=== PATIENT | female | born 1975 | race Caucasian/White ===

== ENCOUNTER 2017-07-24 17:57 | Inpatient (IN) | payer MEDICAID ==
[2017-07-24] VITALS (11 sets, daily range): BP systolic 122–284; BP diastolic 71–170; PULSE 67–74; RESP 16–27; TEMP 97.2; O2SAT 80–100
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
[2017-07-24] MEDS ORDERED: SUCCINYLCHOLINE CHLORIDE 200 MG/10 ML VIAL IV PUSH ONE (18:15)
[2017-07-24] MEDS ORDERED: ETOMIDATE 20 MG/10 ML VIAL IVP ONE (18:15)
[2017-07-24] MEDS ORDERED: SODIUM CHLORIDE 0.9% FLUSH 10 ML FLUSH IVF PRN ×2 (18:15)
[2017-07-24] MEDS ORDERED: PROPOFOL 200 MG/20 ML AMP IV ONE (18:15)
[2017-07-24 18:23] LABS: BASOPHIL # 0.1 TH/MM3 (0-0.2); BASOPHIL % 0.7 % (0.0-2.0); EOSINOPHIL # 0.8 TH/MM3 (0-0.4); EOSINOPHIL % 6.1 % (0.0-4.0); LYMPH % 24.6 % (9.0-44.0); LYMPHOCYTE # 3.2 TH/MM3 (1.0-4.8); MEAN CELL VOLUME 93.9 FL (80.0-100.0); MEAN CORPUSCULAR HEMOGLOBIN 32.8 PG (27.0-34.0); MEAN PLATELET VOLUME 8.6 FL (7.0-11.0); MONO % 6.9 % (0.0-8.0); MONOCYTE # 0.9 TH/MM3 (0-0.9); NEUT % 61.7 % (16.0-70.0); PLATELET COUNT 340 TH/MM3 (150-450); RED BLOOD COUNT 4.57 MIL/MM3 (4.00-5.30); RED CELL DISTRIBUTION WIDTH 12.6 % (11.6-17.2); WHITE BLOOD COUNT 12.9 TH/MM3 (4.0-11.0)
--- NOTE | 2017-07-24 18:23 | RADRPT ---
EXAM DATE/TIME: 07/24/2017 18:11 [place] COMPARISON: No previous studies available for comparison. INDICATIONS : Patient unresponsive; seizure en route. RADIATION DOSE: 33.29 CTDIvol (mGy) MEDICAL HISTORY : Non-responsive. SURGICAL HISTORY : Non-responsive. ENCOUNTER: Initial ACUITY: 1 day PAIN SCALE: Non-responsive LOCATION: cranial TECHNIQUE: Multiple contiguous axial images were obtained of the head. Using automated exposure control and adj ustment of the mA and/or kV according to patient size, radiation dose was kept as low as reasonably a chievable to obtain optimal diagnostic quality images. DICOM format image data is available electro nically for review and comparison. FINDINGS: The examination is abnormal demonstrating a large parenchymal uniformly hyperdense hemorrhage with ep icenter in the left mid convexity frontoparietal region measuring 5.2 x 4.8 cm. The hematoma does ex tend inferiorly into the central thalamus with the thalamic portion measuring 2.2 x 1.9 cm; there is also extension of the thalamic hemorrhage into the left mesencephalon.. There is extension of blood into the lateral 3rd and 4th ventricles. There is significant midline shift towards the right measur ing 1.3 cm. There is effacement of the supracerebellar cistern contains being some transtentorial he rniation. The calvarium is intact. CONCLUSION: Greater than 5 cm parenchymal hemorrhage involving the left parietal lobe, left thalamus, and left me sencephalon with no rupture into the ventricles, greater than 1.3 cm midline shift towards the right, and transtentorial herniation. Dejuan Rodriguez MD on July 24, 2017 at 18:16 Board Certified Radiologist. This report was verified electronically.
[2017-07-24] MEDS ORDERED: MANNITOL INJ 0 ML ONE (18:29)
[2017-07-24] MEDS ORDERED: MANNITOL 12.5 GM/50 ML VIAL IV ONE ×2 (18:30→19:15)
[2017-07-24] MEDS: PROPOFOL 1000 MG/100 ML INJ 100 ML IV PRN (18:30)
[2017-07-24] MEDS ORDERED: niCARdipine INJ 25 MG in SODIUM CHLOR 0.9% 250 ML INJ 240 ML IV PRN ×2 (18:30→19:00)
[2017-07-24] MEDS ORDERED: THROMBIN (TOPICAL) 5,000 UNIT VIAL ONE (18:35)
[2017-07-24] MEDS: GENTAMICIN SULFATE 80 MG/2 ML VIAL ONE ×2 (18:35→19:42)
[2017-07-24] MEDS ORDERED: GELFOAM SIZE 100 ONE (18:35)
[2017-07-24 18:36] LABS: PROTHROMBIN TIME - PATIENT 10.1 SEC (9.8-11.6)
[2017-07-24 18:46] LABS: ALBUMIN 4.2 GM/DL (3.4-5.0); ALKALINE PHOSPHATASE 93 U/L (45-117); ALT (GPT) 22 U/L (10-53); AST (GOT) 41 U/L (15-37); BICARBONATE 22.4 MEQ/L (21.0-32.0); BLOOD UREA NITROGEN 19 MG/DL (7-18); CALCIUM 8.1 MG/DL (8.5-10.1); CHLORIDE 104 MEQ/L (98-107); CREATININE 0.81 MG/DL (0.50-1.00); GLOMERULAR FILTRATION RATE 79 ML/MIN (>89); GLUCOSE,RANDOM 184 MG/DL (74-106); SODIUM (NA) 138 MEQ/L (136-145); TOTAL BILIRUBIN ADULT 0.5 MG/DL (0.2-1.0); TOTAL PROTEIN 7.6 GM/DL (6.4-8.2); TROPONIN I LESS THAN 0.02 NG/ML (0.02-0.05)
[2017-07-24] MEDS ORDERED: LIDOCAINE 1%/EPINEPHrine 1:100,000 SOLN 20 ML VIAL ONE (18:48)
[2017-07-24] MEDS ORDERED: CHLORHEXIDINE GLUCONATE 2 % 1 PACK (2 CLOTHS) TOP PRN ×2 (19:00→21:30)
[2017-07-24] MEDS ORDERED: NITROPRUSSIDE INJ 50 MG in DEXTROSE 5% IN WATER INJ 248 ML IV PRN ×2 (19:00)
[2017-07-24] MEDS ORDERED: fentaNYL DRIP 250 ML IV PRN (19:00)
[2017-07-24] MEDS ORDERED: MISCELLANEOUS NURSING INFORMATION XX SCH ×2 (19:00→20:15)
[2017-07-24] MEDS ORDERED: ceFAZolin 2 GM PREMIX 0 ML ONE (19:14)
[2017-07-24] MEDS ORDERED: VANCOMYCIN HCL 1000 MG VIAL ONE (19:28)
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
--- NOTE | 2017-07-24 19:52 | MB ---
cc: DIMA JAMES M.D. DATE OF CONSULTATION: 07/24/2017. REASON FOR CONSULTATION: Left basal ganglia / thalamic hemorrhage. HISTORY OF PRESENT ILLNESS: 41-year-old female who was found unresponsive with vomit and agonal respirations. EMS was summoned and brought the patient to the [facility] Emergency Room. EMS was unable to intubate her and she was intubated on arrival to the emergency room. [place] coma Score was 3 at the scene and after intubation resuscitation improved to 4 with dilated pupils, left larger than right. 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 That is when he called the EMS. She does have a history of hypertension but has not been taking any medications and does not check her blood pressure regularly. CT scan of the head obtained reveals a large left basal ganglia hemorrhage that extends into the thalamus as well as the lateral ventricle with about a centimeter [id number] midline shift. The hematoma measures about 5.8 cm in dimension. Her initial blood pressure was 270/136 and she has been placed on a Cardene drip along with Diprivan and has received mannitol also. PAST MEDICAL HISTORY: 1. Hypertension. 2. History of stroke ten years ago. MEDICATIONS: None. ALLERGIES: NO KNOWN DRUG ALLERGIES. SOCIAL HISTORY: She is . 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 She does not smoke. Drinks usually about six beers a day. denies any illicit drug use. REVIEW OF SYSTEMS: Unobtainable. The patient is comatose. FAMILY HISTORY: Positive for cerebral hemorrhages /strokes in the family but no cancer or coronary artery disease. LABORATORY FINDINGS: White blood cell count 12.9, hemoglobin 15, platelet count 340,000. PT 10.1, INR 1.0, PTT 21.9. Sodium 138, potassium 2.6, BUN 19, creatinine 0.81, glucose 184. PHYSICAL EXAMINATION: GENERAL: The patient is lying on a stretcher in the emergency room intubated and sedated with disheveled appearance. VITAL SIGNS: The initial blood pressure 270/136, currently it is 149/74, pulse is 74, respiratory rate 24 on the ventilator. Her percent FIO2 100% oxygen. HEAD: No Fields's or raccoon sign. NECK: Neck is supple with no guarding or rigidity. Midline trachea. CHEST: Clear bilaterally. HEART: Regular rate rhythm, S1-S2. ABDOMEN: Abdomen soft and nontender. No hepatosplenomegaly. 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 No deformities. No edema. SKIN: She has the abrasions in the upper and lower extremities along with ecchymosis. No rash. NEUROLOGICAL EXAMINATION: She does not open her eyes. Pupils - the left pupil is 6 mm and nonreactive, right is 5- and nonreactive. No corneal. She has a cough reflex. She has decerebrate posturing to stimulation bilaterally. [place] coma score is a 4. IMPRESSION: 1. Large left basal ganglia / thalamic hemorrhage with extension into the ventricle and associated mass effect and midline shift with very poor neurologic examination and consistent with a transtentorial herniation. 2. Unregulated hypertension, which is likely the source of the current bleed. 3. Alcohol abuse. PLAN: I had a discussion with the patient's and as a heroic measure, recommended an emergent left craniotomy for cerebral hemorrhage evacuation and ventriculostomy placement. She has received mannitol and is currently also receiving Diprivan and Fentanyl. The risks and benefits were discussed along the possibility that despite surgical intervention that she may progress to brain . In the low likelihood that she survives this hemorrhage, she will likely also have significant long-term neurologic deficits. He understands and they requested that we proceed and informed consent was obtained. She will subsequently be admitted to the intensive care unit for critical care management. Also discussed with the ER physician, Dr. Rangel and the golf tournament consultant, Dr. Madrigal. MD JUSTIN Avalos/SAWYER /7:01 PM /7:20 PM
[2017-07-24] MEDS ORDERED: CHLORHEXIDINE 0.12% (ORAL KIT) 15 ML CUP MT SCH (20:00)
[2017-07-24] MEDS ORDERED: MANNITOL 12.5 GM/50 ML VIAL IV SCH ×2 (20:00→22:00)
[2017-07-24 20:02] LABS: BILIRUBIN, URINE NEG (NEG); BLOOD, URINE LARGE (NEG); GLUCOSE,URINE 150 mg/dL (NEG); KETONE, URINE 10 mg/dL (NEG); NITRITE,URINE NEG (NEG); PH, URINE 7.5 (5.0-8.5); URINE COLOR YELLOW (YELLW/STRAW); URINE LEUKOCYTE ESTERASE NEG (NEG)
[2017-07-24] MEDS ORDERED: ACETAMINOPHEN 325 MG TAB PO PRN (20:15)
[2017-07-24] MEDS: CHLORHEXIDINE 0.12% (ORAL KIT) 15 ML CUP MT SCH (20:15)
[2017-07-24] MEDS ORDERED: RESP: ALBUTEROL 2.5 MG/3 ML NEB (PRN) INH (20:30)
--- NOTE | 2017-07-24 20:35 | PD.OP ---
Operative Report Date of Surgery: Jul 24, 2017 Preoperative Diagnosis: Large left cerebral/basal ganglia/thalamic hemorrhage with intraventricular extension Postoperative Diagnosis: Same Procedure: Left frontotemporal craniotomy with cerebral hematoma evacuation; ventriculostomy placement; microsurgical technique Anesthesia: Gen. endotracheal by Marcial Vale Surgeon: Austin Hill M.D. [facility] Supervisor(s): Betty Rascon Operation and Findings: Following initiation of a general endotracheal anesthesia the patient had invasive lines and Foster catheter in place along with the sequential compression device. A gram of vancomycin was administered intravenously and she was positioned with the left side up on a shoulder roll and head secured to a horseshoe headrest. The left side of the head shaved and prepped with ChloraPrep and sterilely draped in the usual sterile fashion. A reverse question lori incision site overlying the frontotemporal area was then made after infiltrating the scalp was 0.5% Marcaine with epinephrine solution a skin incision made extending onto the galea at the previous incision site. Jamila clips were used at the scalp edges for hemostasis and the flap retracted inferiorly with hooks. The scalp was retracted back with the fishhooks and with an automated tooling mechanic temporal wesley hole made and with the craniotome upon Elevating exposing the frontotemporal areas. The dura was opened in a cruciate format and significant brain swelling was noted along with the hemorrhage is approaching the cortical surface. A corticectomy was made in the frontal lobe and the middle frontal gyrus and about 3 cm from the cortical surface I encountered his hemorrhage in the subcortical basal ganglia area which was larger than the CT scan imaging study suggested extended to the basal ganglia as well as the lateral ventricle and this was evacuated. I did not identify any obvious underlying vascular malformation or neoplasm. After the hematoma evacuation the brain was more relaxed and pulsatile. Bipolar cautery was used for hemostasis at the hematoma evacuation bed using microtechnique with the microscope magnification. Gelfoam with thrombin also used for hemostasis. A Bactiseal ventriculostomy catheter was passed into the lateral ventricle and the tunnel on the scalp and secured the exit site with the 3-0 nylon tie. The dura was approximated using 4 Nurolon interrupted sutures along with compressed Gelfoam. The bone flap was then approximated using Kelvin mini plates. The area was then copiously irrigated. The temporalis fascia was approximated and using 2-0 Vicryl sutures and the galea reapproximated using 2- 0 Vicryl procedures and final scalp closure was with tim. A sterile pressure dressing was then applied .There were no intraoperative complications and all sponge and needle count was correct at the end of the procedure. Estimated blood loss about 150 cc. She was taken to the intensive care unit after completion of the surgical procedure. Austin Hill MD Jul 24, 2017 20:35
[2017-07-24 21:00] LABS: PHOSPHORUS 2.2 MG/DL (2.5-4.9)
[2017-07-24] MEDS ORDERED: SODIUM PHOSPHATE INJ 30 MMOL in SODIUM CHLOR 0.9% 250 ML INJ 240 ML IV PRN (21:00)
[2017-07-24] MEDS ORDERED: FAMOTIDINE 20 MG/2 ML VIAL IV PUSH PRN (21:00)
[2017-07-24] MEDS ORDERED: POTASSIUM PHOSPHATE INJ 30 MMOL in SODIUM CHLOR 0.9% 250 ML INJ 250 ML IV PRN (21:00)
[2017-07-24] MEDS ORDERED: MAGNESIUM OXIDE 400 MG TAB PO PRN (21:00)
[2017-07-24] MEDS ORDERED: levETIRAcetam INJ 500 MG in SODIUM CHLORIDE 0.9% INJ 100 ML IV SCH (21:00)
[2017-07-24] MEDS ORDERED: POTASSIUM CHLORIDE 25 MEQ EFFERVESCENT TAB PO PRN (21:00)
[2017-07-24] MEDS ORDERED: POTASSIUM CHLORIDE 25 MEQ EFFERVESCENT TAB PO ONE (21:00)
[2017-07-24] MEDS ORDERED: POTASSIUM PHOSPHATE MONOBASIC 500 MG TAB PO/TUBE PRN (21:00)
[2017-07-24] MEDS ORDERED: POTASSIUM CHLOR 20 MEQ PREMIX 100 ML IV PRN (21:00)
[2017-07-24] MEDS ORDERED: SODIUM CHLORIDE 0.9% FLUSH 10 ML FLUSH IV FLUSH PRN (21:00)
[2017-07-24] MEDS ORDERED: FAMOTIDINE 20 MG/2 ML VIAL IV PUSH SCH (21:00)
[2017-07-24] MEDS: SODIUM CHLORIDE 0.9% FLUSH 10 ML FLUSH IV FLUSH SCH (21:00)
[2017-07-24] MEDS ORDERED: FAMOTIDINE 20 MG TAB TUBE SCH (21:00)
[2017-07-24] MEDS ORDERED: FAMOTIDINE 20 MG TAB PO SCH (21:00)
[2017-07-24] MEDS ORDERED: hydrALAZINE HCL 20 MG/ML VIAL IV PUSH PRN (21:00)
[2017-07-24] MEDS ORDERED: MAGNESIUM SULFATE INJ 4 GM in SODIUM CHLORIDE 0.9% INJ 92 ML IV PRN (21:00)
[2017-07-24] MEDS: SODIUM CHLOR 0.9% 1000 ML INJ 1,000 ML IV SCH (21:00)
[2017-07-24] MEDS ORDERED: levETIRAcetam INJ 100 ML IV SCH (21:00)
[2017-07-24] MEDS: POTASSIUM CHLOR 20 MEQ PREMIX 100 ML IV SCH ×2 (21:00→23:00)
[2017-07-24] MEDS ORDERED: POTASSIUM CHLOR 40 MEQ PREMIX 100 ML IV PRN (21:00)
[2017-07-24] MEDS ORDERED: POTASSIUM PHOSPHATE MONOBASIC 500 MG TAB PO PRN (21:00)
[2017-07-24 21:02] LABS: MAGNESIUM 1.7 MG/DL (1.5-2.5)
[2017-07-24] MEDS ORDERED: SODIUM CHLORIDE 23.4% INJ 188 MEQ in SODIUM CHLOR 0.9% 1000 ML INJ 1,000 ML IV SCH (21:30)
[2017-07-24] MEDS: RESP: ALBUTEROL 2.5 MG/IPRATROPIUM 0.5 MG NEB (SCH) NEB (21:33)
[2017-07-24] MEDS: fentaNYL 2,500 MCG/NS 250 ML IV PRN (21:56)
[2017-07-24] MEDS ORDERED: SODIUM CHLORIDE 23.4% INJ 240 MEQ in SYRINGE/BAG 1 EA IV PRN (22:00)
[2017-07-24] MEDS ORDERED: MULTIVITAMIN INJ 10 ML, THIAMINE INJ 100 MG, FOLIC ACID INJ 1 MG in SODIUM CHLORID 0.9%... IV SCH (22:00)
[2017-07-24] MEDS ORDERED: MAGNESIUM SULFATE INJ 2 GM in SODIUM CHLORIDE 0.9% INJ 96 ML IV PRN (22:00)
[2017-07-24] MEDS: PANTOPRAZOLE SODIUM 40 MG VIAL IV PUSH SCH (22:00)
[2017-07-24 22:16] LABS: AUTOMATED NEUTROPHIL # 11.4 TH/MM3 (1.8-7.7); BASOPHIL % 0.2 % (0.0-2.0); EOSINOPHIL # 0.1 TH/MM3 (0-0.4); HEMATOCRIT 36.8 % (35.0-46.0); LYMPH % 6.7 % (9.0-44.0); LYMPHOCYTE # 0.9 TH/MM3 (1.0-4.8); MEAN CORPUSCULAR HEMOGLOBIN 32.5 PG (27.0-34.0); MEAN CORPUSCULAR HGB CONC 35.4 % (32.0-36.0); MEAN PLATELET VOLUME 8.4 FL (7.0-11.0); MONO % 8.4 % (0.0-8.0); MONOCYTE # 1.1 TH/MM3 (0-0.9); NEUT % 83.7 % (16.0-70.0); PLATELET COUNT 269 TH/MM3 (150-450); RED CELL DISTRIBUTION WIDTH 12.7 % (11.6-17.2); WHITE BLOOD COUNT 13.6 TH/MM3 (4.0-11.0)
--- NOTE | 2017-07-24 22:17 | PD.PROCEDR ---
Central Line Procedure REASON FOR PROCEDURE Central venous access PROCEDURE PERFORMED Central line placement: RIJ central line CONSENT Informed consent for procedure was obtained and time out performed. The risks and benefits of the procedure were discussed to include but limited to bleeding , clot formation, infection, and even . ANESTHESIA Local injection of 1% Lidocaine DESCRIPTION OF THE PROCEDURE The patient was placed in supine, mild Trendelenburg position. The area was exposed and cleansed with ChloraPrep, times two. Large sterile drape was used to cover the patient, with the site exposed, under sterile conditions including cap, face mask, sterile gown, and sterile gloves. On single attempt, the introducer needle was inserted with negative pressure in syringe and venous flash was obtained. The guide wire was then advanced without any restriction and the needle was removed. The dilator was used without any complications. Using Seldinger technique the 20 cm catheter was advanced over the guide wire to a depth of 16 centimeters. The guide wire was removed. All ports were aspirated with dark venous blood return and flushed easily with sterile saline. All ports were capped. Antibiotic disc was placed around central line at puncture site. The central line was secured to the skin with two interrupted 2.0 silk sutures. The area was bandaged with sterile see-through central line bandage. RADIOLOGICAL DATA Ultrasound guidance was used to locate RIJ. Doppler/color flow was used to confirm venous flow. COMPLICATIONS: No apparent complications ESTIMATED BLOOD LOSS: Less than 1 cc. Jolene Madrigal MD Jul 24, 2017 22:17
[2017-07-24 22:31] LABS: ALBUMIN 3.5 GM/DL (3.4-5.0); BICARBONATE 23.1 MEQ/L (21.0-32.0); CALCIUM 7.4 MG/DL (8.5-10.1); CALCIUM-PROTEIN CORRECTED 7.8 MG/DL (8.5-10.1); CREATININE 0.65 MG/DL (0.50-1.00); MAGNESIUM 1.4 MG/DL (1.5-2.5); PHOSPHORUS 2.2 MG/DL (2.5-4.9); TOTAL BILIRUBIN ADULT 0.5 MG/DL (0.2-1.0); TOTAL PROTEIN 6.3 GM/DL (6.4-8.2)
--- NOTE | 2017-07-24 22:33 | RADRPT ---
EXAM DATE/TIME: 07/24/2017 22:15 [facility] COMPARISON: No previous studies available for comparison. INDICATIONS : Central line placement. MEDICAL HISTORY : Non-responsive. SURGICAL HISTORY : Non-responsive. ENCOUNTER: Initial ACUITY: 1 day PAIN SCORE: Non-responsive. LOCATION: Bilateral chest FINDINGS: Endotracheal tube tip well above the vimal. Gastric tube traverses the [id number]. Right internal combustion engine assembler al jugular catheter tip projects over the distal superior vena cava. No evidence of pneumothorax. P atchy partially consolidated infiltrate of left lower lung with preservation of left diaphragm. The right lung is clear. CONCLUSION: Right IJ catheter in distal superior vena cava. No evidence of pneumothorax. Dejuan Rodriguez MD on July 24, 2017 at 22:30 Board Certified Radiologist. This report was verified electronically.
[2017-07-24] MEDS: levETIRAcetam INJ 500 MG in SODIUM CHLORIDE 0.9% INJ 100 ML IV SCH (22:45)
[2017-07-24] MEDS ORDERED: POTASSIUM CHLOR 40 MEQ PREMIX 100 ML IV ONE (22:45)
[2017-07-24] MEDS: MANNITOL 12.5 GM/50 ML VIAL IV SCH (22:45)
[2017-07-24 23:11] LABS: INTERNATIONAL NORMALIZED RATIO 1.1 RATIO; PROTHROMBIN TIME - PATIENT 10.7 SEC (9.8-11.6)
[2017-07-25] VITALS (21 sets, daily range): BP systolic 98–161; BP diastolic 59–80; PULSE 62–90; RESP 14–20; TEMP 97.5–99; O2SAT 99–100
[2017-07-25] MEDS: PROPOFOL 1000 MG/100 ML INJ 100 ML IV PRN ×5 (01:25→19:41)
[2017-07-25] MEDS ORDERED: ROCURONIUM INJ 50 MG/5 ML VIAL IV SCH (01:45)
[2017-07-25] MEDS: MIDAZOLAM 100 MG/NS 100 ML DRIP Premix IV PRN ×2 (01:56→19:50)
[2017-07-25] MEDS: 3% SALINE INJ 500 ML IV SCH ×3 (02:30→22:30)
[2017-07-25] MEDS: RESP: ALBUTEROL 2.5 MG/IPRATROPIUM 0.5 MG NEB (SCH) NEB ×4 (02:41→20:07)
[2017-07-25] MEDS: CHLORHEXIDINE GLUCONATE 2 % 1 PACK (2 CLOTHS) TOP SCH (04:00)
[2017-07-25] MEDS ORDERED: CHLORHEXIDINE GLUCONATE 2 % 1 PACK (2 CLOTHS) TOP SCH (04:00)
[2017-07-25 04:48] LABS: AUTOMATED NEUTROPHIL # 6.2 TH/MM3 (1.8-7.7); BASOPHIL % 0.2 % (0.0-2.0); EOSINOPHIL % 0.6 % (0.0-4.0); HEMATOCRIT 30.9 % (35.0-46.0); LYMPH % 5.7 % (9.0-44.0); LYMPHOCYTE # 0.4 TH/MM3 (1.0-4.8); MEAN CELL VOLUME 92.8 FL (80.0-100.0); MEAN CORPUSCULAR HEMOGLOBIN 33.1 PG (27.0-34.0); MEAN CORPUSCULAR HGB CONC 35.7 % (32.0-36.0); MEAN PLATELET VOLUME 8.5 FL (7.0-11.0); MONO % 8.6 % (0.0-8.0); MONOCYTE # 0.6 TH/MM3 (0-0.9); NEUT % 84.9 % (16.0-70.0); PLATELET COUNT 203 TH/MM3 (150-450); RED BLOOD COUNT 3.33 MIL/MM3 (4.00-5.30); RED CELL DISTRIBUTION WIDTH 12.7 % (11.6-17.2); WHITE BLOOD COUNT 7.3 TH/MM3 (4.0-11.0)
[2017-07-25 05:12] LABS: BICARBONATE 20.6 MEQ/L (21.0-32.0); CALCIUM 6.9 MG/DL (8.5-10.1); CALCIUM-PROTEIN CORRECTED 7.8 MG/DL (8.5-10.1); CREATININE 0.56 MG/DL (0.50-1.00); TOTAL BILIRUBIN ADULT 0.4 MG/DL (0.2-1.0); TOTAL PROTEIN 5.4 GM/DL (6.4-8.2)
[2017-07-25] MEDS: MANNITOL 12.5 GM/50 ML VIAL IV SCH ×3 (05:24→21:33)
[2017-07-25] MEDS ORDERED: GLUCAGON 1 MG/ML VIAL OTHER PRN (06:30)
--- NOTE | 2017-07-25 06:30 | HHI.CCPN ---
Subjective Remarks/Hospital Course Patient is a 41-year-old female, with possible history of hypertension , alcohol abuse who was brought to the [place] emergency department as a stroke alert. Apparently EMS was called after patient was found severely altered by with weakness on the right side. Initial blood pressure was 250s over 150. Patient started to seize and 2 mg Ativan given. Attempted intubation failed due to clenched jaw intubation. EMS gave lidocaine preparation for intubation. GCS 3 at scene and in ED. 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 Her initial BP in ED was 284/170. Patient was intubated by Dr. Rangel and was placed on propofol infusion, Cardene was initiated for blood pressure control. A stat CT of the head showed more than 5 cm intraparenchymal hemorrhage overlying left parietal left thalamus and left mesencephalon, with 1.3 cm left- to-right midline shift. Her intracranial hemorrhage most likely secondary to hypertensive emergency and not trauma or assualt related I evaluated the patient immediately in the emergency department. On my exam patient is comatose on the vent as received propofol boluses and currently is on nicardipine 5 mg per hour for blood pressure control. Right pupil is 5 mm left is 6 both and nonreactive . Patient shows extensive posturing to painful stimuli. Patient has received 25 g of mannitol, additional 12.5 mg ordered by neurosurgeon. Current SBP 270, I instructed the RN immediately give 50 mg propofol bolus, 100 g fentanyl bolus, and increase nicardipine infusion to 20 mg per hour. I also ordered as needed hydralazine and also sodium nitroprusside infusion in case we cannot control her blood pressure adequately. Dr. Hill arrived at the ED and the case was extensively discussed with him. The patient has suffered a devastating intracranial hemorrhage with poor chance of survival, however due to relatively young age Dr. Hill has offered significant for evacuation of the bleed. Prognosis remained poor even with surgery Subjective 07/25: Ventriculostomy clotted off overnight. Will be replaced as AM. Currently on midazolam, propofol and fentanyl drips for sedation. Last ICP was 7-11 per RN. Initiate tube feeding and bowel regimen today. Objective Vital Signs Date Time Temp Pulse Resp B/P (MAP) Pulse Ox O2 Delivery O2 Flow Rate FiO2 07/25/17 04:00 66 07/25/17 04:00 97.5 20 125/73 (90) 100 07/25/17 02:41 50 07/24/17 19:10 Ventilator 07/24/17 18:22 15.00 Result Diagram: 07/25/17 0420 07/25/17 0420 Imaging Last Impressions Head CT 07/24/17 1803 Signed Impressions: Service Date/Time: Monday, July 24, 2017 18:11 - CONCLUSION: Greater than 5 cm parenchymal hemorrhage involving the left parietal lobe, left thalamus, and left mesencephalon with no rupture into the ventricles, greater than 1.3 cm midline shift towards the right, and transtentorial herniation. Dejuan Rodriguez MD Chest X-Ray 07/24/17 0000 Signed Impressions: Service Date/Time: Monday, July 24, 2017 22:15 - CONCLUSION: Right IJ catheter in distal superior vena cava. No evidence of pneumothorax. Dejuan Rodriguez MD Objective Remarks GENERAL: 41-year-old female unresponsive on the vent orotracheally intubated SKIN: Warm and dry. Old appearing bruises on trunk and extremities including the left face HEAD: Status post left temporoparietal craniotomy with ventriculostomy placed Ecchymosis left side of face. EYES: Right pupil 4 mm left is 2 mm nonreactive ENT: Orotracheally intubated, NECK: Trachea midline. No JVD. right IJ is clean dry and intact CARDIOVASCULAR: Bradycardic, RR. S1, S2. No S4.. Systolic murmur grade 2 LSB. RESPIRATORY: Clear to auscultation bilaterally. No wheezing rales or rhonchi. Symmetrical excursion. GASTROINTESTINAL: Abdomen soft, non-tender, nondistended. Hypoactive bowel sounds are appreciated MUSCULOSKELETAL: Old appearing bruises on anterior shins NEUROLOGICAL: GCS 3. Positive corneal reflex. Positive gag. Upward toes. Does not withdraw to pain. Urinary Catheter: Yes Assessment to: Continue Foster insert reason: Prolonged Immobilization Vascular Central Line Catheter: Yes Assessment to: Continue Date of Insertion: Jul 24, 2017 Line: Central Venous Catheter Side: Right Location: Internal, Jugular A/P Assessment and Plan NEURO/PSYCH: Severe left basal ganglia and thalamic hemorrhage with intraventricular extension 1.3 cm [id number] midline shift Severe acute encephalopathy Alcohol abuse THC -Postop day #1 left frontal temporal craniotomy with ventriculostomy replacement with evacuation of hematoma Dr. Hill - Received 37.5 g of mannitol stat, continue 25 g IV every 8. Hold if serum osm greater than 310 - Keep Na above 145 with 3% saline currently at 20 cc an hour -Levetiracetam 500 mg IV twice a day 7 days for seizure prophylaxis -Currently on propofol at 50 mcg/kg per minute, fentanyl drip at 250 grams an hour and midazolam @ 4 milligrams an hour for sedation/analgesia while intubated for sedation and vent synchrony - End tidal CO2 35-40 - Ventriculostomy -5 Cm Hg. 48 cc SS - Follow up CT head in a.m. - Supplement multivitamin thiamine and folic acid and vitamin bag daily - Further recommendation per Dr. Hill RESP: Acute respiratory failure - ACV 20/550/5/50 - vent bundle -Albuterol/ipratropium aerosols every 6 hours scheduled and when necessary albuterol aerosols every 2 hours - Recommend weaning until neuro status improved CV: Hypertensive emergency - Normal saline IV fluids 75 ml per hour, 3% saline at 20 ml per hour -Cardene infusion, hydralazine 20 mg IV every 4 hours when necessary to keep SBP less than 150 diastolic blood pressure less than 90 - Sodium nitroprusside infusion if needed - 2-D echo if patient makes meaningful recovery GI: Hypoalbuminemia Start on vital 1.5 goal 50 cc an hour Pantoprazole for GI prophylaxis Docusate sodium 100 twice a day, senna 8.6 mg twice a day for bowel regimen : - Monitor renal function closely. Foster catheter. IV hydration as above ID: - Perioperative antibiotics per Dr. Hill - Monitor for infection HEME: Normocytic anemia - Monitor CBC, CMP, coags ENDO: Sliding-scale insulin with Novulin R with Accu-Cheks every 6 hours to maintain euglycemia/moderate regimen FEN: Hypo-magnesium Hypophosphatemia Replace electrolytes as clinically indicated per ICU electrolyte protocol PROPH: - Bilateral lower extremity SCDs. Chemical DVT prophylaxis is contraindicated due to intracranial hemorrhage. IV pantoprazole Critical Care: The total critical care time was 35 minutes. Time to perform other separately billable procedures was not included in the critical care time. Roger Spain MD Jul 25, 2017 06:30
[2017-07-25] MEDS: CHLORHEXIDINE 0.12% (ORAL KIT) 15 ML CUP MT SCH ×2 (08:00→19:42)
--- NOTE | 2017-07-25 08:47 | HHI.NSPN ---
(Lawrence Borja) History Chief Complaint: ICH. (Lawrence Borja) Interval History 41-year-old female who was found unresponsive with vomit and agonal respirations. EMS was summoned and brought the patient to the [facility] Emergency Room. EMS was unable to intubate her and she was intubated on arrival to the emergency room. Verner coma Score was 3 at the scene and after intubation resuscitation improved to 4 with dilated pupils, left larger than right. 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 That is when he called the EMS. She does have a history of hypertension but has not been taking any medications and does not check her blood pressure regularly. CT scan of the head obtained reveals a large left basal ganglia hemorrhage that extends into the thalamus as well as the lateral ventricle with about a centimeter [id number] midline shift. The hematoma measures about 5.8 cm in dimension. Her initial blood pressure was 270/136 and she has been placed on a Cardene drip along with Diprivan and has received mannitol also. 07/25/17: Pt sedated on Diprivan, Fentanyl, and Versed drips. Left pupil 3mm right 2mm NR bilaterally. No response to pain in upper chest. Ventriculostomy drain in place with blood, no waveform. (Lawrence Borja) System Review Comments Not able to obtain given clinical condition. (Lawrence Borja) Exam Results Vital Signs Date Time Temp Pulse Resp B/P (MAP) Pulse Ox O2 Delivery O2 Flow Rate FiO2 07/25/17 06:00 66 07/25/17 04:00 97.5 20 125/73 (90) 100 07/25/17 02:41 50 07/24/17 19:10 Ventilator 07/24/17 18:22 15.00 Intake and Output 07/25/17 07/25/17 07/26/17 08:00 16:00 00:00 Output Total 1000 ml Balance -1000 ml (Lawrence Borja) Physical Examination General: Pt in ICU heavily sedated with Diprivan, Fentanyl, and Versed drips. Eyes: Left pupil 3mm NR right 2mm NR. Sclera anicteric. Resp: Intubated. A/C rate 20. FiO2 50%. Peep 5. Heart: NSR no murmurs Abd: Soft positive bs Skin: Head bandaged dry. SCDs in place. Muscle: Not following for muscle testing. No response to pain in upper chest. Neuro: Pt sedated on Diprivan, Fentanyl, and Versed drips. Not opening eyes. Left pupil 3mm right pupil 2mm NR bilaterally. Not following commands. No response to pain in upper chest. (Lawrence Borja) Lab, Micro, Other Results Last Impressions Head CT 07/24/17 1803 Signed Impressions: Service Date/Time: Monday, July 24, 2017 18:11 - CONCLUSION: Greater than 5 cm parenchymal hemorrhage involving the left parietal lobe, left thalamus, and left mesencephalon with no rupture into the ventricles, greater than 1.3 cm midline shift towards the right, and transtentorial herniation. Dejuan Rodriguez MD Chest X-Ray 07/24/17 0000 Signed Impressions: Service Date/Time: Monday, July 24, 2017 22:15 - CONCLUSION: Right IJ catheter in distal superior vena cava. No evidence of pneumothorax. Dejuan Rodriguez MD Laboratory Tests Test 07/24/17 18:10 07/24/17 18:20 07/24/17 19:20 07/24/17 19:42 White Blood Count 12.9 TH/MM3 Red Blood Count 4.57 MIL/MM3 Hemoglobin 15.0 GM/DL Hematocrit 43.0 % Mean Corpuscular Volume 93.9 FL Mean Corpuscular Hemoglobin 32.8 PG Mean Corpuscular Hemoglobin Concent 35.0 % Red Cell Distribution Width 12.6 % Platelet Count 340 TH/MM3 Mean Platelet Volume 8.6 FL Neutrophils (%) (Auto) 61.7 % Lymphocytes (%) (Auto) 24.6 % Monocytes (%) (Auto) 6.9 % Eosinophils (%) (Auto) 6.1 % Basophils (%) (Auto) 0.7 % Neutrophils # (Auto) 8.0 TH/MM3 Lymphocytes # (Auto) 3.2 TH/MM3 Monocytes # (Auto) 0.9 TH/MM3 Eosinophils # (Auto) 0.8 TH/MM3 Basophils # (Auto) 0.1 TH/MM3 CBC Comment DIFF FINAL Differential Comment Prothrombin Time 10.1 SEC Prothromb Time International Ratio 1.0 RATIO Activated Partial Thromboplast Time 21.9 SEC Blood Urea Nitrogen 19 MG/DL Creatinine 0.81 MG/DL Random Glucose 184 MG/DL Total Protein 7.6 GM/DL Albumin 4.2 GM/DL Calcium Level 8.1 MG/DL Alkaline Phosphatase 93 U/L Aspartate Amino Transf (AST/SGOT) 41 U/L Alanine Aminotransferase (ALT/SGPT) 22 U/L Total Bilirubin 0.5 MG/DL Sodium Level 138 MEQ/L Potassium Level 2.6 MEQ/L Chloride Level 104 MEQ/L Carbon Dioxide Level 22.4 MEQ/L Anion Gap 12 MEQ/L Estimat Glomerular Filtration Rate 79 ML/MIN Phosphorus Level 2.2 MG/DL Magnesium Level 1.7 MG/DL Total Creatine Kinase 424 U/L Creatine Kinase MB 3.1 NG/ML Creatine Kinase MB % 0.7 % Troponin I LESS THAN 0.02 NG/ML Ethyl Alcohol Level LESS THAN 3 MG/DL Blood Gas Puncture Site LT RADIAL LU Blood Gas HCO3 20 mmol/L 21 mmol/L Blood Gas Base Excess -5.1 mmol/L -3.7 mmol/L Blood Gas Oxygen Saturation 95 % 97 % Arterial Blood pH 7.35 7.33 Arterial Blood Partial Pressure CO2 36 mmHg 42 mmHg Arterial Blood Partial Pressure O2 81 mmHG 300 mmHg Arterial Blood Oxygen Content 19.9 Vol % 19.5 Vol % Arterial Blood Carboxyhemoglobin 1.6 % 1.1 % Arterial Blood Methemoglobin 0.8 % 1.3 % Blood Gas Hemoglobin 15.0 G/DL 13.8 G/DL Oxygen Delivery Device MASK VENTILATOR Blood Gas Liter Flow 15 L/M Blood Gas Inspired Oxygen 100 % 100 % Urine Color YELLOW Urine Turbidity CLEAR Urine pH 7.5 Urine Specific [place] 1.010 Urine Protein 100 mg/dL Urine Glucose (UA) 150 mg/dL Urine Ketones 10 mg/dL Urine Occult Blood LARGE Urine Nitrite NEG Urine Bilirubin NEG Urine Urobilinogen LESS THAN 2.0 MG/DL Urine Leukocyte Esterase NEG Urine RBC /hpf Urine WBC LESS THAN 1 /hpf Microscopic Urinalysis Comment CATH-CULT NOT IND Urine Opiates Screen NEG Urine Barbiturates Screen NEG Urine Amphetamines Screen NEG Urine Benzodiazepines Screen NEG Urine Cocaine Screen NEG Urine Cannabinoids Screen POS Blood Gas Patient Temperature 98.6 Blood Gas Ventilator Setting OR SETTINGS Test 07/24/17 21:40 07/24/17 21:51 07/24/17 22:12 07/25/17 04:20 White Blood Count 13.6 TH/MM3 7.3 TH/MM3 Red Blood Count 4.00 MIL/MM3 3.33 MIL/MM3 Hemoglobin 13.0 GM/DL 11.0 GM/DL Hematocrit 36.8 % 30.9 % Mean Corpuscular Volume 92.0 FL 92.8 FL Mean Corpuscular Hemoglobin 32.5 PG 33.1 PG Mean Corpuscular Hemoglobin Concent 35.4 % 35.7 % Red Cell Distribution Width 12.7 % 12.7 % Platelet Count 269 TH/MM3 203 TH/MM3 Mean Platelet Volume 8.4 FL 8.5 FL Neutrophils (%) (Auto) 83.7 % 84.9 % Lymphocytes (%) (Auto) 6.7 % 5.7 % Monocytes (%) (Auto) 8.4 % 8.6 % Eosinophils (%) (Auto) 1.0 % 0.6 % Basophils (%) (Auto) 0.2 % 0.2 % Neutrophils # (Auto) 11.4 TH/MM3 6.2 TH/MM3 Lymphocytes # (Auto) 0.9 TH/MM3 0.4 TH/MM3 Monocytes # (Auto) 1.1 TH/MM3 0.6 TH/MM3 Eosinophils # (Auto) 0.1 TH/MM3 0.0 TH/MM3 Basophils # (Auto) 0.0 TH/MM3 0.0 TH/MM3 CBC Comment DIFF FINAL DIFF FINAL Differential Comment Blood Urea Nitrogen 17 MG/DL 14 MG/DL Creatinine 0.65 MG/DL 0.56 MG/DL Random Glucose 128 MG/DL 98 MG/DL Total Protein 6.3 GM/DL 5.4 GM/DL Albumin 3.5 GM/DL 3.0 GM/DL Calcium Level 7.4 MG/DL 6.9 MG/DL Phosphorus Level 2.2 MG/DL Magnesium Level 1.4 MG/DL Alkaline Phosphatase 80 U/L 73 U/L Aspartate Amino Transf (AST/SGOT) 36 U/L 30 U/L Alanine Aminotransferase (ALT/SGPT) 18 U/L 19 U/L Total Bilirubin 0.5 MG/DL 0.4 MG/DL Sodium Level 139 MEQ/L 150 MEQ/L Potassium Level 2.8 MEQ/L 4.2 MEQ/L Chloride Level 106 MEQ/L 122 MEQ/L Carbon Dioxide Level 23.1 MEQ/L 20.6 MEQ/L Anion Gap 10 MEQ/L 7 MEQ/L Estimat Glomerular Filtration Rate 101 ML/MIN 121 ML/MIN Serum Osmolality 301 MOSM/KG 312 MOSM/KG Protein Corrected Calcium 7.8 MG/DL 7.8 MG/DL Prothrombin Time 10.7 SEC Prothromb Time International Ratio 1.1 RATIO Fibrinogen 185 mg/dL Nasal Screen MRSA (PCR) MRSA NOT DETECTED (Lawrence Borja) Medical Decision Making Impression and Plan A: 41 y/o FM with large left basal ganglia / thalamic hemorrhage with extension into the ventricle and associated mass effect and midline shift with very poor neurologic examination and consistent with a transtentorial herniation. 2. Unregulated hypertension, which is likely the source of the current bleed. 3. Alcohol abuse. PLAN: Continue with close Neuro checks. Continue with critical care. Was asked to flush ventriculostomy this morning by Dr. Hill. The Ventriculostomy drain CSF reservoir was cleaned with Betadine solution. the ventriculostomy drain was clamped to the pt and I flushed 10cc of NS into the reservoir to flush out a large amount of blood that had clogged the line. The ventric was opened to the pt with still no drainage or measurable ICP. I then flushed 4cc of NS to the pt, and post flush there was some drainage into the ventric and ICP measured two but no waveform. Drain was left open to drain to see if it starts to drain again. There was no change in pupils or neuro exam after flushing the ventric. (Lawrence Borja) Attending Statement The exam, history, and the medical decision-making described in the above note were completed with the assistance of the mid-level provider. I reviewed and agree with the findings presented. I attest that I had a [id number] encounter with the patient on the same day, and personally performed and documented my assessment and findings in the medical record. Ventriculostomy a draining after flushing blood clots good waveform and normal ICP. We will decrease the sedation as tolerated and ICP allows. Continue with supportive care. (Austin Hill MD) Lawrence Borja Jul 25, 2017 08:47 Austin Hill MD Jul 25, 2017 13:22
[2017-07-25] MEDS: SODIUM CHLORIDE 0.9% FLUSH 10 ML FLUSH IV FLUSH SCH ×2 (08:48→19:42)
[2017-07-25] MEDS: levETIRAcetam INJ 500 MG in SODIUM CHLORIDE 0.9% INJ 100 ML IV SCH ×2 (08:52→19:51)
[2017-07-25] MEDS: PANTOPRAZOLE SODIUM 40 MG VIAL IV PUSH SCH (08:52)
[2017-07-25] MEDS: DOCUSATE SODIUM 100 MG/10 ML UDC PO SCH ×2 (08:52→19:51)
[2017-07-25] MEDS: SODIUM CHLOR 0.9% 1000 ML INJ 1,000 ML IV SCH ×2 (08:52→22:57)
[2017-07-25] MEDS: SENNOSIDES SYRUP 8.8 MG/5 ML CUP NG SCH ×2 (08:52→19:42)
[2017-07-25] MEDS ORDERED: TERBUTALINE INJ 1 MG/ML AMP SQ PRN (11:15)
[2017-07-25] MEDS: NOREPINEPHRINE INJ 4 MG in SODIUM CHLOR 0.9% 250 ML INJ 250 ML IV PRN ×2 (11:54→20:41)
[2017-07-25] MEDS: INSULIN NovoLIN REGULAR SUPPLEMENTAL SCALE SQ SCH ×2 (12:00→19:05)
[2017-07-25] MEDS: ARTIFICIAL TEARS OPTH SOLN 15 ML BTL EACH EYE SCH ×3 (14:00→22:00)
[2017-07-25 14:12] LABS: SODIUM (NA) 155 MEQ/L (136-145)
--- NOTE | 2017-07-25 15:35 | RADRPT ---
EXAM DATE/TIME: 07/25/2017 15:05 [facility] COMPARISON: CT BRAIN W/O CONTRAST, July 24, 2017, 18:11. INDICATIONS : Intracerebral hemorrhage. RADIATION DOSE: 56.77 CTDIvol (mGy) MEDICAL HISTORY : Hypertension. SURGICAL HISTORY : Craniotomy. ENCOUNTER: Subsequent ACUITY: 1 day PAIN SCALE: Non-responsive LOCATION: cranial TECHNIQUE: Multiple contiguous axial images were obtained of the head. Using automated exposure control and adj ustment of the mA and/or kV according to patient size, radiation dose was kept as low as reasonably a chievable to obtain optimal diagnostic quality images. DICOM format image data is available electro nically for review and comparison. FINDINGS: Post surgical findings in the left frontal region with evidence of interval craniotomy. Surgical drai n is in place in the region of the left basal ganglia. There's been interval decrease in size of pare nchymal hemorrhage in this area now measuring 4.1 x 2.5 cm compared to 5.2 x 4.8 cm. Decrease in left -to-right midline shift, now measuring 5 mm compared to 14 mm on the prior study. Persistent extensiv e intraventricular component of hemorrhage involving the anterior and posterior horns of lateral vent ricles as well as the third ventricle and fourth ventricle. CONCLUSION: Post surgical findings the left frontal region with decrease in size of left sided parenchymal hemorr ronit. Surgical drain now in place. Intraventricular hemorrhage component again seen. Michel Phillips MD on July 25, 2017 at 15:28 Board Certified Radiologist. This report was verified electronically.
[2017-07-25] MEDS ORDERED: SODIUM CHLORIDE 23.4% INJ 240 MEQ in SYRINGE/BAG 1 EA IV ONE (16:00)
--- NOTE | 2017-07-25 16:18 | PD.OP ---
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 Plush Cutter(s): None Operation and Findings: Informed consent was obtained from the patient's . Following continuation of Diprivan, fentanyl and Versed drips with the oxygen saturation and hemodynamic monitoring in the intensive care unit, the right frontal region was shaved and the prep with chlor prep and sterilely draped. Using landmarks of 11 cm behind the nasion and 3 cm to the right of the midline, a 1 cm scalp incision was made after infiltrating with 1% lidocaine with epinephrine solution. With a handheld drill a twist drill hole was made in the underlying dura penetrated with a blunt probe. The bactiseal ventriculostomy catheter was then passed into the lateral ventricle at a depth of 7 cm with blood tinged CSF encountered with an opening pressure around 18 cm H20. After drainage of CSF the pressures were down to 8 cm H20. The distal end of the ventriculostomy was then tunneled under the scalp with a trocar and secured to the exit site with a 3-0 nylon thigh and connected to a drainage bag. Scalp incision site was approximated with 3-0 nylon interrupted stitches A sterile dressing was applied. There were no complications and blood loss was less than 5 cc. Austin Hill MD Jul 25, 2017 16:18
[2017-07-25] MEDS: fentaNYL 2,500 MCG/NS 250 ML IV PRN (19:40)
[2017-07-26] VITALS (22 sets, daily range): BP systolic 104–141; BP diastolic 57–82; PULSE 17–70; RESP 15–20; TEMP 92.8–98.8; O2SAT 100
[2017-07-26] MEDS: PROPOFOL 1000 MG/100 ML INJ 100 ML IV PRN ×5 (00:10→17:29)
[2017-07-26] MEDS ORDERED: MIDAZOLAM HCL 5 MG/5 ML VIAL IV PUSH ONE (00:15)
[2017-07-26] MEDS ORDERED: 3% SALINE INJ 250 ML IV ONE (01:00)
[2017-07-26] MEDS: CHLORHEXIDINE GLUCONATE 2 % 1 PACK (2 CLOTHS) TOP SCH (02:34)
[2017-07-26] MEDS: NOREPINEPHRINE INJ 4 MG in SODIUM CHLOR 0.9% 250 ML INJ 250 ML IV PRN ×2 (03:24→17:28)
[2017-07-26] MEDS: RESP: ALBUTEROL 2.5 MG/IPRATROPIUM 0.5 MG NEB (SCH) NEB ×4 (04:07→20:01)
[2017-07-26 04:11] LABS: ALBUMIN 2.7 GM/DL (3.4-5.0); BICARBONATE 20.2 MEQ/L (21.0-32.0); CALCIUM 6.9 MG/DL (8.5-10.1); CALCIUM-PROTEIN CORRECTED 7.9 MG/DL (8.5-10.1); CREATININE 0.61 MG/DL (0.50-1.00); MAGNESIUM 1.7 MG/DL (1.5-2.5); PHOSPHORUS 2.2 MG/DL (2.5-4.9); TOTAL BILIRUBIN ADULT 0.2 MG/DL (0.2-1.0); TOTAL PROTEIN 5.1 GM/DL (6.4-8.2)
[2017-07-26 04:16] LABS: AUTOMATED NEUTROPHIL # 6.9 TH/MM3 (1.8-7.7); BASOPHIL % 0.3 % (0.0-2.0); EOSINOPHIL # 0.2 TH/MM3 (0-0.4); EOSINOPHIL % 1.8 % (0.0-4.0); HEMATOCRIT 30.1 % (35.0-46.0); LYMPH % 6.9 % (9.0-44.0); LYMPHOCYTE # 0.6 TH/MM3 (1.0-4.8); MEAN CELL VOLUME 96.7 FL (80.0-100.0); MEAN CORPUSCULAR HEMOGLOBIN 32.1 PG (27.0-34.0); MEAN CORPUSCULAR HGB CONC 33.2 % (32.0-36.0); MEAN PLATELET VOLUME 8.2 FL (7.0-11.0); MONO % 8.8 % (0.0-8.0); MONOCYTE # 0.7 TH/MM3 (0-0.9); NEUT % 82.2 % (16.0-70.0); PLATELET COUNT 172 TH/MM3 (150-450); RED BLOOD COUNT 3.11 MIL/MM3 (4.00-5.30); RED CELL DISTRIBUTION WIDTH 13.3 % (11.6-17.2); WHITE BLOOD COUNT 8.4 TH/MM3 (4.0-11.0)
[2017-07-26] MEDS: fentaNYL 2,500 MCG/NS 250 ML IV PRN ×2 (04:47→14:24)
[2017-07-26] MEDS: INSULIN NovoLIN REGULAR SUPPLEMENTAL SCALE SQ SCH ×4 (04:52→18:00)
[2017-07-26] MEDS: MANNITOL 12.5 GM/50 ML VIAL IV SCH ×3 (05:04→22:00)
[2017-07-26] MEDS: ARTIFICIAL TEARS OPTH SOLN 15 ML BTL EACH EYE SCH ×3 (05:20→22:00)
[2017-07-26] MEDS: MIDAZOLAM 100 MG/NS 100 ML DRIP Premix IV PRN ×2 (05:20→14:25)
--- NOTE | 2017-07-26 06:14 | RADRPT ---
EXAM DATE/TIME: 07/26/2017 03:32 [facility] COMPARISON: CHEST SINGLE AP, July 24, 2017, 22:15. INDICATIONS : Respiratory failure. MEDICAL HISTORY : Hypertension. SURGICAL HISTORY : Craniotomy. ENCOUNTER: Subsequent ACUITY: 3 days PAIN SCORE: Non-responsive. LOCATION: Bilateral chest FINDINGS: Endotracheal tube tip is just above the vimal. Nasogastric tube coils in the stomach. The right neck central line is stable in good position. There is consolidation in the left lung base. Right lung is grossly clear. Cardiac contours are stable accounting for differences in technique and projection. CONCLUSION: Interval worsening in aeration in the left lung base Rohan Montenegro MD on July 26, 2017 at 6:11 Board Certified Radiologist. This report was verified electronically.
[2017-07-26] MEDS ORDERED: CISATRACURIUM BESYLATE 20 MG/10 ML VIAL IV PUSH ONE (07:30)
--- NOTE | 2017-07-26 07:46 | HHI.NSPN ---
(Lawrence Borja) History Chief Complaint: ICH. (Lawrence Borja) Interval History 41-year-old female who was found unresponsive with vomit and agonal respirations. EMS was summoned and brought the patient to the [facility] Emergency Room. EMS was unable to intubate her and she was intubated on arrival to the emergency room. [place] coma Score was 3 at the scene and after intubation resuscitation improved to 4 with dilated pupils, left larger than right. 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 That is when he called the EMS. She does have a history of hypertension but has not been taking any medications and does not check her blood pressure regularly. CT scan of the head obtained reveals a large left basal ganglia hemorrhage that extends into the thalamus as well as the lateral ventricle with about a centimeter [id number] midline shift. The hematoma measures about 5.8 cm in dimension. Her initial blood pressure was 270/136 and she has been placed on a Cardene drip along with Diprivan and has received mannitol also. 07/25/17: Pt sedated on Diprivan, Fentanyl, and Versed drips. Left pupil 3mm right 2mm NR bilaterally. No response to pain in upper chest. Ventriculostomy drain in place with blood, no waveform. 07/26/17: Pt heavily sedated on Diprivan, Fentanyl, and Versed drips. Left pupil 3mm right 2mm NR bilaterally. No response to pain. Ventriculostomy in place bilaterally. Right ventriculostomy drain with good ICP waveform. Pt requiring prn medications in addition to drips listed to keep ICP less than 20. (Lawrence Borja) System Review Comments Not able to obtain given clinical condition. (Lawrence Borja) Exam Results Vital Signs Date Time Temp Pulse Resp B/P (MAP) Pulse Ox O2 Delivery O2 Flow Rate FiO2 07/26/17 06:33 70 132/75 07/26/17 04:07 100 40 07/26/17 04:00 98.2 15 07/25/17 19:00 Mechanical Ventilator 07/24/17 18:22 15.00 Intake and Output 07/26/17 07/26/17 07/27/17 08:00 16:00 00:00 Intake Total 7473 ml Output Total 600 ml Balance 6873 ml (Lawrence Borja) Physical Examination General: Pt in ICU heavily sedated with Diprivan, Fentanyl, and Versed drips. Eyes: Left pupil 3mm NR right 2mm NR. Sclera anicteric. Resp: Intubated. A/C rate 10. FiO2 40%. Peep 5. Heart: NSR no murmurs Abd: Soft positive bs Skin: Incision clean and dry. SCDs in place. Muscle: Not following for muscle testing. No response to pain in upper chest. Neuro: Pt sedated on Diprivan, Fentanyl, and Versed drips. Not opening eyes. Left pupil 3mm right pupil 2mm NR bilaterally. Not following commands. No response to pain in upper chest.Right ventric at 5cm H20 blood tinged CSF ICPs with good waveform 20, left ventriculostomy drain at -5 with blood in line. (Lawrence Borja) Lab, Micro, Other Results Last Impressions Chest X-Ray 07/26/17 0600 Signed Impressions: Service Date/Time: Wednesday, July 26, 2017 03:32 - CONCLUSION: Interval worsening in aeration in the left lung base Rohan Montenegro MD Head CT 07/25/17 0000 Signed Impressions: Service Date/Time: Tuesday, July 25, 2017 15:05 - CONCLUSION: Post surgical findings the left frontal region with decrease in size of left sided parenchymal hemorrhage. Surgical drain now in place. Intraventricular hemorrhage component again seen. Michel Phillips MD Laboratory Tests Test 07/25/17 12:40 07/25/17 19:30 07/25/17 22:30 07/26/17 00:28 Sodium Level 155 MEQ/L 154 MEQ/L Potassium Level 4.2 MEQ/L Serum Osmolality 321 MOSM/KG 320 MOSM/KG Human Chorionic Gonadotropin, Quant LESS THAN 1 MIU/ML Blood Gas Puncture Site RT BRACHIAL Blood Gas Patient Temperature 98.6 Blood Gas HCO3 18 mmol/L Blood Gas Base Excess -7.5 mmol/L Blood Gas Oxygen Saturation 97 % Arterial Blood pH 7.29 Arterial Blood Partial Pressure CO2 38 mmHg Arterial Blood Partial Pressure O2 123 mmHg Arterial Blood Oxygen Content 14.2 Vol % Arterial Blood Carboxyhemoglobin 0.8 % Arterial Blood Methemoglobin 1.1 % Blood Gas Hemoglobin 10.3 G/DL Oxygen Delivery Device VENTILATOR Blood Gas Ventilator Setting AC 10/550/5PEEP Blood Gas Inspired Oxygen 40 % Test 07/26/17 03:25 White Blood Count 8.4 TH/MM3 Red Blood Count 3.11 MIL/MM3 Hemoglobin 10.0 GM/DL Hematocrit 30.1 % Mean Corpuscular Volume 96.7 FL Mean Corpuscular Hemoglobin 32.1 PG Mean Corpuscular Hemoglobin Concent 33.2 % Red Cell Distribution Width 13.3 % Platelet Count 172 TH/MM3 Mean Platelet Volume 8.2 FL Neutrophils (%) (Auto) 82.2 % Lymphocytes (%) (Auto) 6.9 % Monocytes (%) (Auto) 8.8 % Eosinophils (%) (Auto) 1.8 % Basophils (%) (Auto) 0.3 % Neutrophils # (Auto) 6.9 TH/MM3 Lymphocytes # (Auto) 0.6 TH/MM3 Monocytes # (Auto) 0.7 TH/MM3 Eosinophils # (Auto) 0.2 TH/MM3 Basophils # (Auto) 0.0 TH/MM3 CBC Comment DIFF FINAL Differential Comment Blood Urea Nitrogen 13 MG/DL Creatinine 0.61 MG/DL Random Glucose 98 MG/DL Total Protein 5.1 GM/DL Albumin 2.7 GM/DL Calcium Level 6.9 MG/DL Phosphorus Level 2.2 MG/DL Magnesium Level 1.7 MG/DL Alkaline Phosphatase 66 U/L Aspartate Amino Transf (AST/SGOT) 16 U/L Alanine Aminotransferase (ALT/SGPT) 16 U/L Total Bilirubin 0.2 MG/DL Sodium Level 160 MEQ/L Potassium Level 3.9 MEQ/L Chloride Level 133 MEQ/L Carbon Dioxide Level 20.2 MEQ/L Anion Gap 7 MEQ/L Estimat Glomerular Filtration Rate 109 ML/MIN Serum Osmolality 327 MOSM/KG Protein Corrected Calcium 7.9 MG/DL (Lawrence Borja) Medical Decision Making Impression and Plan A: 41 y/o FM with large left basal ganglia / thalamic hemorrhage with extension into the ventricle and associated mass effect and midline shift with very poor neurologic examination and consistent with a transtentorial herniation. 2. Unregulated hypertension, which is likely the source of the current bleed. 3. Alcohol abuse. PLAN: Continue with close Neuro checks. Continue with critical care. Discussed with RN and critical care. We will add paralytics to keep ICP less than 20. (Lawrence Borja) Attending Statement The exam, history, and the medical decision-making described in the above note were completed with the assistance of the mid-level provider. I reviewed and agree with the findings presented. I attest that I had a [id number] encounter with the patient on the same day, and personally performed and documented my assessment and findings in the medical record. Patient's ICPs high teens to low 20s with bilateral ventriculostomies and draining and status post left craniotomy for hematoma evacuation. She is essentially maxed out on medical management also. We'll add muscle paralytics and hypothermia to ICP control regimen. Prognosis is grim and discussed with the children and family at bedside. (Austin Hill MD) Lawrence Borja Jul 26, 2017 07:46 Austin Hill MD Jul 26, 2017 10:24
[2017-07-26] MEDS: CHLORHEXIDINE 0.12% (ORAL KIT) 15 ML CUP MT SCH ×2 (08:00→19:44)
[2017-07-26] MEDS: CISATRACURIUM INJ 100 MG in SODIUM CHLOR 0.9% 250 ML INJ 250 ML IV PRN ×4 (08:00→22:59)
[2017-07-26] MEDS: DOCUSATE SODIUM 100 MG/10 ML UDC PO SCH ×2 (08:01→19:43)
[2017-07-26] MEDS: SENNOSIDES SYRUP 8.8 MG/5 ML CUP NG SCH ×2 (08:01→19:44)
[2017-07-26] MEDS: PANTOPRAZOLE SODIUM 40 MG VIAL IV PUSH SCH (08:01)
--- NOTE | 2017-07-26 08:22 | HHI.CCPN ---
Subjective Remarks/Hospital Course Patient is a 41-year-old female, with possible history of hypertension , alcohol abuse who was brought to the [place] emergency department as a stroke alert. Apparently EMS was called after patient was found severely altered by with weakness on the right side. Initial blood pressure was 250s over 150. Patient started to seize and 2 mg Ativan given. Attempted intubation failed due to clenched jaw intubation. EMS gave lidocaine preparation for intubation. GCS 3 at scene and in ED. 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 Her initial BP in ED was 284/170. Patient was intubated by Dr. Rangel and was placed on propofol infusion, Cardene was initiated for blood pressure control. A stat CT of the head showed more than 5 cm intraparenchymal hemorrhage overlying left parietal left thalamus and left mesencephalon, with 1.3 cm left- to-right midline shift. Her intracranial hemorrhage most likely secondary to hypertensive emergency and not trauma or assualt related I evaluated the patient immediately in the emergency department. On my exam patient is comatose on the vent as received propofol boluses and currently is on nicardipine 5 mg per hour for blood pressure control. Right pupil is 5 mm left is 6 both and nonreactive . Patient shows extensive posturing to painful stimuli. Patient has received 25 g of mannitol, additional 12.5 mg ordered by neurosurgeon. Current SBP 270, I instructed the RN immediately give 50 mg propofol bolus, 100 g fentanyl bolus, and increase nicardipine infusion to 20 mg per hour. I also ordered as needed hydralazine and also sodium nitroprusside infusion in case we cannot control her blood pressure adequately. Dr. Hill arrived at the ED and the case was extensively discussed with him. The patient has suffered a devastating intracranial hemorrhage with poor chance of survival, however due to relatively young age Dr. Hill has offered significant for evacuation of the bleed. Prognosis remained poor even with surgery 07/25: Ventriculostomy clotted off overnight. Will be replaced as AM. Currently on midazolam, propofol and fentanyl drips for sedation. Last ICP was 7-11 per RN. Initiate tube feeding and bowel regimen today. Subjective 07/26: Patient continues with bilateral ventriculostomies. Overnight received 1 dose of hypertonic saline and potassium. ICP is currently 25. Started on cisatracurium remain elevated. Discussed with Dr. Hill. We will place cooling catheter. Objective Vital Signs Date Time Temp Pulse Resp B/P (MAP) Pulse Ox O2 Delivery O2 Flow Rate FiO2 07/26/17 08:04 100 40 07/26/17 06:33 70 132/75 07/26/17 04:00 98.2 15 07/25/17 19:00 Mechanical Ventilator 07/24/17 18:22 15.00 Intake and Output 07/26/17 07/26/17 07/27/17 08:00 16:00 00:00 Intake Total 7473 ml Output Total 600 ml Balance 6873 ml Result Diagram: 07/26/17 0325 07/26/17 0325 Imaging Last Impressions Chest X-Ray 07/26/17 0600 Signed Impressions: Service Date/Time: Wednesday, July 26, 2017 03:32 - CONCLUSION: Interval worsening in aeration in the left lung base Rohan Montenegro MD Head CT 07/25/17 0000 Signed Impressions: Service Date/Time: Tuesday, July 25, 2017 15:05 - CONCLUSION: Post surgical findings the left frontal region with decrease in size of left sided parenchymal hemorrhage. Surgical drain now in place. Intraventricular hemorrhage component again seen. Michel Phillips MD Objective Remarks GENERAL: 41-year-old female unresponsive on the vent orotracheally intubated SKIN: Warm and dry. Old appearing bruises on trunk and extremities including the left face HEAD: Status post left temporoparietal craniotomy with ventriculostomy placed bilaterally. Clear CSF with blood tinge rim Ecchymosis left side of face. EYES: Right pupil 4 mm left is 2 mm nonreactive ENT: Orotracheally intubated, NECK: Trachea midline. No JVD. right IJ is clean dry and intact CARDIOVASCULAR: RRR. S1, S2. No S4.. Systolic murmur grade 2 LSB. RESPIRATORY: 2 crackles right lower lobe. Symmetrical excursion. GASTROINTESTINAL: Abdomen soft, non-tender, nondistended. Hypoactive bowel sounds are appreciated MUSCULOSKELETAL: Old appearing bruises on anterior shins 1+ bilateral lower extremity edema. NEUROLOGICAL: GCS 3. Positive corneal reflex. Positive gag. Upward toes. Does not withdraw to pain. Urinary Catheter: Yes Assessment to: Continue Foster insert reason: Prolonged Immobilization Vascular Central Line Catheter: Yes Assessment to: Continue Date of Insertion: Jul 24, 2017 Line: Central Venous Catheter Side: Right Location: Internal, Jugular A/P Assessment and Plan NEURO/PSYCH: Severe left basal ganglia and thalamic hemorrhage with intraventricular extension 1.3 cm prri-hk-[id number] midline shift Severe acute encephalopathy Alcohol abuse THC -Postop day #2 left frontal temporal craniotomy with ventriculostomy replacement with evacuation of hematoma Dr. Hill - Postop day 1 right frontal wesley hole/ventriculostomy placement -Currently on mannitol 25 g IV every 8. Hold if serum osm greater than 315. Currently 327 - Keep Na above 145 in less than 155 3% saline. Currently off -Levetiracetam 500 mg IV twice a day 7 days for seizure prophylaxis -Currently on propofol at 50 mcg/kg per minute, fentanyl drip at 250 grams an hour and midazolam @ 10 milligrams an hour for sedation/analgesia while intubated for sedation and vent synchrony Currently on cisatracurium drip at 2 mcg/kg per minute to maintain train-of- four 1 out of 4 - End tidal CO2 35-40 -adjust 30-35 - Right Ventriculostomy -0 Cm H2O 28 cc clear left ventriculostomy 0 cm H2O 18 cc with tinged - Follow up CT head in 07/25 revealed interval craniotomy. Surgical drain is in place in the region of the left basal ganglia. There's been interval decrease in size of parenchymal hemorrhage in this area now measuring 4.1 x 2.5 cm compared to 5.2 x 4.8 cm. Decrease in kpcu-[id number] midline shift, now measuring 5 mm compared to 14 mm on the prior study. Persistent extensive intraventricular component of hemorrhage involving the anterior and posterior horns of lateral ventricles as well as the third ventricle and fourth ventricle. - Supplement multivitamin thiamine and folic acid and vitamin bag daily - Further recommendation per Dr. Hill -Discussed with Dr. Hill. We'll place the 9.3 [place] 45 cm Quattro intravascular temperature management catheter to maintain induce hypothermia 34 C RESP: Acute respiratory failure - ACV 20/550/5/50 - vent bundle -Albuterol/ipratropium aerosols every 6 hours scheduled and when necessary albuterol aerosols every 2 hours - Recommend weaning until neuro status improved - Chest x-ray revealed worsening aeration left lower lobe. CV: Hypertensive emergency - resolved Currently on norepinephrine drip at 6 mics grams per minute to maintain cerebral perfusion pressure greater than 65 - Normal saline IV fluids 75 ml per hour, -As needed nicardipine infusion, hydralazine 20 mg IV every 4 hours when necessary to keep SBP less than 150 diastolic blood pressure less than 90 - Sodium nitroprusside infusion if needed - 2-D echo if patient makes meaningful recovery GI: Hypoalbuminemia Start on vital 1.5 goal 50 cc an hour a currently 10 cc an hour Pantoprazole for GI prophylaxis Docusate sodium 100 twice a day, senna 8.6 mg twice a day for bowel regimen. Add Klonopin glycol 17 g twice a day and lactulose 30 cc daily : - Monitor renal function closely. Foster catheter. IV hydration as above ID: - Perioperative antibiotics per Dr. Hill - Monitor for infection Blood cultures 2, sputum today HEME: Normocytic anemia - Monitor CBC, CMP, coags ENDO: Sliding-scale insulin with Novulin R with Accu-Cheks every 6 hours to maintain euglycemia/moderate regimen FEN: Hypo-magnesium Hypophosphatemia Hypernatremia Replace electrolytes as clinically indicated per ICU electrolyte protocol 15 mmol K-Phos, 2 g mag sulfate IV 1. Recheck in a.m. PROPH: - Bilateral lower extremity SCDs. Chemical DVT prophylaxis is contraindicated due to intracranial hemorrhage. IV pantoprazole Critical Care: The total critical care time was 35 minutes. Time to perform other separately billable procedures was not included in the critical care time. Roger Spain MD Jul 26, 2017 08:22
[2017-07-26] MEDS: levETIRAcetam INJ 500 MG in SODIUM CHLORIDE 0.9% INJ 100 ML IV SCH ×2 (08:40→22:13)
[2017-07-26] MEDS: SODIUM CHLORIDE 0.9% FLUSH 10 ML FLUSH IV FLUSH SCH ×2 (08:40→19:45)
[2017-07-26] MEDS: MULTIVITAMIN INJ 10 ML, THIAMINE INJ 100 MG, FOLIC ACID INJ 1 MG in SODIUM CHLORID 0.9%... IV SCH (09:00)
[2017-07-26] MEDS ORDERED: POTASSIUM PHOSPHATE INJ 15 MMOL in SODIUM CHLORIDE 0.9% INJ 150 ML IV ONE (10:15)
[2017-07-26] MEDS: MAGNESIUM SULFATE 1 GM PREMIX 100 ML IV SCH ×2 (10:15→15:04)
[2017-07-26] MEDS ORDERED: LACTULOSE SYRUP 20 GM/30 ML CUP PO ONE (10:15)
[2017-07-26] MEDS ORDERED: CALCIUM GLUCONATE INJ 1 GM in SODIUM CHLORIDE 0.9% INJ 100 ML IV ONE (10:15)
[2017-07-26] MEDS ORDERED: RESP: ALBUTEROL 2.5 MG/3 ML NEB (PRN) INH (10:30)
[2017-07-26] MEDS: SODIUM CHLOR 0.9% 1000 ML INJ 1,000 ML IV SCH (12:10)
--- NOTE | 2017-07-26 12:23 | PD.PROCEDR ---
Procedure Note Procedure DATE: 07/26/2017 Intravascular temperature management catheter placement: Right femoral vein. Ultrasound-guided INDICATION: Targeted temperature management for intracerebral hemorrhage CONSENT Informed consent for procedure was obtained. DESCRIPTION OF THE PROCEDURE The patient was placed in supine position. The skin was cleansed with Chloraprep. Additional barrier precautions included large sterile drape, sterile gloves, sterile gown, face mask, and hat. 1 % lidocaine was used for local anesthesia. Under direct ultrasound guidance and on initial attempt, the vein was accessed with an introducer needle. The guide wire was advanced and the tract was dilated. Using Seldinger technique a 9.3 [place] 45 cm Zoll Quattro triple-lumen central venous catheter was advanced to a depth of 45 centimeters. The guide wire was removed. All ports had good return of dark venous blood and flushed easily with saline. The central line was secured with 2.0 silk. A sterile dressing with antibiotic disc was applied. ESTIMATED BLOOD LOSS: Minimal COMPLICATIONS: No apparent complications. Roger Spain MD Jul 26, 2017 12:23
[2017-07-26] MEDS ORDERED: LORazepam 2 MG/ML VIAL IV PUSH PRN (13:45)
[2017-07-26] MEDS ORDERED: busPIRone HCL 5 MG TAB NG PRN (13:45)
[2017-07-26] MEDS ORDERED: SODIUM CHLORIDE 0.9% FLUSH 10 ML FLUSH IV FLUSH PRN (13:45)
[2017-07-26] MEDS ORDERED: ACETAMINOPHEN 650 MG/20.3 ML UDC NG PRN (13:45)
[2017-07-26] MEDS ORDERED: Mix all IV Meds in NS IV SCH (13:45)
[2017-07-26] MEDS: fentaNYL DRIP 250 ML IV PRN ×2 (17:30→22:14)
[2017-07-26] MEDS: MIDAZOLAM 100 MG/100 ML INJ 100 ML IV PRN ×2 (17:30→22:58)
[2017-07-26] MEDS: POLYETHYLENE GLYCOL 17 GM PKG PO SCH (19:43)
--- NOTE | 2017-07-26 22:12 | MG ---
cc: JOSH GARCIA MD Lab No: Date: 07/26/2017 : Sex: F Race: ELECTROENCEPHALOGRAM RECORD NUMBER DATE OF 1975 INDICATION A 41-year-old history intracranial hemorrhage, sedated for increased intracranial pressure on fentanyl, Diprivan, Versed Nimbex. DESCRIPTION Slow 1-2 Hz delta activity with bursts of theta delta occurring every few seconds. Occasional spindles, 10-30 microvolts. No driving with photic stimulation. Reduced spindles in the left hemisphere. Single lead EKG showing sinus rhythm. INTERPRETATION Moderate encephalopathy. Clinical correlation. Josh Garcia MD MG/KK /9:40 PM /9:53 PM
[2017-07-27] VITALS (20 sets, daily range): BP systolic 104–134; BP diastolic 59–83; PULSE 44–82; RESP 15–20; TEMP 93–94.1; O2SAT 92–100
[2017-07-27] MEDS: SODIUM CHLOR 0.9% 1000 ML INJ 1,000 ML IV SCH (00:32)
[2017-07-27] MEDS: CHLORHEXIDINE GLUCONATE 2 % 1 PACK (2 CLOTHS) TOP SCH (00:32)
[2017-07-27] MEDS: PROPOFOL 1000 MG/100 ML INJ 100 ML IV PRN ×7 (02:36→23:35)
[2017-07-27] MEDS: RESP: ALBUTEROL 2.5 MG/IPRATROPIUM 0.5 MG NEB (SCH) NEB ×4 (03:19→20:01)
[2017-07-27 04:07] LABS: AUTOMATED NEUTROPHIL # 4.6 TH/MM3 (1.8-7.7); BASOPHIL % 0.2 % (0.0-2.0); EOSINOPHIL # 0.4 TH/MM3 (0-0.4); EOSINOPHIL % 6.6 % (0.0-4.0); HEMATOCRIT 31.3 % (35.0-46.0); HEMOGLOBIN 10.4 GM/DL (11.6-15.3); LYMPH % 5.4 % (9.0-44.0); LYMPHOCYTE # 0.3 TH/MM3 (1.0-4.8); MEAN CELL VOLUME 97.4 FL (80.0-100.0); MEAN CORPUSCULAR HEMOGLOBIN 32.3 PG (27.0-34.0); MEAN CORPUSCULAR HGB CONC 33.2 % (32.0-36.0); MEAN PLATELET VOLUME 8.4 FL (7.0-11.0); MONO % 6.3 % (0.0-8.0); MONOCYTE # 0.4 TH/MM3 (0-0.9); NEUT % 81.5 % (16.0-70.0); PLATELET COUNT 141 TH/MM3 (150-450); RED BLOOD COUNT 3.21 MIL/MM3 (4.00-5.30); RED CELL DISTRIBUTION WIDTH 13.7 % (11.6-17.2); WHITE BLOOD COUNT 5.6 TH/MM3 (4.0-11.0)
[2017-07-27 04:34] LABS: ALBUMIN 2.3 GM/DL (3.4-5.0); BICARBONATE 19.8 MEQ/L (21.0-32.0); CALCIUM 7.2 MG/DL (8.5-10.1); CALCIUM-PROTEIN CORRECTED 8.4 MG/DL (8.5-10.1); CREATININE 0.47 MG/DL (0.50-1.00); MAGNESIUM 2.3 MG/DL (1.5-2.5); PHOSPHORUS 2.5 MG/DL (2.5-4.9); TOTAL BILIRUBIN ADULT 0.2 MG/DL (0.2-1.0); TOTAL PROTEIN 4.9 GM/DL (6.4-8.2)
[2017-07-27] MEDS: CISATRACURIUM INJ 100 MG in SODIUM CHLOR 0.9% 250 ML INJ 250 ML IV PRN ×3 (04:34→20:57)
--- NOTE | 2017-07-27 04:58 | RADRPT ---
EXAM DATE/TIME: 07/27/2017 03:42 [facility] COMPARISON: CHEST SINGLE AP, July 26, 2017, 3:32. INDICATIONS : Shortness of breath, possible pulmonary disease. MEDICAL HISTORY : Hypertension. SURGICAL HISTORY : Craniotomy. ENCOUNTER: Subsequent ACUITY: 4 - 6 days PAIN SCORE: Non-responsive. LOCATION: Bilateral chest FINDINGS: Lines and tubes are present not significantly changed. Left basilar opacity is present may be due to a combination of consolidation and or pleural effusion. There is also haziness due to the perivascula r structures may represent pulmonary edema with possible mild consolidation right lung base. CONCLUSION: Left basilar opacity is present may be due to a combination of consolidation and or pleural effusion and probable mild pulmonary edema. Eduardo Casanova MD on July 27, 2017 at 4:55 Board Certified Radiologist. This report was verified electronically.
[2017-07-27] MEDS ORDERED: SODIUM BICARBONATE 8.4% INJ 50 MEQ/50 ML SYR IV PUSH ONE (05:30)
[2017-07-27] MEDS ORDERED: SODIUM BICARBONATE 8.4% INJ 50 MEQ/50 ML SYR ONE (05:32)
[2017-07-27] MEDS: fentaNYL DRIP 250 ML IV PRN ×3 (05:34→20:12)
[2017-07-27] MEDS: NOREPINEPHRINE INJ 4 MG in SODIUM CHLOR 0.9% 250 ML INJ 250 ML IV PRN ×2 (05:35→21:54)
[2017-07-27] MEDS: INSULIN NovoLIN REGULAR SUPPLEMENTAL SCALE SQ SCH ×4 (06:00→18:00)
[2017-07-27] MEDS: MANNITOL 12.5 GM/50 ML VIAL IV SCH ×3 (06:00→21:02)
[2017-07-27] MEDS: ARTIFICIAL TEARS OPTH SOLN 15 ML BTL EACH EYE SCH ×3 (06:00→22:09)
[2017-07-27] MEDS: MIDAZOLAM 100 MG/100 ML INJ 100 ML IV PRN ×4 (06:47→21:53)
[2017-07-27] MEDS: CHLORHEXIDINE 0.12% (ORAL KIT) 15 ML CUP MT SCH ×2 (07:05→19:58)
[2017-07-27] MEDS ORDERED: FUROSEMIDE 20 MG/2 ML VIAL IV PUSH ONE (07:45)
--- NOTE | 2017-07-27 07:54 | HHI.CCPN ---
Subjective Remarks/Hospital Course Patient is a 41-year-old female, with possible history of hypertension , alcohol abuse who was brought to the [facility] emergency department as a stroke alert. Apparently EMS was called after patient was found severely altered by with weakness on the right side. Initial blood pressure was 250s over 150. Patient started to seize and 2 mg Ativan given. Attempted intubation failed due to clenched jaw intubation. EMS gave lidocaine preparation for intubation. GCS 3 at scene and in ED. 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 Her initial BP in ED was 284/170. Patient was intubated by Dr. Rangel and was placed on propofol infusion, Cardene was initiated for blood pressure control. A stat CT of the head showed more than 5 cm intraparenchymal hemorrhage overlying left parietal left thalamus and left mesencephalon, with 1.3 cm left- to-right midline shift. Her intracranial hemorrhage most likely secondary to hypertensive emergency and not trauma or assualt related I evaluated the patient immediately in the emergency department. On my exam patient is comatose on the vent as received propofol boluses and currently is on nicardipine 5 mg per hour for blood pressure control. Right pupil is 5 mm left is 6 both and nonreactive . Patient shows extensive posturing to painful stimuli. Patient has received 25 g of mannitol, additional 12.5 mg ordered by neurosurgeon. Current SBP 270, I instructed the RN immediately give 50 mg propofol bolus, 100 g fentanyl bolus, and increase nicardipine infusion to 20 mg per hour. I also ordered as needed hydralazine and also sodium nitroprusside infusion in case we cannot control her blood pressure adequately. Dr. Hill arrived at the ED and the case was extensively discussed with him. The patient has suffered a devastating intracranial hemorrhage with poor chance of survival, however due to relatively young age Dr. Hill has offered significant for evacuation of the bleed. Prognosis remained poor even with surgery 07/25: Ventriculostomy clotted off overnight. Will be replaced as AM. Currently on midazolam, propofol and fentanyl drips for sedation. Last ICP was 7-11 per RN. Initiate tube feeding and bowel regimen today. 07/26: Patient continues with bilateral ventriculostomies. Overnight received 1 dose of hypertonic saline and potassium. ICP is currently 25. Started on cisatracurium remain elevated. Discussed with Dr. Hill. We will place cooling catheter. Subjective 07/27: ICP is currently at 16. Ventilator adjusted. Remains on maximum sedation with propofol, fentanyl, midazolam and paralyzed with cisatracurium and intravascularly cooled to 34C. Remains on trickle feeds. No bowel movement. Objective Vital Signs Date Time Temp Pulse Resp B/P (MAP) Pulse Ox O2 Delivery O2 Flow Rate FiO2 07/27/17 07:00 100 Mechanical Ventilator 40 07/27/17 06:00 74 07/27/17 05:35 122/71 07/27/17 04:00 94.1 15 07/24/17 18:22 15.00 Intake and Output 07/27/17 07/27/17 07/28/17 08:00 16:00 00:00 Intake Total 1828 ml Output Total 728 ml Balance 1100 ml Result Diagram: 07/27/17 0400 07/27/17 0400 Imaging Last Impressions Chest X-Ray 07/27/17 0600 Signed Impressions: Service Date/Time: Thursday, July 27, 2017 03:42 - CONCLUSION: Left basilar opacity is present may be due to a combination of consolidation and or pleural effusion and probable mild pulmonary edema. Eduardo Casanova MD Head CT 07/25/17 0000 Signed Impressions: Service Date/Time: Tuesday, July 25, 2017 15:05 - CONCLUSION: Post surgical findings the left frontal region with decrease in size of left sided parenchymal hemorrhage. Surgical drain now in place. Intraventricular hemorrhage component again seen. Michel Phillips MD Objective Remarks GENERAL: 41-year-old female unresponsive on the vent orotracheally intubated SKIN: Warm and dry. Old appearing bruises on trunk and extremities including the left face HEAD: Status post left temporoparietal craniotomy with ventriculostomy placed bilaterally. Clear CSF with blood tinge rim Ecchymosis left side of face. EYES: Right pupil 3 mm and reactive left is 4 mm and very sluggish ENT: Orotracheally intubated, NECK: Trachea midline. No JVD. right IJ is clean dry and intact CARDIOVASCULAR: RRR. S1, S2. No S4.. Systolic murmur grade 2 LSB. RESPIRATORY: Diffuse crackles left lower lobe. Symmetrical excursion. GASTROINTESTINAL: Abdomen soft, non-tender, nondistended. Hypoactive bowel sounds are appreciated MUSCULOSKELETAL: Old appearing bruises on anterior shins 1+ bilateral upper and lower extremity edema. Quattro catheter right femoral is clean dry and intact NEUROLOGICAL: GCS 3. Pupils as above. No gag. Currently on cisatracurium drip. Urinary Catheter: Yes Assessment to: Continue Foster insert reason: Prolonged Immobilization Vascular Central Line Catheter: Yes Assessment to: Continue Date of Insertion: Jul 24, 2017 Line: Central Venous Catheter Side: Right Location: Internal, Jugular A/P Assessment and Plan NEURO/PSYCH: Severe left basal ganglia and thalamic hemorrhage with intraventricular extension 1.3 cm [id number] midline shift Severe acute encephalopathy Alcohol abuse THC -Postop day #3 left frontal temporal craniotomy with ventriculostomy replacement with evacuation of hematoma Dr. Hill - Postop day 1 right frontal wesley hole/ventriculostomy placement -Currently on mannitol 25 g IV every 8. Hold if serum osm greater than 315. Currently 322 - Keep Na above 145 in less than 155 3% saline. Currently off as sodium is 157 -Levetiracetam 500 mg IV twice a day 7 days for seizure prophylaxis -Currently on propofol at 70 mcg/kg per minute, fentanyl drip at 350 grams an hour and midazolam @ 12 milligrams an hour for sedation/analgesia while intubated for sedation and vent synchrony Currently on cisatracurium drip at 2 mcg/kg per minute to maintain train-of- four 1 out of 4 - End tidal CO2 35-40 -adjust 30-35 for elevated ICPs - Right Ventriculostomy -0 Cm H2O 10 cc ss left ventriculostomy 0 cm H2O 68 cc with ss - Follow up CT head in 07/25 revealed interval craniotomy. Surgical drain is in place in the region of the left basal ganglia. There's been interval decrease in size of parenchymal hemorrhage in this area now measuring 4.1 x 2.5 cm compared to 5.2 x 4.8 cm. Decrease in obuj-ml-vasaj midline shift, now measuring 5 mm compared to 14 mm on the prior study. Persistent extensive intraventricular component of hemorrhage involving the anterior and posterior horns of lateral ventricles as well as the third ventricle and fourth ventricle. - Supplement multivitamin thiamine and folic acid and multivitamin daily - Further recommendation per Dr. Hill - 07/26 - status post 9.3 Serbian 45 cm Quattro intravascular temperature management catheter to maintain induce hypothermia 34C RESP: Acute respiratory failure - PRTCV 20/550/1.2/5/40 - vent bundle -Albuterol/ipratropium aerosols every 6 hours scheduled and when necessary albuterol aerosols every 2 hours as needed dyspnea No spontaneous breathing trials while on continuous paralytic - Chest x-ray 07/27 revealed worsening aeration left lower lobe and possible small pleural effusion. CV: Hypertensive emergency - resolved Currently on norepinephrine drip at 3 mics grams per minute to maintain cerebral perfusion pressure greater than 65 - Normal saline IV fluids 75 ml per hour to be discontinued today -As needed nicardipine infusion, hydralazine 20 mg IV every 4 hours when necessary to keep SBP less than 150 diastolic blood pressure less than 90 - Sodium nitroprusside infusion if needed - 2-D echo if patient makes meaningful recovery GI: Hypoalbuminemia Start on vital 1.5 goal 45 cc an hour at currently 10 cc an hour High residuals start metoclopramide 5 mill grams IV every 8 hours Byresolved 30 mg daily for GI prophylaxis Docusate sodium 100 twice a day, senna 8.6 mg twice a day for bowel regimen. Add polyethylene glycol 17 g twice a day and lactulose 30 cc twice daily : - Monitor renal function closely. Foster catheter. IV hydration as above ID: - Perioperative antibiotics per Dr. Hill - Monitor for infection Blood cultures 2, sputum 07/26 pending HEME: Normocytic anemia Thrombocytopenia - Monitor CBC, CMP, coags ENDO: Sliding-scale insulin with Novulin R with Accu-Cheks every 6 hours to maintain euglycemia/moderate regimen FEN: Hypernatremia Replace electrolytes as clinically indicated per ICU electrolyte protocol PROPH: - Bilateral lower extremity SCDs. Pharmacological DVT prophylaxis is contraindicated due to intracranial hemorrhage. Lansoprazole Critical Care: The total critical care time was 35 minutes. Time to perform other separately billable procedures was not included in the critical care time. Roger Spain MD Jul 27, 2017 07:54
[2017-07-27] MEDS: levETIRAcetam INJ 500 MG in SODIUM CHLORIDE 0.9% INJ 100 ML IV SCH ×2 (08:12→22:09)
[2017-07-27] MEDS: SENNOSIDES SYRUP 8.8 MG/5 ML CUP NG SCH ×2 (08:12→19:58)
[2017-07-27] MEDS: LACTULOSE SYRUP 20 GM/30 ML CUP NG SCH ×2 (08:12→19:58)
[2017-07-27] MEDS: FOLIC ACID 1 MG TAB PO SCH (08:12)
[2017-07-27] MEDS: LANSOPRAZOLE SOLUTAB 30 MG TAB NG SCH (08:12)
[2017-07-27] MEDS: THIAMINE HCL 100 MG TAB PO SCH (08:12)
[2017-07-27] MEDS: POLYETHYLENE GLYCOL 17 GM PKG PO SCH ×2 (08:13→19:58)
[2017-07-27] MEDS: SODIUM CHLORIDE 0.9% FLUSH 10 ML FLUSH IV FLUSH SCH ×2 (08:13→19:58)
[2017-07-27] MEDS: MULTIVITAMIN INJ 10 ML, THIAMINE INJ 100 MG, FOLIC ACID INJ 1 MG in SODIUM CHLORID 0.9%... IV SCH (08:13)
[2017-07-27] MEDS ORDERED: METHYLNALTREXONE BROMIDE 12 MG/0.6 ML VIAL SQ ONE (08:45)
[2017-07-27] MEDS ORDERED: LACTULOSE SYRUP 20 GM/30 ML CUP PO SCH (09:00)
--- NOTE | 2017-07-27 09:32 | HHI.NSPN ---
History Chief Complaint: ICH. Interval History 41-year-old female who was found unresponsive with vomit and agonal respirations. EMS was summoned and brought the patient to the [facility] Emergency Room. EMS was unable to intubate her and she was intubated on arrival to the emergency room. Edy coma Score was 3 at the scene and after intubation resuscitation improved to 4 with dilated pupils, left larger than right. 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 That is when he called the EMS. She does have a history of hypertension but has not been taking any medications and does not check her blood pressure regularly. CT scan of the head obtained reveals a large left basal ganglia hemorrhage that extends into the thalamus as well as the lateral ventricle with about a centimeter [id number] midline shift. The hematoma measures about 5.8 cm in dimension. Her initial blood pressure was 270/136 and she has been placed on a Cardene drip along with Diprivan and has received mannitol also. 07/25/17: Pt sedated on Diprivan, Fentanyl, and Versed drips. Left pupil 3mm right 2mm NR bilaterally. No response to pain in upper chest. Ventriculostomy drain in place with blood, no waveform. 07/26/17: Pt heavily sedated on Diprivan, Fentanyl, and Versed drips. Left pupil 3mm right 2mm NR bilaterally. No response to pain. Ventriculostomy in place bilaterally. Right ventriculostomy drain with good ICP waveform. Pt requiring prn medications in addition to drips listed to keep ICP less than 20. 07/27/17: ICP currently 19 on Diprivan, fentanyl, Versed, Nimbex and hypothermia along with when necessary hypertonic saline. Bilateral ventriculostomies draining well. Exam Results Vital Signs Date Time Temp Pulse Resp B/P (MAP) Pulse Ox O2 Delivery O2 Flow Rate FiO2 12/25/17 08:00 93.2 70 20 117/67 (84) 100 07/27/17 08:00 40 07/27/17 07:00 Mechanical Ventilator 07/24/17 18:22 15.00 Intake and Output 07/27/17 07/27/17 07/28/17 08:00 16:00 00:00 Intake Total 1828 ml 975 ml Output Total 728 ml Balance 1100 ml 975 ml Physical Examination General: Pt in ICU heavily sedated with Diprivan, Fentanyl, and Versed drips. Eyes: Left pupil 3mm NR right 2mm NR. Sclera anicteric. Resp: Intubated. Heart: NSR no murmurs Abd: Soft positive bs Skin: Incision clean and dry. SCDs in place. Muscle: Not following for muscle testing. No response to pain in upper chest. Neuro: Pt sedated on Diprivan, Fentanyl, and Versed drips. Not opening eyes. Left pupil 3mm right pupil 2mm NR bilaterally. Not following commands. Medical Decision Making Impression and Plan 41-year-old female with a large left basal ganglia thalamic hemorrhage with intraventricular extension. Has post a left craniotomy for hemorrhage evacuation and bilateral ventriculostomy placement. Requiring extensive therapeutic measures to maintain ICP under control. Exam overall is poor but she is also heavily sedated. Continue with current management. Austin Hill MD Jul 27, 2017 09:32
--- NOTE | 2017-07-27 09:40 | EKG ---
Date Performed: 07/24/2017 Time Performed: 22:24:12 PTAGE: 41 years EKG: Sinus rhythm ANTEROSEPTAL MYOCARDIAL INFARCTION , PROBABLY RECENT NO PREVIOUS TRACING DOCTOR: Mercedes Ramos Interpretating Date/Time 07/27/2017 09:39:14
[2017-07-27] MEDS: METOCLOPRAMIDE HCL 10 MG/2 ML VIAL IV PUSH SCH ×2 (13:15→22:10)
[2017-07-27] MEDS ORDERED: 3% SALINE INJ 500 ML IV SCH (17:30)
[2017-07-27 18:18] LABS: MAGNESIUM 1.8 MG/DL (1.5-2.5)
[2017-07-27] MEDS: POTASSIUM CHLOR 40 MEQ PREMIX 100 ML IV PRN ×2 (18:28→23:40)
[2017-07-27] MEDS ORDERED: MANNITOL 12.5 GM/50 ML VIAL IV ONE (21:00)
[2017-07-28] VITALS (19 sets, daily range): BP systolic 118–135; BP diastolic 66–77; PULSE 72–88; RESP 18–20; TEMP 93–93.2; O2SAT 92–100
[2017-07-28] MEDS: CISATRACURIUM INJ 100 MG in SODIUM CHLOR 0.9% 250 ML INJ 250 ML IV PRN ×4 (01:21→22:39)
[2017-07-28] MEDS: NOREPINEPHRINE INJ 4 MG in SODIUM CHLOR 0.9% 250 ML INJ 250 ML IV PRN ×5 (01:22→22:40)
[2017-07-28] MEDS: PROPOFOL 1000 MG/100 ML INJ 100 ML IV PRN ×8 (02:49→23:10)
[2017-07-28] MEDS: fentaNYL DRIP 250 ML IV PRN ×4 (03:03→23:11)
[2017-07-28] MEDS: CHLORHEXIDINE GLUCONATE 2 % 1 PACK (2 CLOTHS) TOP SCH (03:06)
[2017-07-28] MEDS: RESP: ALBUTEROL 2.5 MG/IPRATROPIUM 0.5 MG NEB (SCH) NEB ×5 (03:18→19:52)
[2017-07-28 04:29] LABS: AUTOMATED NEUTROPHIL # 3.7 TH/MM3 (1.8-7.7); BASOPHIL % 0.2 % (0.0-2.0); EOSINOPHIL # 0.1 TH/MM3 (0-0.4); EOSINOPHIL % 2.7 % (0.0-4.0); HEMATOCRIT 32.9 % (35.0-46.0); HEMOGLOBIN 11.1 GM/DL (11.6-15.3); LYMPH % 6.9 % (9.0-44.0); LYMPHOCYTE # 0.3 TH/MM3 (1.0-4.8); MEAN CELL VOLUME 95.5 FL (80.0-100.0); MEAN CORPUSCULAR HEMOGLOBIN 32.3 PG (27.0-34.0); MEAN CORPUSCULAR HGB CONC 33.8 % (32.0-36.0); MEAN PLATELET VOLUME 7.9 FL (7.0-11.0); MONO % 6.6 % (0.0-8.0); MONOCYTE # 0.3 TH/MM3 (0-0.9); NEUT % 83.6 % (16.0-70.0); PLATELET COUNT 152 TH/MM3 (150-450); RED BLOOD COUNT 3.45 MIL/MM3 (4.00-5.30); RED CELL DISTRIBUTION WIDTH 13.2 % (11.6-17.2); WHITE BLOOD COUNT 4.4 TH/MM3 (4.0-11.0)
[2017-07-28] MEDS: MIDAZOLAM 100 MG/100 ML INJ 100 ML IV PRN ×3 (04:43→20:39)
[2017-07-28 04:54] LABS: ALBUMIN 2.2 GM/DL (3.4-5.0); BICARBONATE 20.5 MEQ/L (21.0-32.0); CALCIUM 7.3 MG/DL (8.5-10.1); CALCIUM-PROTEIN CORRECTED 8.4 MG/DL (8.5-10.1); CREATININE 0.51 MG/DL (0.50-1.00); MAGNESIUM 1.8 MG/DL (1.5-2.5); PHOSPHORUS 1.7 MG/DL (2.5-4.9); TOTAL BILIRUBIN ADULT 0.4 MG/DL (0.2-1.0); TOTAL PROTEIN 5.1 GM/DL (6.4-8.2)
[2017-07-28] MEDS: MANNITOL 12.5 GM/50 ML VIAL IV SCH ×3 (05:06→22:00)
[2017-07-28] MEDS: INSULIN NovoLIN REGULAR SUPPLEMENTAL SCALE SQ SCH ×5 (05:13→23:11)
[2017-07-28] MEDS: ARTIFICIAL TEARS OPTH SOLN 15 ML BTL EACH EYE SCH ×3 (06:03→21:09)
[2017-07-28] MEDS: METOCLOPRAMIDE HCL 10 MG/2 ML VIAL IV PUSH SCH ×3 (06:03→21:09)
[2017-07-28] MEDS ORDERED: SODIUM BICARBONATE 8.4% INJ 50 MEQ/50 ML SYR IV PUSH ONE (06:15)
[2017-07-28] MEDS: MAGNESIUM SULFATE 1 GM PREMIX 100 ML IV SCH ×2 (06:21→07:42)
[2017-07-28] MEDS ORDERED: POTASSIUM CHLOR 20 MEQ PREMIX 100 ML IV ONE (06:30)
[2017-07-28] MEDS: POLYETHYLENE GLYCOL 17 GM PKG PO SCH ×2 (07:42→20:01)
[2017-07-28] MEDS: ARTIFICIAL TEARS OPTH OINT 3.5 APPLIC/3.5 GM TUBO EACH EYE PRN (07:42)
[2017-07-28] MEDS: SENNOSIDES SYRUP 8.8 MG/5 ML CUP NG SCH ×2 (07:42→20:01)
[2017-07-28] MEDS: THIAMINE HCL 100 MG TAB PO SCH (07:43)
[2017-07-28] MEDS: LANSOPRAZOLE SOLUTAB 30 MG TAB NG SCH (07:43)
[2017-07-28] MEDS: CHLORHEXIDINE 0.12% (ORAL KIT) 15 ML CUP MT SCH ×2 (07:43→20:02)
[2017-07-28] MEDS: SODIUM CHLORIDE 0.9% FLUSH 10 ML FLUSH IV FLUSH SCH ×2 (07:43→20:01)
[2017-07-28] MEDS: FOLIC ACID 1 MG TAB PO SCH (07:43)
[2017-07-28] MEDS ORDERED: GLYCERIN ADULT 2 GM SUPP RECTAL ONE (07:45)
--- NOTE | 2017-07-28 07:47 | HHI.CCPN ---
Subjective Remarks/Hospital Course Patient is a 41-year-old female, with possible history of hypertension , alcohol abuse who was brought to the [facility] emergency department as a stroke alert. Apparently EMS was called after patient was found severely altered by with weakness on the right side. Initial blood pressure was 250s over 150. Patient started to seize and 2 mg Ativan given. Attempted intubation failed due to clenched jaw intubation. EMS gave lidocaine preparation for intubation. GCS 3 at scene and in ED. 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 Her initial BP in ED was 284/170. Patient was intubated by Dr. Rangel and was placed on propofol infusion, Cardene was initiated for blood pressure control. A stat CT of the head showed more than 5 cm intraparenchymal hemorrhage overlying left parietal left thalamus and left mesencephalon, with 1.3 cm left- to-right midline shift. Her intracranial hemorrhage most likely secondary to hypertensive emergency and not trauma or assualt related I evaluated the patient immediately in the emergency department. On my exam patient is comatose on the vent as received propofol boluses and currently is on nicardipine 5 mg per hour for blood pressure control. Right pupil is 5 mm left is 6 both and nonreactive . Patient shows extensive posturing to painful stimuli. Patient has received 25 g of mannitol, additional 12.5 mg ordered by neurosurgeon. Current SBP 270, I instructed the RN immediately give 50 mg propofol bolus, 100 g fentanyl bolus, and increase nicardipine infusion to 20 mg per hour. I also ordered as needed hydralazine and also sodium nitroprusside infusion in case we cannot control her blood pressure adequately. Dr. Hill arrived at the ED and the case was extensively discussed with him. The patient has suffered a devastating intracranial hemorrhage with poor chance of survival, however due to relatively young age Dr. Hill has offered significant for evacuation of the bleed. Prognosis remained poor even with surgery 07/25: Ventriculostomy clotted off overnight. Will be replaced as AM. Currently on midazolam, propofol and fentanyl drips for sedation. Last ICP was 7-11 per RN. Initiate tube feeding and bowel regimen today. 07/26: Patient continues with bilateral ventriculostomies. Overnight received 1 dose of hypertonic saline and potassium. ICP is currently 25. Started on cisatracurium remain elevated. Discussed with Dr. Hlil. We will place cooling catheter. 07/27: ICP is currently at 16. Ventilator adjusted. Remains on maximum sedation with propofol, fentanyl, midazolam and paralyzed with cisatracurium and intravascularly cooled to 34C. Remains on trickle feeds. No bowel movement. Subjective 07/28: ICP is currently at 13. Received 1 dose of metal overnight due to elevated ICP around 30. Ventilator adjusted for end tidal CO2. Not tolerating tube feeding. Increasing metoclopramide 10 mg IV every 8 hours. Remains paralyzed and involving a intravascular cooling device for targeted temperature management Objective Vital Signs Date Time Temp Pulse Resp B/P (MAP) Pulse Ox O2 Delivery O2 Flow Rate FiO2 07/28/17 07:27 95 40 07/28/17 07:00 Mechanical Ventilator 07/28/17 06:00 83 07/28/17 05:54 121/67 07/28/17 04:00 93.2 20 07/24/17 18:22 15.00 Intake and Output 07/28/17 07/28/17 07/29/17 08:00 16:00 00:00 Intake Total 3544 ml Output Total 750 ml Balance 2794 ml Result Diagram: 07/28/17 0409 07/28/17 0409 Imaging Last Impressions Chest X-Ray 07/27/17 0600 Signed Impressions: Service Date/Time: Thursday, July 27, 2017 03:42 - CONCLUSION: Left basilar opacity is present may be due to a combination of consolidation and or pleural effusion and probable mild pulmonary edema. Eduardo Casanova MD Head CT 07/25/17 0000 Signed Impressions: Service Date/Time: Tuesday, July 25, 2017 15:05 - CONCLUSION: Post surgical findings the left frontal region with decrease in size of left sided parenchymal hemorrhage. Surgical drain now in place. Intraventricular hemorrhage component again seen. Michel Phillips MD Objective Remarks GENERAL: 41-year-old female unresponsive on the vent orotracheally intubated SKIN: Cool and dry. Evolving bruises on trunk and extremities including the left face HEAD: Status post left temporoparietal craniotomy with ventriculostomy placed bilaterally. Serosanguineous CSF clearing. EYES: Right pupil 2 mm and reactive left is 3-4 mm and very sluggish ENT: Orotracheally intubated, NECK: Trachea midline. No JVD. right IJ is clean dry and intact CARDIOVASCULAR: RRR. S1, S2. No S4.. Systolic murmur grade 2 LSB. RESPIRATORY: Diffuse crackles left lower lobe. Symmetrical excursion. GASTROINTESTINAL: Abdomen soft, non-tender, nondistended. Hypoactive bowel sounds are appreciated MUSCULOSKELETAL: Old appearing bruises on anterior pretibial regions. 1+ bilateral upper and lower extremity edema. Quattro catheter right femoral is clean dry and intact NEUROLOGICAL: GCS 3. Pupils as above. No gag. Currently on cisatracurium drip. Urinary Catheter: Yes Assessment to: Continue Foster insert reason: Prolonged Immobilization Vascular Central Line Catheter: Yes Assessment to: Continue Date of Insertion: Jul 24, 2017 Line: Central Venous Catheter Side: Right Location: Internal, Jugular A/P Assessment and Plan NEURO/PSYCH: Severe left basal ganglia and thalamic hemorrhage with intraventricular extension 1.3 cm [id number] midline shift Severe acute encephalopathy Alcohol abuse THC -Postop day #4 left frontal temporal craniotomy with ventriculostomy replacement with evacuation of hematoma Dr. Hill - Postop day #2 right frontal wesley hole/ventriculostomy placement -Currently on mannitol 25 g IV every 8. Hold if serum osm greater than 315. Currently 320 - Keep Na above 145 in less than 155 3% saline. Currently off as sodium is 161 -Levetiracetam 500 mg IV twice a day 7 days for seizure prophylaxis -Currently on propofol at 70 mcg/kg per minute, fentanyl drip at 350 grams an hour and midazolam @ 12 milligrams an hour for sedation/analgesia while intubated for sedation and vent synchrony Currently on cisatracurium drip at 4 mcg/kg per minute to maintain train-of- four 1 out of 4 - End tidal CO2 35-40 -adjust 30-35 for elevated ICPs - Right Ventriculostomy -0 Cm H2O 46 cc ss left ventriculostomy 0 cm H2O 43 cc with ss - Follow up CT head in 07/25 revealed interval craniotomy. Surgical drain is in place in the region of the left basal ganglia. There's been interval decrease in size of parenchymal hemorrhage in this area now measuring 4.1 x 2.5 cm compared to 5.2 x 4.8 cm. Decrease in peeg-oe-wjpup midline shift, now measuring 5 mm compared to 14 mm on the prior study. Persistent extensive intraventricular component of hemorrhage involving the anterior and posterior horns of lateral ventricles as well as the third ventricle and fourth ventricle. - Supplement multivitamin thiamine and folic acid and multivitamin daily - Further recommendation per Dr. Hill - 07/26 - status post 9.3 Burkinan 45 cm Quattro intravascular temperature management catheter to maintain induce hypothermia 34C RESP: Acute respiratory failure - PRTC 20/550/1.05//40 - vent bundle -Albuterol/ipratropium aerosols every 6 hours scheduled and when necessary albuterol aerosols every 2 hours as needed dyspnea No spontaneous breathing trials while on continuous paralytic - Chest x-ray 07/27 revealed worsening aeration left lower lobe and possible small pleural effusion. CV: Hypertensive emergency - resolved Currently on norepinephrine drip at 12 mics grams per minute to maintain cerebral perfusion pressure greater than 65 - As needed nicardipine infusion, hydralazine 20 mg IV every 4 hours when necessary to keep SBP less than 150 diastolic blood pressure less than 90 - 2-D echo if patient makes meaningful recovery GI: Hypoalbuminemia Start on vital 1.5 goal 45 cc an hour at currently 10 cc an hour High residuals start metoclopramide 10 mill grams IV every 8 hours Lansoprazole 30 mg daily for GI prophylaxis Docusate sodium 100 twice a day, senna 8.6 mg twice a day for bowel regimen. Add polyethylene glycol 17 g twice a day and lactulose 30 cc 4 times daily. Glycerin suppository 1 today. Methylnaltrexone 12 mg subcutaneous 1 today. Check abdominal x-ray. : - Monitor renal function closely. Foster catheter. IV hydration as above ID: - Perioperative antibiotics per Dr. Hill - Monitor for infection Blood cultures 2, sputum 07/26 no growth to date HEME: Normocytic anemia Thrombocytopenia - Monitor CBC, CMP, coags ENDO: Sliding-scale insulin with Novulin R with Accu-Cheks every 6 hours to maintain euglycemia/moderate regimen FEN: Hypernatremia Hypo-potassium Hypophosphatemia Hypo-magnesium Replace electrolytes as clinically indicated per ICU electrolyte protocol Receiving 30 mmol K-Phos, 20 mEq KCl and 2 g mag sulfate. Recheck at 1800 PROPH: - Bilateral lower extremity SCDs. Pharmacological DVT prophylaxis is contraindicated due to intracranial hemorrhage. Lansoprazole for GI prophylaxis Critical Care: The total critical care time was 35 minutes. Time to perform other separately billable procedures was not included in the critical care time. Roger Spain MD Jul 28, 2017 07:47
[2017-07-28] MEDS ORDERED: FUROSEMIDE 20 MG/2 ML VIAL IV PUSH ONE (08:00)
[2017-07-28] MEDS ORDERED: METHYLNALTREXONE BROMIDE 12 MG/0.6 ML VIAL SQ ONE (08:00)
[2017-07-28] MEDS: levETIRAcetam INJ 500 MG in SODIUM CHLORIDE 0.9% INJ 100 ML IV SCH ×2 (09:20→21:08)
[2017-07-28] MEDS: MULTIVITAMIN INJ 10 ML, THIAMINE INJ 100 MG, FOLIC ACID INJ 1 MG in SODIUM CHLORID 0.9%... IV SCH (09:23)
--- NOTE | 2017-07-28 09:58 | HHI.NSPN ---
(Lawrence Borja) History Chief Complaint: ICH. (Lawrence Borja) Interval History 41-year-old female who was found unresponsive with vomit and agonal respirations. EMS was summoned and brought the patient to the [facility] Emergency Room. EMS was unable to intubate her and she was intubated on arrival to the emergency room. [place] coma Score was 3 at the scene and after intubation resuscitation improved to 4 with dilated pupils, left larger than right. 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 That is when he called the EMS. She does have a history of hypertension but has not been taking any medications and does not check her blood pressure regularly. CT scan of the head obtained reveals a large left basal ganglia hemorrhage that extends into the thalamus as well as the lateral ventricle with about a centimeter [id number] midline shift. The hematoma measures about 5.8 cm in dimension. Her initial blood pressure was 270/136 and she has been placed on a Cardene drip along with Diprivan and has received mannitol also. 07/25/17: Pt sedated on Diprivan, Fentanyl, and Versed drips. Left pupil 3mm right 2mm NR bilaterally. No response to pain in upper chest. Ventriculostomy drain in place with blood, no waveform. 07/26/17: Pt heavily sedated on Diprivan, Fentanyl, and Versed drips. Left pupil 3mm right 2mm NR bilaterally. No response to pain. Ventriculostomy in place bilaterally. Right ventriculostomy drain with good ICP waveform. Pt requiring prn medications in addition to drips listed to keep ICP less than 20. 07/28/17: Pt heavily sedated on Diprivan, Fentanyl, Versed and Nimbex drips. ICPs currently controlled at 12. Left pupil 4mm NR, right 2mm NR. Bilateral ventriculotomy drains in place draining blood tinges CSF. (Lawrence Borja) System Review Comments Not able to obtain given level of alertness. (Lawrence Borja) Exam Results Vital Signs Date Time Temp Pulse Resp B/P (MAP) Pulse Ox O2 Delivery O2 Flow Rate FiO2 07/28/17 08:00 93.2 82 20 124/68 (86) 96 07/28/17 08:00 40 07/28/17 07:00 Mechanical Ventilator 07/24/17 18:22 15.00 Intake and Output 07/28/17 07/28/17 07/29/17 08:00 16:00 00:00 Intake Total 3844 ml 100 ml Output Total 750 ml Balance 3094 ml 100 ml (Lawrence Borja) Physical Examination General: Pt in ICU heavily sedated with Diprivan, Fentanyl, Versed, and Nimbex drips. Eyes: Left pupil 3mm NR right 2mm NR. Sclera anicteric. Resp: Intubated. PRVC A/C rate 20. Peep 5. FiO2 40%. CTA bilaterally. Heart: NSR no murmurs Abd: Soft positive bs Skin: Incision clean and dry. SCDs in place. Muscle: Not following for muscle testing. No response to pain in upper chest. Neuro: Pt sedated on Diprivan, Fentanyl, Versed and Nimbex drips. Not opening eyes. Left pupil 4mm right pupil 2mm NR bilaterally. Not following commands. Bilateral ventriculostomy drains in place at 0cmH20 draining blood tinged CSF. ICP 12. (Lawrence Borja) Lab, Micro, Other Results Last Impressions Chest X-Ray 07/27/17 0600 Signed Impressions: Service Date/Time: Thursday, July 27, 2017 03:42 - CONCLUSION: Left basilar opacity is present may be due to a combination of consolidation and or pleural effusion and probable mild pulmonary edema. Eduardo Casanova MD Head CT 07/25/17 0000 Signed Impressions: Service Date/Time: Tuesday, July 25, 2017 15:05 - CONCLUSION: Post surgical findings the left frontal region with decrease in size of left sided parenchymal hemorrhage. Surgical drain now in place. Intraventricular hemorrhage component again seen. Michel Phillips MD 07/28/17 07/28/1707/29/17 15:00 23:00 07:00 Intake Total 3844 ml Output Total 750 ml Balance 3094 ml Intake IV Total 3791 ml Tube Feeding 53 ml Output Urine Total 750 ml (Lawrence Borja) Medical Decision Making Impression and Plan A: 41 y/o FM with large left basal ganglia / thalamic hemorrhage with extension into the ventricle and associated mass effect and midline shift with very poor neurologic examination and consistent with a transtentorial herniation. 2. Unregulated hypertension, which is likely the source of the current bleed. 3. Alcohol abuse. PLAN: Continue with close Neuro checks. Continue with critical care. Discussed with RN. Updated daughter at bedside. (Lawrence Borja) Attending Statement The exam, history, and the medical decision-making described in the above note were completed with the assistance of the mid-level provider. I reviewed and agree with the findings presented. I attest that I had a [id number] encounter with the patient on the same day, and personally performed and documented my assessment and findings in the medical record. ICPs fluctuant anywhere from teens to 120s 30s currently around 18 mmHg. She is on maximal medical support including hypothermia, Diprivan, fentanyl, Versed, muscle paralyzation drips along with when necessary hypertonic saline and mannitol with vasopressor support. Her condition is very critical with overall poor prognosis. Updated family at bedside and discussed with nursing staff. (Austin Hill MD) Lawrence Borja Jul 28, 2017 09:58 Austin Hill MD Jul 28, 2017 14:02
[2017-07-28] MEDS: LACTULOSE SYRUP 20 GM/30 ML CUP NG SCH ×3 (13:40→23:11)
[2017-07-28] MEDS: DEXTROSE 50% IN WATER 50 ML VIAL(D50) IV PUSH PRN (17:21)
--- NOTE | 2017-07-28 17:30 | EKG ---
Date Performed: 07/27/2017 Time Performed: 17:37:34 PTAGE: 41 years EKG: Sinus arrhythmia. Prolonged QT interval Poor R wave progression - probable normal variant A nterolateral T wave changes may be due to myocardial ischemia Abnormal ECG Compared to PREVIOUS TRACING , there is lateral loss of R-wave progression, clinical correlation for lateral [place], age undetermined. PREVIOUS TRACIN07/24/2017 22.24 DOCTOR: Carol Wells Interpretating Date/Time 07/28/2017 17:29:43
[2017-07-28 19:41] LABS: MAGNESIUM 1.8 MG/DL (1.5-2.5); PHOSPHORUS 2.6 MG/DL (2.5-4.9)
[2017-07-28] MEDS ORDERED: MAGNESIUM SULFATE INJ 4 GM in SODIUM CHLORIDE 0.9% INJ 100 ML IV ONE (21:00)
[2017-07-28] MEDS: POTASSIUM CHLOR 20 MEQ PREMIX 100 ML IV PRN (23:30)
[2017-07-28] MEDS ORDERED: DEXTROSE (ADULT) 31 GM GEL TUBE PO PRN (23:45)
[2017-07-29] VITALS (20 sets, daily range): BP systolic 105–132; BP diastolic 55–72; PULSE 71–81; RESP 20–22; TEMP 92.8–95.7; O2SAT 94–100
[2017-07-29] MEDS: ARTIFICIAL TEARS OPTH OINT 3.5 APPLIC/3.5 GM TUBO EACH EYE PRN (00:01)
[2017-07-29] MEDS: POTASSIUM CHLOR 20 MEQ PREMIX 100 ML IV PRN ×3 (00:48→05:11)
[2017-07-29] MEDS: PROPOFOL 1000 MG/100 ML INJ 100 ML IV PRN ×6 (02:52→21:17)
[2017-07-29] MEDS: NOREPINEPHRINE INJ 4 MG in SODIUM CHLOR 0.9% 250 ML INJ 250 ML IV PRN ×6 (02:52→17:56)
[2017-07-29] MEDS: CISATRACURIUM INJ 100 MG in SODIUM CHLOR 0.9% 250 ML INJ 250 ML IV PRN ×2 (03:02→09:30)
[2017-07-29 03:06] LABS: AUTOMATED NEUTROPHIL # 3.4 TH/MM3 (1.8-7.7); BASOPHIL % 0.4 % (0.0-2.0); EOSINOPHIL # 0.4 TH/MM3 (0-0.4); EOSINOPHIL % 8.2 % (0.0-4.0); HEMATOCRIT 33.3 % (35.0-46.0); HEMOGLOBIN 11.3 GM/DL (11.6-15.3); LYMPH % 8.2 % (9.0-44.0); LYMPHOCYTE # 0.4 TH/MM3 (1.0-4.8); MEAN CELL VOLUME 95.4 FL (80.0-100.0); MEAN CORPUSCULAR HEMOGLOBIN 32.5 PG (27.0-34.0); MEAN CORPUSCULAR HGB CONC 34.1 % (32.0-36.0); MEAN PLATELET VOLUME 8.4 FL (7.0-11.0); MONO % 6.5 % (0.0-8.0); MONOCYTE # 0.3 TH/MM3 (0-0.9); NEUT % 76.7 % (16.0-70.0); PLATELET COUNT 209 TH/MM3 (150-450); RED BLOOD COUNT 3.49 MIL/MM3 (4.00-5.30); RED CELL DISTRIBUTION WIDTH 13.8 % (11.6-17.2); WHITE BLOOD COUNT 4.5 TH/MM3 (4.0-11.0)
--- NOTE | 2017-07-29 03:14 | RADRPT ---
EXAM DATE/TIME: 07/29/2017 02:08 [facility] COMPARISON: CHEST SINGLE AP, July 27, 2017, 3:42. INDICATIONS : Shortness of breath. MEDICAL HISTORY : Hypertension. SURGICAL HISTORY : Craniotomy ENCOUNTER: Subsequent ACUITY: 4 - 6 days PAIN SCORE: Non-responsive. LOCATION: Bilateral abdomen FINDINGS: Lines and tubes are present not significantly changed. Left basilar opacity is present may be due to a combination of consolidation and or pleural effusion. Perivascular pulmonary edema has not changed. CONCLUSION: No appreciable change. Eduardo Casanova MD on July 29, 2017 at 3:12 Board Certified Radiologist. This report was verified electronically.
[2017-07-29] MEDS: RESP: ALBUTEROL 2.5 MG/IPRATROPIUM 0.5 MG NEB (SCH) NEB ×4 (03:16→21:24)
--- NOTE | 2017-07-29 03:16 | RADRPT ---
EXAM DATE/TIME: 07/29/2017 02:13 [facility] COMPARISON: No previous studies available for comparison. INDICATIONS : Abdominal distention. MEDICAL HISTORY : Hypertension. SURGICAL HISTORY : Craniotomy ENCOUNTER: Initial ACUITY: 1 day PAIN SCORE: Non-responsive. LOCATION: Bilateral abdomen FINDINGS: NG tube is present with tip in the stomach. There is a distended stomach that measures 23 cm x 10.1 c m versus distended colon. There are no signs of obstruction or free air for technique. No definite ca lcified stones are identified for technique. CONCLUSION: Distended stomach or possibly distended colon in the mid abdomen. Eduardo Casanova MD on July 29, 2017 at 3:13 Board Certified Radiologist. This report was verified electronically.
[2017-07-29] MEDS: DEXTROSE 50% IN WATER 50 ML VIAL(D50) IV PUSH PRN ×4 (03:47→06:37)
[2017-07-29 03:48] LABS: BICARBONATE 21.1 MEQ/L (21.0-32.0); CALCIUM 7.3 MG/DL (8.5-10.1); CALCIUM-PROTEIN CORRECTED 8.3 MG/DL (8.5-10.1); CREATININE 0.56 MG/DL (0.50-1.00); MAGNESIUM 2.8 MG/DL (1.5-2.5); PHOSPHORUS 3.3 MG/DL (2.5-4.9); TOTAL BILIRUBIN ADULT 0.5 MG/DL (0.2-1.0); TOTAL PROTEIN 5.2 GM/DL (6.4-8.2)
[2017-07-29] MEDS: CHLORHEXIDINE GLUCONATE 2 % 1 PACK (2 CLOTHS) TOP SCH (04:00)
[2017-07-29 04:10] LABS: BANDS 33 % (0-6); METAMYELOCYTES 22 % (0-1); MONOCYTES 5 % (0-8); NEUTROPHIL # MANUAL DIFF 3.7 TH/MM3 (1.8-7.7); POLYS (SEG NEUTROPHILS) 27 % (16-70)
[2017-07-29 04:15] LABS: LYMPHOCYTES 5 % (9-44)
[2017-07-29 04:16] LABS: TOXIC VACUOLATION PRESENT (NONE SEEN)
[2017-07-29] MEDS: MIDAZOLAM 100 MG/100 ML INJ 100 ML IV PRN ×3 (05:08→22:34)
[2017-07-29] MEDS: LACTULOSE SYRUP 20 GM/30 ML CUP NG SCH ×3 (05:08→17:44)
[2017-07-29] MEDS: METOCLOPRAMIDE HCL 10 MG/2 ML VIAL IV PUSH SCH ×3 (05:11→21:43)
[2017-07-29] MEDS: ARTIFICIAL TEARS OPTH SOLN 15 ML BTL EACH EYE SCH ×3 (05:12→21:42)
[2017-07-29] MEDS: INSULIN NovoLIN REGULAR SUPPLEMENTAL SCALE SQ SCH ×3 (05:12→17:29)
[2017-07-29] MEDS: MANNITOL 12.5 GM/50 ML VIAL IV SCH ×3 (06:00→22:00)
--- NOTE | 2017-07-29 07:41 | HHI.CCPN ---
Subjective Remarks/Hospital Course Patient is a 41-year-old female, with possible history of hypertension , alcohol abuse who was brought to the [place] emergency department as a stroke alert. Apparently EMS was called after patient was found severely altered by with weakness on the right side. Initial blood pressure was 250s over 150. Patient started to seize and 2 mg Ativan given. Attempted intubation failed due to clenched jaw intubation. EMS gave lidocaine preparation for intubation. GCS 3 at scene and in ED. 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 Her initial BP in ED was 284/170. Patient was intubated by Dr. Rangel and was placed on propofol infusion, Cardene was initiated for blood pressure control. A stat CT of the head showed more than 5 cm intraparenchymal hemorrhage overlying left parietal left thalamus and left mesencephalon, with 1.3 cm left- to-right midline shift. Her intracranial hemorrhage most likely secondary to hypertensive emergency and not trauma or assualt related I evaluated the patient immediately in the emergency department. On my exam patient is comatose on the vent as received propofol boluses and currently is on nicardipine 5 mg per hour for blood pressure control. Right pupil is 5 mm left is 6 both and nonreactive . Patient shows extensive posturing to painful stimuli. Patient has received 25 g of mannitol, additional 12.5 mg ordered by neurosurgeon. Current SBP 270, I instructed the RN immediately give 50 mg propofol bolus, 100 g fentanyl bolus, and increase nicardipine infusion to 20 mg per hour. I also ordered as needed hydralazine and also sodium nitroprusside infusion in case we cannot control her blood pressure adequately. Dr. Hill arrived at the ED and the case was extensively discussed with him. The patient has suffered a devastating intracranial hemorrhage with poor chance of survival, however due to relatively young age Dr. Hill has offered significant for evacuation of the bleed. Prognosis remained poor even with surgery 07/25: Ventriculostomy clotted off overnight. Will be replaced as AM. Currently on midazolam, propofol and fentanyl drips for sedation. Last ICP was 7-11 per RN. Initiate tube feeding and bowel regimen today. 07/26: Patient continues with bilateral ventriculostomies. Overnight received 1 dose of hypertonic saline and potassium. ICP is currently 25. Started on cisatracurium remain elevated. Discussed with Dr. Hill. We will place cooling catheter. 07/27: ICP is currently at 16. Ventilator adjusted. Remains on maximum sedation with propofol, fentanyl, midazolam and paralyzed with cisatracurium and intravascularly cooled to 34C. Remains on trickle feeds. No bowel movement. Subjective 07/28: ICP is currently at 13. Received 1 dose of metal overnight due to elevated ICP around 30. Ventilator adjusted for end tidal CO2. Not tolerating tube feeding. Increasing metoclopramide 10 mg IV every 8 hours. Remains paralyzed and involving a intravascular cooling device for targeted temperature management. 07/29: ICP 15 - 22 range. Na 161, osmolality > 330. EtCO2 at lower level normal range. Heavily sedated, large analgesia dose. Relaxant to prevent shivering while hypothermia continues. This is maximal therapy for all intents and purposes. Objective Vital Signs Date Time Temp Pulse Resp B/P (MAP) Pulse Ox O2 Delivery O2 Flow Rate FiO2 07/29/17 06:00 72 07/29/17 05:31 131/73 07/29/17 04:00 93.2 20 96 07/29/17 04:00 50 07/28/17 19:00 Mechanical Ventilator Intake and Output 07/29/17 07/29/17 07/29/17 07:59 15:59 23:59 Intake Total 2823 ml Output Total 1104.0 ml Balance 1719.0 ml Result Diagram: 07/29/17 0255 07/29/17 0255 Imaging Last Impressions Chest X-Ray 07/27/17 0600 Signed Impressions: Service Date/Time: Thursday, July 27, 2017 03:42 - CONCLUSION: Left basilar opacity is present may be due to a combination of consolidation and or pleural effusion and probable mild pulmonary edema. Eduarod Casanova MD Head CT 07/25/17 0000 Signed Impressions: Service Date/Time: Tuesday, July 25, 2017 15:05 - CONCLUSION: Post surgical findings the left frontal region with decrease in size of left sided parenchymal hemorrhage. Surgical drain now in place. Intraventricular hemorrhage component again seen. Michel Phillips MD Objective Remarks GENERAL: 41-year-old female unresponsive on the vent, orotracheal intubation. SKIN: Cool and dry. Evolving bruises on trunk and extremities including the left face HEAD: Status post left temporoparietal craniotomy with ventriculostomy placed bilaterally. Serosanguineous CSF, now clearing. EYES: Right pupil 2 mm and reactive left is 3-4 mm and sluggish ENT: Orotracheally intubated, NECK: Trachea midline. Right IJ is clean dry and intact CARDIOVASCULAR: RRR. S1, S2. No S4.. Systolic murmur grade 2/6 LSB. RESPIRATORY: Few crackles both bases, good bilateral air movement. Symmetrical excursion. GASTROINTESTINAL: Abdomen soft, non-tender, nondistended. Few bowel sounds are appreciated MUSCULOSKELETAL: Old appearing bruises on anterior pretibial regions. 1+ bilateral upper and lower extremity edema. Quattro catheter right femoral is clean dry and intact NEUROLOGICAL: GCS 3T. No gag. Currently on cisatracurium drip. Date of Insertion: Jul 24, 2017 Line: Central Venous Catheter Side: Right Location: Internal, Jugular A/P Assessment and Plan NEURO/PSYCH: Severe left basal ganglia and thalamic hemorrhage with intraventricular extension 1.3 cm [id number] midline shift Severe acute encephalopathy Alcohol abuse THC -Postop day #4 left frontal temporal craniotomy with ventriculostomy replacement with evacuation of hematoma Dr. Hill - Postop day #2 right frontal wesley hole/ventriculostomy placement -Currently on mannitol 25 g IV every 8. Hold if serum osm greater than 315. Currently 320 - Keep Na above 145 in less than 155 3% saline. Currently off as sodium is 161 -Levetiracetam 500 mg IV twice a day 7 days for seizure prophylaxis -Currently on propofol at 70 mcg/kg per minute, fentanyl drip at 350 grams an hour and midazolam @ 12 milligrams an hour for sedation/analgesia while intubated for sedation and vent synchrony Currently on cisatracurium drip at 4 mcg/kg per minute to maintain train-of- four 1 out of 4 - End tidal CO2 35-40 -adjust 30-35 for elevated ICPs - Right Ventriculostomy -0 Cm H2O 46 cc ss left ventriculostomy 0 cm H2O 43 cc with ss - Follow up CT head in 07/25 revealed interval craniotomy. Surgical drain is in place in the region of the left basal ganglia. There's been interval decrease in size of parenchymal hemorrhage in this area now measuring 4.1 x 2.5 cm compared to 5.2 x 4.8 cm. Decrease in wruy-ef-suvja midline shift, now measuring 5 mm compared to 14 mm on the prior study. Persistent extensive intraventricular component of hemorrhage involving the anterior and posterior horns of lateral ventricles as well as the third ventricle and fourth ventricle. - Supplement multivitamin thiamine and folic acid and multivitamin daily - Further recommendation per Dr. Hill - 07/26 - status post 9.3 [place] 45 cm Quattro intravascular temperature management catheter to maintain induce hypothermia 34C - 07/29 Temp 92-93. RESP: Acute respiratory failure - PRTC 20/550/1./ - vent bundle -Albuterol/ipratropium aerosols every 6 hours scheduled and when necessary albuterol aerosols every 2 hours as needed dyspnea No spontaneous breathing trials while on continuous paralytic - Chest x-ray 07/27 revealed worsening aeration left lower lobe and possible small pleural effusion. CV: Hypertensive emergency - resolved Currently on norepinephrine drip at 12 mics grams per minute to maintain cerebral perfusion pressure greater than 65 - As needed nicardipine infusion, hydralazine 20 mg IV every 4 hours when necessary to keep SBP less than 150 diastolic blood pressure less than 90 - 2-D echo if patient makes meaningful recovery GI: Hypoalbuminemia Ileus Start on vital 1.5 goal 45 cc an hour at currently 10 cc an hour High residuals start metoclopramide 10 mill grams IV every 8 hours Lansoprazole 30 mg daily for GI prophylaxis Docusate sodium 100 twice a day, senna 8.6 mg twice a day for bowel regimen. Add polyethylene glycol 17 g twice a day and lactulose 30 cc 4 times daily. Glycerin suppository 1 today. Methylnaltrexone 12 mg subcutaneous 1 today. Check abdominal x-ray. Ileus oersists with no meaningful gastric emptying - place NG to suction until rewarmed. : - Monitor renal function closely. Foster catheter. IV hydration as above ID: - Perioperative antibiotics per Dr. Hill - Monitor for infection Blood cultures 2, sputum 07/26 no growth to date HEME: Normocytic anemia Thrombocytopenia - Monitor CBC, CMP, coags ENDO: Sliding-scale insulin with Novulin R with Accu-Cheks every 6 hours to maintain euglycemia/moderate regimen FEN: Hypernatremia Hypo-potassium Hypophosphatemia Hypo-magnesium Replace electrolytes as clinically indicated per ICU electrolyte protocol PROPH: - Bilateral lower extremity SCDs. Pharmacological DVT prophylaxis is contraindicated due to intracranial hemorrhage. Lansoprazole for GI prophylaxis Overall impression: Patient remains critically ill s/p rescue decompression large left brain parenchymal hematoma and persistent cerebral edema. Hypothermia and maximum medical therapy to reduce edema is operative. Critical Care 43 mins Pj Marquez MD Jul 29, 2017 07:41
[2017-07-29] MEDS: DEXT 5%-NACL 0.9% 1000 ML INJ 1,000 ML IV SCH ×2 (07:55→22:21)
[2017-07-29] MEDS: CHLORHEXIDINE 0.12% (ORAL KIT) 15 ML CUP MT SCH ×2 (09:01→21:42)
[2017-07-29] MEDS: LANSOPRAZOLE SOLUTAB 30 MG TAB NG SCH (09:02)
[2017-07-29] MEDS: FOLIC ACID 1 MG TAB PO SCH (09:02)
[2017-07-29] MEDS: SODIUM CHLORIDE 0.9% FLUSH 10 ML FLUSH IV FLUSH SCH ×2 (09:02→21:19)
[2017-07-29] MEDS: SENNOSIDES SYRUP 8.8 MG/5 ML CUP NG SCH ×2 (09:02→21:42)
[2017-07-29] MEDS: POLYETHYLENE GLYCOL 17 GM PKG PO SCH ×2 (09:02→21:42)
[2017-07-29] MEDS: levETIRAcetam INJ 500 MG in SODIUM CHLORIDE 0.9% INJ 100 ML IV SCH ×2 (09:03→21:42)
[2017-07-29] MEDS: THIAMINE HCL 100 MG TAB PO SCH (09:03)
[2017-07-29] MEDS: MULTIVITAMIN INJ 10 ML, THIAMINE INJ 100 MG, FOLIC ACID INJ 1 MG in SODIUM CHLORID 0.9%... IV SCH (09:14)
[2017-07-29] MEDS: fentaNYL DRIP 250 ML IV PRN ×2 (09:15→15:30)
--- NOTE | 2017-07-29 09:39 | HHI.NSPN ---
(Lawrence Borja) History Chief Complaint: ICH. (Lawrence Borja) Interval History 41-year-old female who was found unresponsive with vomit and agonal respirations. EMS was summoned and brought the patient to the [facility] Emergency Room. EMS was unable to intubate her and she was intubated on arrival to the emergency room. [place] coma Score was 3 at the scene and after intubation resuscitation improved to 4 with dilated pupils, left larger than right. 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 That is when he called the EMS. She does have a history of hypertension but has not been taking any medications and does not check her blood pressure regularly. CT scan of the head obtained reveals a large left basal ganglia hemorrhage that extends into the thalamus as well as the lateral ventricle with about a centimeter [id number]-[id number] midline shift. The hematoma measures about 5.8 cm in dimension. Her initial blood pressure was 270/136 and she has been placed on a Cardene drip along with Diprivan and has received mannitol also. 07/25/17: Pt sedated on Diprivan, Fentanyl, and Versed drips. Left pupil 3mm right 2mm NR bilaterally. No response to pain in upper chest. Ventriculostomy drain in place with blood, no waveform. 07/26/17: Pt heavily sedated on Diprivan, Fentanyl, and Versed drips. Left pupil 3mm right 2mm NR bilaterally. No response to pain. Ventriculostomy in place bilaterally. Right ventriculostomy drain with good ICP waveform. Pt requiring prn medications in addition to drips listed to keep ICP less than 20. 07/28/17: Pt heavily sedated on Diprivan, Fentanyl, Versed and Nimbex drips. ICPs currently controlled at 12. Left pupil 4mm NR, right 2mm NR. Bilateral ventriculotomy drains in place draining blood tinges CSF. 07/29/17: Pt remains heavily sedated on Diprivan, Fentanyl, Versed and Nimbex drips. ICPs 10-11 range. Bilateral ventriculostomy drains in place. (Lawrence Borja) System Review Comments Not able to obtain given clinical condition. (Lawrence Borja) Exam Results Vital Signs Date Time Temp Pulse Resp B/P (MAP) Pulse Ox O2 Delivery O2 Flow Rate FiO2 07/29/17 07:33 50 07/29/17 07:33 98 07/29/17 07:05 Mechanical Ventilator 07/29/17 06:00 72 07/29/17 05:31 131/73 07/29/17 04:00 93.2 20 Intake and Output 07/29/17 07/29/17 07/30/17 08:00 16:00 00:00 Intake Total 2931 ml Output Total 1104.0 ml Balance 1827.0 ml (Lawrence Borja) Physical Examination General: Pt in ICU heavily sedated with Diprivan, Fentanyl, Versed, and Nimbex drips. Eyes: Left pupil 4mm NR right 2mm NR. Sclera anicteric. Resp: Intubated. PRVC A/C rate 20. Peep 10. FiO2 50%. CTA bilaterally. Heart: NSR no murmurs. Pt on Norepinephrine drip. Abd: Soft positive bs Skin: Incision clean and dry. SCDs in place. Muscle: Not following for muscle testing. No response to pain in upper chest. Neuro: Pt sedated on Diprivan, Fentanyl, Versed and Nimbex drips. Not opening eyes. Left pupil 4mm right pupil 2mm NR bilaterally. Not following commands. Bilateral ventriculostomy drains in place at 0cmH20 draining blood tinged CSF. ICP 10-11. (Lawrence Borja) Lab, Micro, Other Results Last Impressions Chest X-Ray 07/29/17 06 Signed Impressions: Service Date/Time: Saturday, July 29, 2017 02:08 - CONCLUSION: No appreciable change. Eduardo Casanova MD Abdomen X-Ray 07/29/17 06 Signed Impressions: Service Date/Time: Saturday, July 29, 2017 02:13 - CONCLUSION: Distended stomach or possibly distended colon in the mid abdomen. Eduardo Casanova MD Head CT 07/25/17 0000 Signed Impressions: Service Date/Time: Tuesday, July 25, 2017 15:05 - CONCLUSION: Post surgical findings the left frontal region with decrease in size of left sided parenchymal hemorrhage. Surgical drain now in place. Intraventricular hemorrhage component again seen. Michel Phillips MD Laboratory Tests Test 07/28/17 12:50 07/28/17 17:35 07/28/17 21:00 07/29/17 02:55 Serum Osmolality 329 MOSM/KG 324 MOSM/KG 319 MOSM/KG 321 MOSM/KG Phosphorus Level 2.6 MG/DL 3.3 MG/DL Magnesium Level 1.8 MG/DL 2.8 MG/DL Sodium Level 160 MEQ/L 161 MEQ/L Potassium Level 2.9 MEQ/L 3.3 MEQ/L White Blood Count 4.5 TH/MM3 Red Blood Count 3.49 MIL/MM3 Hemoglobin 11.3 GM/DL Hematocrit 33.3 % Mean Corpuscular Volume 95.4 FL Mean Corpuscular Hemoglobin 32.5 PG Mean Corpuscular Hemoglobin Concent 34.1 % Red Cell Distribution Width 13.8 % Platelet Count 209 TH/MM3 Mean Platelet Volume 8.4 FL Neutrophils (%) (Auto) 76.7 % Lymphocytes (%) (Auto) 8.2 % Monocytes (%) (Auto) 6.5 % Eosinophils (%) (Auto) 8.2 % Basophils (%) (Auto) 0.4 % Neutrophils # (Auto) 3.4 TH/MM3 Lymphocytes # (Auto) 0.4 TH/MM3 Monocytes # (Auto) 0.3 TH/MM3 Eosinophils # (Auto) 0.4 TH/MM3 Basophils # (Auto) 0.0 TH/MM3 CBC Comment AUTO DIFF Differential Total Cells Counted 100 Neutrophils % (Manual) 27 % Band Neutrophils % 33 % Lymphocytes % 5 % Monocytes % 5 % Eosinophils % 8 % Neutrophils # (Manual) 3.7 TH/MM3 Metamyelocytes 22 % Differential Comment FINAL DIFF MANUAL Atypical Lymphocytes % Toxic Vacuolation PRESENT Platelet Estimate NORMAL Platelet Morphology Comment NORMAL Red Cell Morphology Comment NORMAL Blood Urea Nitrogen 15 MG/DL Creatinine 0.56 MG/DL Random Glucose 77 MG/DL Total Protein 5.2 GM/DL Albumin 2.0 GM/DL Calcium Level 7.3 MG/DL Alkaline Phosphatase 78 U/L Aspartate Amino Transf (AST/SGOT) 31 U/L Alanine Aminotransferase (ALT/SGPT) 14 U/L Total Bilirubin 0.5 MG/DL Chloride Level 133 MEQ/L Carbon Dioxide Level 21.1 MEQ/L Anion Gap 7 MEQ/L Estimat Glomerular Filtration Rate 121 ML/MIN Protein Corrected Calcium 8.3 MG/DL Total Creatine Kinase 49 U/L 07/29/17 07/29/17 07/30/17 15:00 23:00 07:00 Intake Total 108 ml Balance 108 ml Intake IV Total 108 ml (Lawrence Borja) Medical Decision Making Impression and Plan A: 41 y/o FM with large left basal ganglia / thalamic hemorrhage with extension into the ventricle and associated mass effect and midline shift with very poor neurologic examination and consistent with a transtentorial herniation. s/p Left frontotemporal craniotomy with cerebral hematoma evacuation; ventriculostomy placement; microsurgical technique on 07/24/17 2. Unregulated hypertension, which is likely the source of the current bleed. 3. Alcohol abuse. PLAN: Continue with close Neuro checks. Continue with critical care. Discussed with RN. (Lawrence Borja) Attending Statement The exam, history, and the medical decision-making described in the above note were completed with the assistance of the mid-level provider. I reviewed and agree with the findings presented. I attest that I had a [id number] encounter with the patient on the same day, and personally performed and documented my assessment and findings in the medical record. ICPs well- controlled with current regimen. We'll attempt weaning hypothermia and muscle paralyzation treatment as ICP allows. (Austin Hill MD) Lawrence Borja Jul 29, 2017 09:39 Austin Hill MD Jul 29, 2017 13:03
[2017-07-29] MEDS ORDERED: VASOPRESSIN 40 U/D5W 100 ML Titrate IV PRN ×2 (14:15)
[2017-07-29] MEDS: VASOPRESSIN 40 U/D5W 100 ML Titrate IV PRN ×2 (14:55)
[2017-07-29] MEDS ORDERED: NOREPINEPHRINE INJ 8 MG in SODIUM CHLOR 0.9% 250 ML INJ 242 ML IV PRN (20:15)
[2017-07-29] MEDS ORDERED: NOREPINEPHRINE 4 MG/4 ML AMP ONE (20:33)
[2017-07-29] MEDS ORDERED: DEXTROSE 50% IN WATER 50 ML VIAL(D50) IV PUSH ONE (21:15)
[2017-07-29] MEDS ORDERED: POTASSIUM CHLOR 40 MEQ PREMIX 100 ML IV PRN ×2 (23:15)
[2017-07-29] MEDS ORDERED: MAGNESIUM SULFATE INJ 2 GM in SODIUM CHLORIDE 0.9% INJ 96 ML IV PRN (23:15)
[2017-07-29] MEDS ORDERED: MAGNESIUM SULFATE INJ 4 GM in SODIUM CHLORIDE 0.9% INJ 92 ML IV PRN (23:15)
[2017-07-29] MEDS ORDERED: POTASSIUM PHOSPHATE INJ 30 MMOL in SODIUM CHLOR 0.9% 250 ML INJ 250 ML IV PRN (23:15)
[2017-07-29] MEDS ORDERED: POTASSIUM PHOSPHATE MONOBASIC 500 MG TAB PO/TUBE PRN (23:15)
[2017-07-29] MEDS ORDERED: POTASSIUM PHOSPHATE MONOBASIC 500 MG TAB PO PRN (23:15)
[2017-07-29] MEDS ORDERED: POTASSIUM CHLOR 20 MEQ PREMIX 100 ML IV PRN ×2 (23:15)
[2017-07-29] MEDS ORDERED: MAGNESIUM OXIDE 400 MG TAB PO PRN (23:15)
[2017-07-29] MEDS ORDERED: SODIUM PHOSPHATE INJ 30 MMOL in SODIUM CHLOR 0.9% 250 ML INJ 240 ML IV PRN (23:15)
[2017-07-29] MEDS ORDERED: POTASSIUM CHLORIDE 25 MEQ EFFERVESCENT TAB PO PRN (23:15)
[2017-07-30] VITALS (17 sets, daily range): BP systolic 105–118; BP diastolic 62–71; PULSE 73–82; RESP 20–21; TEMP 96.4–97.1; O2SAT 89–97
[2017-07-30] MEDS: LACTULOSE SYRUP 20 GM/30 ML CUP NG SCH ×4 (00:30→17:52)
[2017-07-30] MEDS: PROPOFOL 1000 MG/100 ML INJ 100 ML IV PRN ×9 (00:30→23:18)
[2017-07-30] MEDS: CISATRACURIUM INJ 100 MG in SODIUM CHLOR 0.9% 250 ML INJ 250 ML IV PRN ×5 (01:14→23:18)
[2017-07-30] MEDS: NOREPINEPHRINE INJ 8 MG in SODIUM CHLOR 0.9% 250 ML INJ 242 ML IV PRN ×6 (01:33→20:00)
[2017-07-30] MEDS: RESP: ALBUTEROL 2.5 MG/IPRATROPIUM 0.5 MG NEB (SCH) NEB ×4 (03:23→20:09)
[2017-07-30] MEDS: CHLORHEXIDINE GLUCONATE 2 % 1 PACK (2 CLOTHS) TOP SCH (04:00)
[2017-07-30] MEDS: VASOPRESSIN 40 U/D5W 100 ML Titrate IV PRN ×4 (04:55→19:00)
[2017-07-30] MEDS: MIDAZOLAM 100 MG/100 ML INJ 100 ML IV PRN ×3 (05:20→21:57)
[2017-07-30] MEDS: METOCLOPRAMIDE HCL 10 MG/2 ML VIAL IV PUSH SCH ×3 (05:23→20:39)
[2017-07-30 05:30] LABS: HEMOGLOBIN 10.7 GM/DL (11.6-15.3); MEAN CELL VOLUME 95.5 FL (80.0-100.0); MEAN CORPUSCULAR HEMOGLOBIN 33.1 PG (27.0-34.0); MEAN CORPUSCULAR HGB CONC 34.6 % (32.0-36.0); MEAN PLATELET VOLUME 8.6 FL (7.0-11.0); PLATELET COUNT 173 TH/MM3 (150-450); RED BLOOD COUNT 3.24 MIL/MM3 (4.00-5.30); RED CELL DISTRIBUTION WIDTH 14.3 % (11.6-17.2); WHITE BLOOD COUNT 7.2 TH/MM3 (4.0-11.0)
[2017-07-30] MEDS: INSULIN NovoLIN REGULAR SUPPLEMENTAL SCALE SQ SCH ×5 (05:48→22:15)
[2017-07-30] MEDS: ARTIFICIAL TEARS OPTH SOLN 15 ML BTL EACH EYE SCH ×3 (05:48→20:38)
[2017-07-30 05:49] LABS: BICARBONATE 18.6 MEQ/L (21.0-32.0); CALCIUM 7.4 MG/DL (8.5-10.1); CREATININE 0.67 MG/DL (0.50-1.00)
[2017-07-30] MEDS: MANNITOL 12.5 GM/50 ML VIAL IV SCH ×3 (06:00→19:45)
[2017-07-30] MEDS: fentaNYL DRIP 250 ML IV PRN ×3 (06:01→21:57)
[2017-07-30 06:05] LABS: CALCIUM-PROTEIN CORRECTED 8.7 MG/DL (8.5-10.1); TOTAL PROTEIN 4.8 GM/DL (6.4-8.2)
[2017-07-30] MEDS: DEXT 5%-NACL 0.9% 1000 ML INJ 1,000 ML IV SCH (06:41)
[2017-07-30] MEDS: CHLORHEXIDINE 0.12% (ORAL KIT) 15 ML CUP MT SCH ×2 (07:53→20:00)
[2017-07-30] MEDS: SENNOSIDES SYRUP 8.8 MG/5 ML CUP NG SCH ×2 (08:39→20:38)
[2017-07-30] MEDS: LANSOPRAZOLE SOLUTAB 30 MG TAB NG SCH (08:39)
[2017-07-30] MEDS: SODIUM CHLORIDE 0.9% FLUSH 10 ML FLUSH IV FLUSH SCH ×2 (08:39→20:40)
[2017-07-30] MEDS: FOLIC ACID 1 MG TAB PO SCH (08:40)
[2017-07-30] MEDS: THIAMINE HCL 100 MG TAB PO SCH (08:40)
[2017-07-30] MEDS: POLYETHYLENE GLYCOL 17 GM PKG PO SCH ×2 (08:40→20:39)
[2017-07-30] MEDS: levETIRAcetam INJ 500 MG in SODIUM CHLORIDE 0.9% INJ 100 ML IV SCH ×2 (08:40→20:39)
[2017-07-30] MEDS: MULTIVITAMIN INJ 10 ML, THIAMINE INJ 100 MG, FOLIC ACID INJ 1 MG in SODIUM CHLORID 0.9%... IV SCH (08:41)
--- NOTE | 2017-07-30 09:19 | HHI.NSPN ---
(Lawrence Borja) History Chief Complaint: ICH. (Lawrence Borja) Interval History 41-year-old female who was found unresponsive with vomit and agonal respirations. EMS was summoned and brought the patient to the [facility] Emergency Room. EMS was unable to intubate her and she was intubated on arrival to the emergency room. Gilbert coma Score was 3 at the scene and after intubation resuscitation improved to 4 with dilated pupils, left larger than right. 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 That is when he called the EMS. She does have a history of hypertension but has not been taking any medications and does not check her blood pressure regularly. CT scan of the head obtained reveals a large left basal ganglia hemorrhage that extends into the thalamus as well as the lateral ventricle with about a centimeter [id number] midline shift. The hematoma measures about 5.8 cm in dimension. Her initial blood pressure was 270/136 and she has been placed on a Cardene drip along with Diprivan and has received mannitol also. 07/25/17: Pt sedated on Diprivan, Fentanyl, and Versed drips. Left pupil 3mm right 2mm NR bilaterally. No response to pain in upper chest. Ventriculostomy drain in place with blood, no waveform. 07/26/17: Pt heavily sedated on Diprivan, Fentanyl, and Versed drips. Left pupil 3mm right 2mm NR bilaterally. No response to pain. Ventriculostomy in place bilaterally. Right ventriculostomy drain with good ICP waveform. Pt requiring prn medications in addition to drips listed to keep ICP less than 20. 07/28/17: Pt heavily sedated on Diprivan, Fentanyl, Versed and Nimbex drips. ICPs currently controlled at 12. Left pupil 4mm NR, right 2mm NR. Bilateral ventriculotomy drains in place draining blood tinges CSF. 07/29/17: Pt remains heavily sedated on Diprivan, Fentanyl, Versed and Nimbex drips. ICPs 10-11 range. Bilateral ventriculostomy drains in place. 07/30/17: Pt sedated on Diprivan, Fentanyl, and Versed drips. Nimbex was weaned off. ICP 15. Pt on Norepinephrine and Vasopressin. Bilateral ventriculostomy drains in place. (Lawrence Borja) System Review Comments Not able to obtain given clinical condition. (Lawrence Borja) Exam Results Vital Signs Date Time Temp Pulse Resp B/P (MAP) Pulse Ox O2 Delivery O2 Flow Rate FiO2 07/30/17 06:04 76 117/64 07/30/17 04:00 97.1 21 95 07/30/17 04:00 60 07/29/17 19:00 Mechanical Ventilator Intake and Output 07/30/17 07/30/17 07/31/17 08:00 16:00 00:00 Intake Total 2963 ml Output Total 1085 ml Balance 1878 ml (Lawrence Borja) Physical Examination General: Pt in ICU heavily sedated with Diprivan, Fentanyl, and Versed drips. Eyes: Left pupil 4mm NR right 2mm NR. Sclera anicteric. Resp: Intubated. PRVC A/C rate 21. Peep 10. FiO2 60%. CTA bilaterally. Heart: NSR no murmurs. Pt on Norepinephrine and Vasopressin drips. Abd: Soft diminished bs Skin: Incision clean and dry. SCDs in place. Muscle: Not following for muscle testing. No response to pain in upper chest. Neuro: Pt sedated on Diprivan, Fentanyl, and Versed drips. Not opening eyes. Left pupil 4mm right pupil 2mm NR bilaterally. Not following commands. Bilateral ventriculostomy drains in place at 0cmH20 draining blood tinged CSF. ICP 15. (Lawrence Borja) Lab, Micro, Other Results Last Impressions Chest X-Ray 07/29/17 06 Signed Impressions: Service Date/Time: Saturday, July 29, 2017 02:08 - CONCLUSION: No appreciable change. Eduardo Casanova MD Abdomen X-Ray 07/29/17 0600 Signed Impressions: Service Date/Time: Saturday, July 29, 2017 02:13 - CONCLUSION: Distended stomach or possibly distended colon in the mid abdomen. Eduardo Casanova MD Head CT 07/25/17 0000 Signed Impressions: Service Date/Time: Tuesday, July 25, 2017 15:05 - CONCLUSION: Post surgical findings the left frontal region with decrease in size of left sided parenchymal hemorrhage. Surgical drain now in place. Intraventricular hemorrhage component again seen. Michel Phillips MD Laboratory Tests Test 07/29/17 21:28 07/30/17 02:30 07/30/17 05:13 Potassium Level 2.5 MEQ/L 3.6 MEQ/L Serum Osmolality 323 MOSM/KG 325 MOSM/KG Blood Gas Puncture Site LU Blood Gas Patient Temperature 98.6 Blood Gas HCO3 16 mmol/L Blood Gas Base Excess -10.0 mmol/L Blood Gas Oxygen Saturation 96 % Arterial Blood pH 7.23 Arterial Blood Partial Pressure CO2 40 mmHg Arterial Blood Partial Pressure O2 113 mmHg Arterial Blood Oxygen Content 14.0 Vol % Arterial Blood Carboxyhemoglobin 0.8 % Arterial Blood Methemoglobin 1.2 % Blood Gas Hemoglobin 10.3 G/DL Oxygen Delivery Device VENTILATOR Blood Gas Ventilator Setting SEE COMMENT Blood Gas Inspired Oxygen 50 % White Blood Count 7.2 TH/MM3 Red Blood Count 3.24 MIL/MM3 Hemoglobin 10.7 GM/DL Hematocrit 31.0 % Mean Corpuscular Volume 95.5 FL Mean Corpuscular Hemoglobin 33.1 PG Mean Corpuscular Hemoglobin Concent 34.6 % Red Cell Distribution Width 14.3 % Platelet Count 173 TH/MM3 Mean Platelet Volume 8.6 FL Blood Urea Nitrogen 15 MG/DL Creatinine 0.67 MG/DL Random Glucose 75 MG/DL Total Protein 4.8 GM/DL Calcium Level 7.4 MG/DL Sodium Level 161 MEQ/L Chloride Level 134 MEQ/L Carbon Dioxide Level 18.6 MEQ/L Anion Gap 8 MEQ/L Estimat Glomerular Filtration Rate 98 ML/MIN Protein Corrected Calcium 8.7 MG/DL (Lawrence Borja) Medical Decision Making Impression and Plan A: 41 y/o FM with large left basal ganglia / thalamic hemorrhage with extension into the ventricle and associated mass effect and midline shift with very poor neurologic examination and consistent with a transtentorial herniation. s/p Left frontotemporal craniotomy with cerebral hematoma evacuation; ventriculostomy placement; microsurgical technique on 07/24/17 2. Unregulated hypertension, which is likely the source of the current bleed. 3. Alcohol abuse. PLAN: Continue with close Neuro checks. Continue with critical care. Discussed with RN. (Lawrence Borja) Attending Statement The exam, history, and the medical decision-making described in the above note were completed with the assistance of the mid-level provider. I reviewed and agree with the findings presented. I attest that I had a [id number] encounter with the patient on the same day, and personally performed and documented my assessment and findings in the medical record. ICPs controlled for the most part we'll attempt weaning off of some of the sedatives and muscle paralytics as tolerated. (Austin Hill MD) Lawrence Borja Jul 30, 2017 09:19 Austin Hill MD Jul 30, 2017 15:48
--- NOTE | 2017-07-30 10:04 | HHI.CCPN ---
Subjective Remarks/Hospital Course Patient is a 41-year-old female, with possible history of hypertension , alcohol abuse who was brought to the [place] emergency department as a stroke alert. Apparently EMS was called after patient was found severely altered by with weakness on the right side. Initial blood pressure was 250s over 150. Patient started to seize and 2 mg Ativan given. Attempted intubation failed due to clenched jaw intubation. EMS gave lidocaine preparation for intubation. GCS 3 at scene and in ED. 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 Her initial BP in ED was 284/170. Patient was intubated by Dr. Rangel and was placed on propofol infusion, Cardene was initiated for blood pressure control. A stat CT of the head showed more than 5 cm intraparenchymal hemorrhage overlying left parietal left thalamus and left mesencephalon, with 1.3 cm left- to-right midline shift. Her intracranial hemorrhage most likely secondary to hypertensive emergency and not trauma or assualt related I evaluated the patient immediately in the emergency department. On my exam patient is comatose on the vent as received propofol boluses and currently is on nicardipine 5 mg per hour for blood pressure control. Right pupil is 5 mm left is 6 both and nonreactive . Patient shows extensive posturing to painful stimuli. Patient has received 25 g of mannitol, additional 12.5 mg ordered by neurosurgeon. Current SBP 270, I instructed the RN immediately give 50 mg propofol bolus, 100 g fentanyl bolus, and increase nicardipine infusion to 20 mg per hour. I also ordered as needed hydralazine and also sodium nitroprusside infusion in case we cannot control her blood pressure adequately. Dr. Hill arrived at the ED and the case was extensively discussed with him. The patient has suffered a devastating intracranial hemorrhage with poor chance of survival, however due to relatively young age Dr. Hill has offered significant for evacuation of the bleed. Prognosis remained poor even with surgery 07/25: Ventriculostomy clotted off overnight. Will be replaced as AM. Currently on midazolam, propofol and fentanyl drips for sedation. Last ICP was 7-11 per RN. Initiate tube feeding and bowel regimen today. 07/26: Patient continues with bilateral ventriculostomies. Overnight received 1 dose of hypertonic saline and potassium. ICP is currently 25. Started on cisatracurium remain elevated. Discussed with Dr. Hill. We will place cooling catheter. 07/27: ICP is currently at 16. Ventilator adjusted. Remains on maximum sedation with propofol, fentanyl, midazolam and paralyzed with cisatracurium and intravascularly cooled to 34C. Remains on trickle feeds. No bowel movement. Subjective 07/28: ICP is currently at 13. Received 1 dose of metal overnight due to elevated ICP around 30. Ventilator adjusted for end tidal CO2. Not tolerating tube feeding. Increasing metoclopramide 10 mg IV every 8 hours. Remains paralyzed and involving a intravascular cooling device for targeted temperature management. 07/29: ICP 15 - 22 range. Na 161, osmolality > 330. EtCO2 at lower level normal range. Heavily sedated, large analgesia dose. Relaxant to prevent shivering while hypothermia continues. This is maximal therapy for all intents and purposes. 07/30: ICP control acceptable. Temp now 97. Stop relaxant, wean sedation. Objective Vital Signs Date Time Temp Pulse Resp B/P (MAP) Pulse Ox O2 Delivery O2 Flow Rate FiO2 07/30/17 09:58 74 115/69 07/30/17 08:00 97.1 21 94 07/30/17 08:00 60 07/30/17 07:00 Mechanical Ventilator Intake and Output 07/30/17 07/30/17 07/31/17 08:00 16:00 00:00 Intake Total 2963 ml 450 ml Output Total 1085 ml Balance 1878 ml 450 ml Result Diagram: 07/30/17 0513 07/30/17 0513 Other Results Laboratory Tests Test 07/30/17 02:30 Blood Gas Puncture Site LU Blood Gas Patient Temperature 98.6 Blood Gas HCO3 16 mmol/L (22-26) Blood Gas Base Excess -10.0 mmol/L (-2-2) Blood Gas Oxygen Saturation 96 % (90-100) Arterial Blood pH 7.23 (7.380-7.420) Arterial Blood Partial Pressure CO2 40 mmHg (38-42) Arterial Blood Partial Pressure O2 113 mmHg (61-120) Arterial Blood Oxygen Content 14.0 Vol % (12.0-20.0) Arterial Blood Carboxyhemoglobin 0.8 % (0-4) Arterial Blood Methemoglobin 1.2 % (0-2) Blood Gas Hemoglobin 10.3 G/DL (12.0-16.0) Oxygen Delivery Device VENTILATOR Blood Gas Ventilator Setting SEE COMMENT Blood Gas Inspired Oxygen 50 % Imaging Last Impressions Chest X-Ray 07/27/17 0600 Signed Impressions: Service Date/Time: Thursday, July 27, 2017 03:42 - CONCLUSION: Left basilar opacity is present may be due to a combination of consolidation and or pleural effusion and probable mild pulmonary edema. Eduardo Casanova MD Head CT 07/25/17 0000 Signed Impressions: Service Date/Time: Tuesday, July 25, 2017 15:05 - CONCLUSION: Post surgical findings the left frontal region with decrease in size of left sided parenchymal hemorrhage. Surgical drain now in place. Intraventricular hemorrhage component again seen. Michel Phillips MD Objective Remarks GENERAL: 41-year-old female unresponsive on the vent, orotracheal intubation. SKIN: Cool and dry. Evolving bruises on trunk and extremities including the left face HEAD: Status post left temporoparietal craniotomy with ventriculostomy placed bilaterally. Serosanguineous CSF, now clearing. EYES: Right pupil 2 mm and reactive left is 3-4 mm and sluggish ENT: Orotracheally intubated, NECK: Trachea midline. Right IJ is clean dry and intact CARDIOVASCULAR: RRR. S1, S2. No S4.. Systolic murmur grade 2/6 LSB. RESPIRATORY: Few crackles both bases, good bilateral air movement. Symmetrical excursion. GASTROINTESTINAL: Abdomen soft, non-tender, nondistended. Few bowel sounds are appreciated MUSCULOSKELETAL: Old appearing bruises on anterior pretibial regions. 1+ bilateral upper and lower extremity edema. Quattro catheter right femoral is clean dry and intact NEUROLOGICAL: GCS 3T. No gag. Currently on cisatracurium drip. Date of Insertion: Jul 24, 2017 Line: Central Venous Catheter Side: Right Location: Internal, Jugular A/P Assessment and Plan NEURO/PSYCH: Severe left basal ganglia and thalamic hemorrhage with intraventricular extension 1.3 cm [id number] midline shift Severe acute encephalopathy Alcohol abuse THC -Postop day #4 left frontal temporal craniotomy with ventriculostomy replacement with evacuation of hematoma Dr. Hill - Postop day #2 right frontal wesley hole/ventriculostomy placement -Currently on mannitol 25 g IV every 8. Hold if serum osm greater than 315. Currently 320 - Keep Na above 145 in less than 155 3% saline. Currently off as sodium is 161 -Levetiracetam 500 mg IV twice a day 7 days for seizure prophylaxis -Currently on propofol at 70 mcg/kg per minute, fentanyl drip at 350 grams an hour and midazolam @ 12 milligrams an hour for sedation/analgesia while intubated for sedation and vent synchrony Currently on cisatracurium drip at 4 mcg/kg per minute to maintain train-of- four 1 out of 4 - End tidal CO2 35-40 -adjust 30-35 for elevated ICPs - Right Ventriculostomy -0 Cm H2O 46 cc ss left ventriculostomy 0 cm H2O 43 cc with ss - Follow up CT head in 07/25 revealed interval craniotomy. Surgical drain is in place in the region of the left basal ganglia. There's been interval decrease in size of parenchymal hemorrhage in this area now measuring 4.1 x 2.5 cm compared to 5.2 x 4.8 cm. Decrease in [id number] midline shift, now measuring 5 mm compared to 14 mm on the prior study. Persistent extensive intraventricular component of hemorrhage involving the anterior and posterior horns of lateral ventricles as well as the third ventricle and fourth ventricle. - Supplement multivitamin thiamine and folic acid and multivitamin daily - Further recommendation per Dr. Hill - 07/26 - status post 9.3 [place] 45 cm Quattro intravascular temperature management catheter to maintain induce hypothermia 34C - 07/29 Temp 92-93. RESP: Acute respiratory failure - PRTC 20/550/1.05//40 - vent bundle -Albuterol/ipratropium aerosols every 6 hours scheduled and when necessary albuterol aerosols every 2 hours as needed dyspnea No spontaneous breathing trials while on continuous paralytic - Chest x-ray 07/27 revealed worsening aeration left lower lobe and possible small pleural effusion. CV: Hypertensive emergency - resolved Currently on norepinephrine drip at 12 mics grams per minute to maintain cerebral perfusion pressure greater than 65 - As needed nicardipine infusion, hydralazine 20 mg IV every 4 hours when necessary to keep SBP less than 150 diastolic blood pressure less than 90 - 2-D echo if patient makes meaningful recovery GI: Hypoalbuminemia Ileus Start on vital 1.5 goal 45 cc an hour at currently 10 cc an hour High residuals start metoclopramide 10 mill grams IV every 8 hours Lansoprazole 30 mg daily for GI prophylaxis Docusate sodium 100 twice a day, senna 8.6 mg twice a day for bowel regimen. Add polyethylene glycol 17 g twice a day and lactulose 30 cc 4 times daily. Glycerin suppository 1 today. Methylnaltrexone 12 mg subcutaneous 1 today. Check abdominal x-ray. Ileus oersists with no meaningful gastric emptying - place NG to suction until rewarmed. : - Monitor renal function closely. Foster catheter. IV hydration as above ID: - Perioperative antibiotics per Dr. Hill - Monitor for infection Blood cultures 2, sputum 07/26 no growth to date HEME: Normocytic anemia Thrombocytopenia - Monitor CBC, CMP, coags ENDO: Sliding-scale insulin with Novulin R with Accu-Cheks every 6 hours to maintain euglycemia/moderate regimen FEN: Hypernatremia Hypo-potassium Hypophosphatemia Hypo-magnesium Replace electrolytes as clinically indicated per ICU electrolyte protocol PROPH: - Bilateral lower extremity SCDs. Pharmacological DVT prophylaxis is contraindicated due to intracranial hemorrhage. Lansoprazole for GI prophylaxis Overall impression: Patient remains critically ill s/p rescue decompression large left brain parenchymal hematoma and persistent cerebral edema. Hypothermia and maximum medical therapy to reduce edema is operative. Critical Care 38 mins Pj Marquez MD Jul 30, 2017 10:04
[2017-07-30] MEDS ORDERED: CISATRACURIUM BESYLATE 20 MG/10 ML VIAL IV PUSH ONE (10:30)
[2017-07-30] MEDS: SODIUM CHLORIDE 23.4% INJ 154 MEQ in DEXTROSE 10% INJ 1,000 ML IV SCH (11:25)
[2017-07-30] MEDS: SODIUM BICARBONATE 8.4% INJ 100 MEQ in WATER STERILE FOR INJ 850 ML IV SCH ×2 (11:25→23:56)
[2017-07-30] MEDS: FUROSEMIDE 20 MG/2 ML VIAL IV PUSH SCH (17:53)
[2017-07-30] MEDS ORDERED: ALTEPLASE RECOMBINANT 2 MG VIAL IV ONE (18:15)
[2017-07-30] MEDS ORDERED: TERBUTALINE INJ 1 MG/ML AMP SQ PRN (20:30)
[2017-07-30] MEDS ORDERED: PHENYLEPHRINE INJ 160 MG in DEXTROSE 5% IN WATE 500 ML INJ 484 ML IV PRN ×2 (20:30)
[2017-07-30 20:56] LABS: MAGNESIUM 1.9 MG/DL (1.5-2.5); PHOSPHORUS 5.9 MG/DL (2.5-4.9)
[2017-07-30] MEDS: PHENYLEPHRINE INJ 160 MG in SODIUM CHLORID 0.9% 500 ML INJ 484 ML IV PRN (21:00)
--- NOTE | 2017-07-30 21:10 | RADRPT ---
EXAM DATE/TIME: 07/30/2017 20:45 [facility] COMPARISON: CHEST SINGLE AP, July 29, 2017, 2:08. INDICATIONS : Respiratory failure MEDICAL HISTORY : Hypertension. SURGICAL HISTORY : Craniotomy. ENCOUNTER: Subsequent ACUITY: 1 week PAIN SCORE: Non-responsive. LOCATION: Bilateral chest FINDINGS: Endotracheal tube tip is at the vimal. Nasogastric tube coils in the stomach. Right central line monica cends in the SVC. Hazy bilateral lower lung zone pleuroparenchymal opacities are grossly unchanged. C ardiac contours are stable. CONCLUSION: No significant interval change Rohan Montenegro MD on July 30, 2017 at 21:07 Board Certified Radiologist. This report was verified electronically.
[2017-07-31] VITALS (18 sets, daily range): BP systolic 112–148; BP diastolic 65–115; PULSE 80–120; RESP 21–24; TEMP 96.1–99.1; O2SAT 90–100
[2017-07-31] MEDS: LACTULOSE SYRUP 20 GM/30 ML CUP NG SCH ×4 (00:02→17:35)
[2017-07-31] MEDS: CHLORHEXIDINE GLUCONATE 2 % 1 PACK (2 CLOTHS) TOP SCH (00:46)
[2017-07-31] MEDS: NOREPINEPHRINE INJ 8 MG in SODIUM CHLOR 0.9% 250 ML INJ 242 ML IV PRN ×2 (02:12→10:39)
[2017-07-31] MEDS: CISATRACURIUM INJ 100 MG in SODIUM CHLOR 0.9% 250 ML INJ 250 ML IV PRN ×2 (03:05→06:13)
[2017-07-31] MEDS: RESP: ALBUTEROL 2.5 MG/IPRATROPIUM 0.5 MG NEB (SCH) NEB ×4 (04:06→20:27)
[2017-07-31] MEDS: MANNITOL 12.5 GM/50 ML VIAL IV SCH ×3 (06:00→21:55)
[2017-07-31] MEDS: INSULIN NovoLIN REGULAR SUPPLEMENTAL SCALE SQ SCH ×3 (06:00→17:35)
[2017-07-31] MEDS: PROPOFOL 1000 MG/100 ML INJ 100 ML IV PRN (06:13)
[2017-07-31] MEDS: ARTIFICIAL TEARS OPTH SOLN 15 ML BTL EACH EYE SCH ×2 (06:13→13:22)
[2017-07-31] MEDS: fentaNYL DRIP 250 ML IV PRN (06:14)
[2017-07-31] MEDS: METOCLOPRAMIDE HCL 10 MG/2 ML VIAL IV PUSH SCH ×3 (06:14→20:33)
[2017-07-31 06:16] LABS: BICARBONATE 20.2 MEQ/L (21.0-32.0); CALCIUM 7.5 MG/DL (8.5-10.1); CREATININE 0.78 MG/DL (0.50-1.00)
[2017-07-31] MEDS: MIDAZOLAM 100 MG/100 ML INJ 100 ML IV PRN (06:33)
[2017-07-31] MEDS: SODIUM CHLORIDE 23.4% INJ 154 MEQ in DEXTROSE 10% INJ 1,000 ML IV SCH (07:02)
--- NOTE | 2017-07-31 07:30 | HHI.CCPN ---
Subjective Remarks/Hospital Course Patient is a 41-year-old female, with possible history of hypertension , alcohol abuse who was brought to the [place] emergency department as a stroke alert. Apparently EMS was called after patient was found severely altered by with weakness on the right side. Initial blood pressure was 250s over 150. Patient started to seize and 2 mg Ativan given. Attempted intubation failed due to clenched jaw intubation. EMS gave lidocaine preparation for intubation. GCS 3 at scene and in ED. 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 Her initial BP in ED was 284/170. Patient was intubated by Dr. aRngel and was placed on propofol infusion, Cardene was initiated for blood pressure control. A stat CT of the head showed more than 5 cm intraparenchymal hemorrhage overlying left parietal left thalamus and left mesencephalon, with 1.3 cm left- to-right midline shift. Her intracranial hemorrhage most likely secondary to hypertensive emergency and not trauma or assualt related I evaluated the patient immediately in the emergency department. On my exam patient is comatose on the vent as received propofol boluses and currently is on nicardipine 5 mg per hour for blood pressure control. Right pupil is 5 mm left is 6 both and nonreactive . Patient shows extensive posturing to painful stimuli. Patient has received 25 g of mannitol, additional 12.5 mg ordered by neurosurgeon. Current SBP 270, I instructed the RN immediately give 50 mg propofol bolus, 100 g fentanyl bolus, and increase nicardipine infusion to 20 mg per hour. I also ordered as needed hydralazine and also sodium nitroprusside infusion in case we cannot control her blood pressure adequately. Dr. Hill arrived at the ED and the case was extensively discussed with him. The patient has suffered a devastating intracranial hemorrhage with poor chance of survival, however due to relatively young age Dr. Hill has offered significant for evacuation of the bleed. Prognosis remained poor even with surgery 07/25: Ventriculostomy clotted off overnight. Will be replaced as AM. Currently on midazolam, propofol and fentanyl drips for sedation. Last ICP was 7-11 per RN. Initiate tube feeding and bowel regimen today. 07/26: Patient continues with bilateral ventriculostomies. Overnight received 1 dose of hypertonic saline and potassium. ICP is currently 25. Started on cisatracurium remain elevated. Discussed with Dr. Hill. We will place cooling catheter. 07/27: ICP is currently at 16. Ventilator adjusted. Remains on maximum sedation with propofol, fentanyl, midazolam and paralyzed with cisatracurium and intravascularly cooled to 34C. Remains on trickle feeds. No bowel movement. Subjective 07/28: ICP is currently at 13. Received 1 dose of metal overnight due to elevated ICP around 30. Ventilator adjusted for end tidal CO2. Not tolerating tube feeding. Increasing metoclopramide 10 mg IV every 8 hours. Remains paralyzed and involving a intravascular cooling device for targeted temperature management. 07/29: ICP 15 - 22 range. Na 161, osmolality > 330. EtCO2 at lower level normal range. Heavily sedated, large analgesia dose. Relaxant to prevent shivering while hypothermia continues. This is maximal therapy for all intents and purposes. 07/30: ICP control acceptable. Temp now 97. Stop relaxant, wean sedation. 07/31: Pupils dilated. Unable to control ICP. Unresponsive. Objective Vital Signs Date Time Temp Pulse Resp B/P (MAP) Pulse Ox O2 Delivery O2 Flow Rate FiO2 07/31/17 06:00 100 07/31/17 06:00 83 07/31/17 04:07 90 07/31/17 04:00 96.4 21 112/67 (82) 07/30/17 07:00 Mechanical Ventilator Intake and Output 07/31/17 07/31/17 08/01/17 08:00 16:00 00:00 Intake Total 1340 ml Output Total 2485 ml Balance -1145 ml Result Diagram: 07/30/17 0513 07/31/17 0524 Imaging Last Impressions Chest X-Ray 07/27/17 0600 Signed Impressions: Service Date/Time: Thursday, July 27, 2017 03:42 - CONCLUSION: Left basilar opacity is present may be due to a combination of consolidation and or pleural effusion and probable mild pulmonary edema. Eduardo Casanova MD Head CT 07/25/17 0000 Signed Impressions: Service Date/Time: Tuesday, July 25, 2017 15:05 - CONCLUSION: Post surgical findings the left frontal region with decrease in size of left sided parenchymal hemorrhage. Surgical drain now in place. Intraventricular hemorrhage component again seen. Michel Phillips MD Objective Remarks GENERAL: 41-year-old female unresponsive on the vent, orotracheal intubation. SKIN: Cool and dry. Evolving bruises on trunk and extremities including the left face HEAD: Status post left temporoparietal craniotomy with ventriculostomy placed bilaterally. Serosanguineous CSF, now clearing. EYES: Right pupil 6 mm and nonreactive left is 6 mm and nonreactive ENT: Orotracheally intubated, NECK: Trachea midline. Right IJ is clean dry and intact CARDIOVASCULAR: RRR. S1, S2. No JVD. RESPIRATORY: Few crackles both bases, good bilateral air movement. Symmetrical excursion. GASTROINTESTINAL: Abdomen soft, non-tender, nondistended. Few bowel sounds are appreciated MUSCULOSKELETAL: Old appearing bruises on anterior pretibial regions. 1+ bilateral upper and lower extremity edema. Quattro catheter right femoral is clean dry and intact, used for lines, hypothermia off. NEUROLOGICAL: GCS 3T. No gag. Pupils 6 mm, no reaction. Date of Insertion: Jul 24, 2017 Line: Central Venous Catheter Side: Right Location: Internal, Jugular A/P Assessment and Plan NEURO/PSYCH: Severe left basal ganglia and thalamic hemorrhage with intraventricular extension 1.3 cm [id number] midline shift Severe acute encephalopathy Alcohol abuse THC -Postop day #4 left frontal temporal craniotomy with ventriculostomy replacement with evacuation of hematoma Dr. Hill - Postop day #2 right frontal wesley hole/ventriculostomy placement -Currently on mannitol 25 g IV every 8. Hold if serum osm greater than 315. Currently 320 - Keep Na above 145 in less than 155 3% saline. Currently off as sodium is 161 -Levetiracetam 500 mg IV twice a day 7 days for seizure prophylaxis -Currently on propofol at 70 mcg/kg per minute, fentanyl drip at 350 grams an hour and midazolam @ 12 milligrams an hour for sedation/analgesia while intubated for sedation and vent synchrony Currently on cisatracurium drip at 4 mcg/kg per minute to maintain train-of- four 1 out of 4 - End tidal CO2 35-40 -adjust 30-35 for elevated ICPs - Right Ventriculostomy -0 Cm H2O 46 cc ss left ventriculostomy 0 cm H2O 43 cc with ss - Follow up CT head in 07/25 revealed interval craniotomy. Surgical drain is in place in the region of the left basal ganglia. There's been interval decrease in size of parenchymal hemorrhage in this area now measuring 4.1 x 2.5 cm compared to 5.2 x 4.8 cm. Decrease in [id number] midline shift, now measuring 5 mm compared to 14 mm on the prior study. Persistent extensive intraventricular component of hemorrhage involving the anterior and posterior horns of lateral ventricles as well as the third ventricle and fourth ventricle. - Supplement multivitamin thiamine and folic acid and multivitamin daily - Further recommendation per Dr. Hill - 07/26 - status post 9.3 Bulgarian 45 cm Quattro intravascular temperature management catheter to maintain induce hypothermia 34C - 07/29 Temp 92-93. RESP: Acute respiratory failure - PRVC 20/550/1.05/ - vent bundle -Albuterol/ipratropium aerosols every 6 hours scheduled and when necessary albuterol aerosols every 2 hours as needed dyspnea No spontaneous breathing trials while on continuous paralytic - Chest x-ray 07/27 revealed worsening aeration left lower lobe and possible small pleural effusion. CV: Hypertensive emergency - resolved Currently on norepinephrine drip at 12 mics grams per minute to maintain cerebral perfusion pressure greater than 65 - As needed nicardipine infusion, hydralazine 20 mg IV every 4 hours when necessary to keep SBP less than 150 diastolic blood pressure less than 90 - 2-D echo if patient makes meaningful recovery GI: Hypoalbuminemia Ileus Start on vital 1.5 goal 45 cc an hour at currently 10 cc an hour High residuals start metoclopramide 10 mill grams IV every 8 hours Lansoprazole 30 mg daily for GI prophylaxis Docusate sodium 100 twice a day, senna 8.6 mg twice a day for bowel regimen. Add polyethylene glycol 17 g twice a day and lactulose 30 cc 4 times daily. Glycerin suppository 1 today. Methylnaltrexone 12 mg subcutaneous 1 today. Check abdominal x-ray. Ileus oersists with no meaningful gastric emptying - place NG to suction until rewarmed. : - Monitor renal function closely. Foster catheter. IV hydration as above ID: - Perioperative antibiotics per Dr. Hill - Monitor for infection Blood cultures 2, sputum 07/26 no growth to date HEME: Normocytic anemia Thrombocytopenia - Monitor CBC, CMP, coags ENDO: Sliding-scale insulin with Novulin R with Accu-Cheks every 6 hours to maintain euglycemia/moderate regimen FEN: Hypernatremia Hypo-potassium Hypophosphatemia Hypo-magnesium Replace electrolytes as clinically indicated per ICU electrolyte protocol PROPH: - Bilateral lower extremity SCDs. Pharmacological DVT prophylaxis is contraindicated due to intracranial hemorrhage. Lansoprazole for GI prophylaxis Overall impression: Patient remains critically ill s/p rescue decompression large left brain parenchymal hematoma and persistent cerebral edema. Hypothermia and maximum medical therapy to reduce edema is operative. Now with ongoing neurological deterioration and unstable. Critical Care 40 mins Pj Marquez MD Jul 31, 2017 07:30
[2017-07-31] MEDS: CHLORHEXIDINE 0.12% (ORAL KIT) 15 ML CUP MT SCH ×2 (08:00→20:00)
[2017-07-31] MEDS: POLYETHYLENE GLYCOL 17 GM PKG PO SCH ×2 (09:00→20:33)
[2017-07-31] MEDS: MULTIVITAMIN INJ 10 ML, THIAMINE INJ 100 MG, FOLIC ACID INJ 1 MG in SODIUM CHLORID 0.9%... IV SCH (09:00)
[2017-07-31] MEDS: SODIUM CHLORIDE 0.9% FLUSH 10 ML FLUSH IV FLUSH SCH ×2 (09:00→20:34)
[2017-07-31] MEDS: SENNOSIDES SYRUP 8.8 MG/5 ML CUP NG SCH ×2 (09:00→20:34)
[2017-07-31] MEDS: LANSOPRAZOLE SOLUTAB 30 MG TAB NG SCH (09:01)
[2017-07-31] MEDS: FUROSEMIDE 20 MG/2 ML VIAL IV PUSH SCH ×2 (09:01→18:16)
[2017-07-31] MEDS: THIAMINE HCL 100 MG TAB PO SCH (09:02)
[2017-07-31] MEDS: levETIRAcetam INJ 500 MG in SODIUM CHLORIDE 0.9% INJ 100 ML IV SCH ×2 (09:02→20:33)
[2017-07-31] MEDS: FOLIC ACID 1 MG TAB PO SCH (09:02)
--- NOTE | 2017-07-31 10:15 | HHI.NSPN ---
(Lawrence Borja) History Chief Complaint: ICH. (Lawrence Borja) Interval History 41-year-old female who was found unresponsive with vomit and agonal respirations. EMS was summoned and brought the patient to the [facility] Emergency Room. EMS was unable to intubate her and she was intubated on arrival to the emergency room. [place] coma Score was 3 at the scene and after intubation resuscitation improved to 4 with dilated pupils, left larger than right. 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 That is when he called the EMS. She does have a history of hypertension but has not been taking any medications and does not check her blood pressure regularly. CT scan of the head obtained reveals a large left basal ganglia hemorrhage that extends into the thalamus as well as the lateral ventricle with about a centimeter [id number] midline shift. The hematoma measures about 5.8 cm in dimension. Her initial blood pressure was 270/136 and she has been placed on a Cardene drip along with Diprivan and has received mannitol also. 07/25/17: Pt sedated on Diprivan, Fentanyl, and Versed drips. Left pupil 3mm right 2mm NR bilaterally. No response to pain in upper chest. Ventriculostomy drain in place with blood, no waveform. 07/26/17: Pt heavily sedated on Diprivan, Fentanyl, and Versed drips. Left pupil 3mm right 2mm NR bilaterally. No response to pain. Ventriculostomy in place bilaterally. Right ventriculostomy drain with good ICP waveform. Pt requiring prn medications in addition to drips listed to keep ICP less than 20. 07/28/17: Pt heavily sedated on Diprivan, Fentanyl, Versed and Nimbex drips. ICPs currently controlled at 12. Left pupil 4mm NR, right 2mm NR. Bilateral ventriculotomy drains in place draining blood tinges CSF. 07/29/17: Pt remains heavily sedated on Diprivan, Fentanyl, Versed and Nimbex drips. ICPs 10-11 range. Bilateral ventriculostomy drains in place. 07/30/17: Pt sedated on Diprivan, Fentanyl, and Versed drips. Nimbex was weaned off. ICP 15. Pt on Norepinephrine and Vasopressin. Bilateral ventriculostomy drains in place. 07/31/17: Pt had a Neuro change early this morning with dilated pupils and ICPs in the 30s and 40s. Pt has been taken off all her sedative drips this morning since the neuro change. Pupils are 8mm bilaterally. NR bilaterally. (Lawrence Borja) System Review Comments Not able to obtain given clinical condition. (Lawrence Borja) Exam Results Vital Signs Date Time Temp Pulse Resp B/P (MAP) Pulse Ox O2 Delivery O2 Flow Rate FiO2 07/31/17 08:57 99 90 07/31/17 06:00 83 07/31/17 04:00 96.4 21 112/67 (82) 07/30/17 07:00 Mechanical Ventilator Intake and Output 07/31/17 07/31/17 08/01/17 08:00 16:00 00:00 Intake Total 1340 ml Output Total 2485 ml Balance -1145 ml (Lawrence Borja) Physical Examination General: Pt in ICU sedative drips have been stopped. She remains on pressors. Eyes: Pupils 8mm bilaterally NR bilaterally. Sclera anicteric. Resp: Intubated. PRVC A/C rate 23. Peep 10. FiO2 90%. Coarse bs bilaterally. Heart: NSR no murmurs. Pt on Norepinephrine and Vasopressin drips. Abd: Soft diminished bs Skin: Incision clean and dry. SCDs in place. Muscle: Not following for muscle testing. No response to pain in upper chest. Neuro: Pt sedative drips turned off. Not opening eyes. Pupils 8mm bilaterally NR bilaterally. Not following commands. Bilateral ventriculostomy drains in place at 0cmH20 draining blood tinged CSF. ICP 40s. (Lawrence Borja) Lab, Micro, Other Results Last Impressions Chest X-Ray 07/30/17 0000 Signed Impressions: Service Date/Time: July 20:45 - CONCLUSION: No significant interval change Rohan Montenegro MD Abdomen X-Ray 07/29/17 0600 Signed Impressions: Service Date/Time: Saturday, July 29, 2017 02:13 - CONCLUSION: Distended stomach or possibly distended colon in the mid abdomen. Eduardo Casanova MD Head CT 07/25/17 0000 Signed Impressions: Service Date/Time: Tuesday, July 25, 2017 15:05 - CONCLUSION: Post surgical findings the left frontal region with decrease in size of left sided parenchymal hemorrhage. Surgical drain now in place. Intraventricular hemorrhage component again seen. Michel Phillips MD Laboratory Tests Test 07/30/17 12:30 07/30/17 19:56 07/31/17 05:24 Sodium Level 162 MEQ/L 158 MEQ/L Potassium Level 3.5 MEQ/L 4.1 MEQ/L Serum Osmolality 321 MOSM/KG 319 MOSM/KG Urine Random Sodium 149 MEQ/L Phosphorus Level 5.9 MG/DL Magnesium Level 1.9 MG/DL Blood Urea Nitrogen 20 MG/DL Creatinine 0.78 MG/DL Random Glucose 68 MG/DL Calcium Level 7.5 MG/DL Chloride Level 127 MEQ/L Carbon Dioxide Level 20.2 MEQ/L Anion Gap 11 MEQ/L Estimat Glomerular Filtration Rate 82 ML/MIN (Lawrence Borja) Medical Decision Making Impression and Plan A: 41 y/o FM with large left basal ganglia / thalamic hemorrhage with extension into the ventricle and associated mass effect and midline shift with very poor neurologic examination and consistent with a transtentorial herniation. s/p Left frontotemporal craniotomy with cerebral hematoma evacuation; ventriculostomy placement; microsurgical technique on 07/24/17 2. Unregulated hypertension, which is likely the source of the current bleed. 3. Alcohol abuse. PLAN: Continue with supportive care Discussed with RN. Palliative care has been consulted. (Lawrence Borja) Attending Statement The exam, history, and the medical decision-making described in the above note were completed with the assistance of the mid-level provider. I reviewed and agree with the findings presented. I attest that I had a [id number] encounter with the patient on the same day, and personally performed and documented my assessment and findings in the medical record. ICPs intractable with bilaterally dilated pupils noted. We'll discontinue all sedatives and muscle paralytics to assess for any brain stem activity. Discussed with daughter at bedside. (Austin Hill MD) Lawrence Borja Jul 31, 2017 10:15 Austin Hill MD Jul 31, 2017 10:27
[2017-07-31] MEDS: PHENYLEPHRINE INJ 160 MG in SODIUM CHLORID 0.9% 500 ML INJ 484 ML IV PRN (10:38)
--- NOTE | 2017-07-31 11:00 | PD.CONS ---
Consult Service Palliative Care Consult Requested By Dr Marquez Primary Care Physician Unknown Reason for Consultation a. To assist with evaluation and management of symptoms including: Dyspnea; seizures; pain b. To assist medical decision maker(s) with: better understanding of current medical conditions; weighing benefits/burdens of medical treatment options; making medical treatment decisions. HPI History of Present Illness Mrs. Pittman is a 41 year-old female with past medical history of hypertension reportedly stopped taking her meds, alcohol and marijuana use and prior stroke 10 years ago. Patient presented to [facility] as a stroke alert on . She was intubated on arrival in the emergency department following acute seizure and hypertension. Her initial blood pressure in the ED was 284/170 and GCS was reported as [address] Stat head CT showed a >5cm intraparenchymal hemorrhage overlying left parietal left thalamus and left mesencephalon with 1.3cm [id number] midline shift. She was posturing to painful stimuli; pupils were unequal and left side was not reactive. Despite the poor prognostic factors, Dr Hill agreed to evacuate the bleed given her young age. She underwent left frontotemporal craniotomy with cerebral hematoma evacuation; ventriculostomy placement; microsurgical technique on 07/24/17. On 07/26/17, Quattro intravascular temperature management catheter was placed to induce hypothermia 34 degrees C. 07/31/17, significant neuro status has change with dilated pupils, 8mm, fixed and increased ICP 30-40s. Patient was taken off all sedation. Discussed with Dr. Marquez and nurse. Dr. Marquez does not feel patient will survive this hospitalization. He has spoken with family. Uncertain if patient will progress to brain . Palliative care is consulted to assist with clarification of goals of care in this young woman with ICH, fixed and dilated pupils, elevated ICPs and no options for additional treatment. . Function/Cognitive Trajectory Apparently, Mrs Pittman had been functioning at her baseline prior to the acute onset of the events leading to hospitalization; in fact, she had been painting the murillo prior to acute onset. . Review of Systems ROS Limitations: Clinical Condition, Intubated, Unresponsive Respiratory: COMPLAINS OF: Apneas, Shortness of breath Cardiovascular: COMPLAINS OF: Lower Extremity Edema Gastrointestinal: COMPLAINS OF: Constipation Hematologic/Lymphatics: COMPLAINS OF: Bruising Neurologic: COMPLAINS OF: Seizures Other ROS: ROS per EMR review and family report Past Family Social History Coded Allergies: No Allergy Information Available (Unverified , 07/24/17) Past Medical History Hypertension; CVA; alcohol abuse Past Surgical History C - section x 1 . Reported Medications Reportedly on no medications; patient had elected to stop taking antihypertensives . Current Medications Medications (Trade) Dose Ordered Sig/Frank Route Start Time Stop Time Status Last Admin (Apresoline Inj) 20 mg Q4H PRN IV PUSH 07/24/17 21:00 07/27/17 18:41 (NS Flush) 2 ml UNSCH PRN IV FLUSH 07/24/17 21:00 (NS Flush) 2 ml BID IV FLUSH 07/24/17 21:00 07/31/17 09:00 (Peridex 0.12% Liq) 15 ml BID@08,20 MT 07/24/17 20:15 07/31/17 08:00 Miscellaneous Information 1 [id number] XX 07/24/17 20:15 07/24/17 20:15 (Chlorhexidine 2% Cloth) Taper DAILY@04 TOP 07/25/17 04:00 07/21/18 03:59 (Chlorhexidine 2% Cloth) 3 pack UNSCH PRN TOP 07/24/17 21:30 (Tylenol) 650 mg Q6H PRN PO 07/24/17 20:15 (fentaNYL INJ) 50 mcg Q1H PRN IV PUSH 07/24/17 21:00 07/31/17 04:28 Levetriacetam 500 mg/Sodium Chloride 105 ml @ 420 mls/hr Q12H IV 07/24/17 22:00 07/31/17 09:02 (Mannitol Inj) 25 gm Q8H IV 07/24/17 22:00 07/27/17 16:02 Sodium Chloride 500 ml @ 10 mls/hr Q10H IV 07/25/17 02:30 Future Hold 07/25/17 22:30 (Tears Naturale Opth Soln) 1 drop Q8HR EACH EYE 07/25/17 14:00 07/31/17 06:13 (Senna Liq) 8.8 mg BID NG 07/25/17 09:00 07/30/17 20:38 (Glucagon Inj) 1 mg UNSCH PRN OTHER 07/25/17 06:30 (NovoLIN R SUPPLEMENTAL SCALE) 1 Q6HR SQ 07/25/17 12:00 Multivitamins 10 ml/Thiamine HCl 100 mg/Folic Acid 1 mg/Sodium Chloride 511.2 ml @ 125 mls/hr DAILY IV 07/26/17 09:00 07/29/17 09:14 (Miralax) 17 gm BID PO 07/26/17 21:00 07/30/17 20:39 (Albuterol Neb) 2.5 mg Q2HR NEB PRN INH 07/26/17 10:30 (Ativan Inj) 1 mg Q1H PRN IV PUSH 07/26/17 13:45 Miscellaneous Information ml @ 0 mls/hr UNSCH IV 07/26/17 13:45 (NS Flush) 2 ml UNSCH PRN IV FLUSH 07/26/17 13:45 (Tylenol 650 Mg/ 20 ml Liq) 650 mg Q6H PRN NG 07/26/17 13:45 (Buspar) 15 mg BID PRN NG 07/26/17 13:45 (Lacrilube Opht Oint) 1 applic Q4H PRN EACH EYE 07/26/17 13:45 07/29/17 00:01 Fentanyl Citrate 250 ml @ 5 mls/hr TITRATE PRN IV 07/26/17 16:30 07/31/17 06:14 Midazolam HCl 100 ml @ 2 mls/hr TITRATE PRN IV 07/26/17 16:30 07/31/17 06:33 Propofol 100 ml @ 2.25 mls/hr TITRATE PRN IV 07/26/17 16:30 07/31/17 06:13 (Vitamin B1) 100 mg DAILY PO 07/27/17 09:00 07/31/17 09:02 (Folate) 1 mg DAILY PO 07/27/17 09:00 07/31/17 09:02 (Prevacid Odt) 30 mg DAILY NG 07/27/17 09:00 07/31/17 09:01 Sodium Chloride 500 ml @ 10 mls/hr CONTINUOUS IV 07/27/17 17:30 Future Hold (Duoneb Neb) 1 ampule Q6HR NEB NEB 07/28/17 10:00 07/31/17 08:57 (Lactulose Liq) 30 ml Q6HR NG 07/28/17 12:00 07/31/17 06:14 (Reglan Inj) 10 mg Q8HR IV PUSH 07/28/17 14:00 07/31/17 06:14 (Insta-Glucose (Adult) Gel) 31 gm UNSCH PRN PO 07/28/17 23:45 07/29/17 00:01 (D50w (Vial) Inj) 12.5 ml UNSCH PRN IV PUSH 07/29/17 06:15 07/29/17 06:37 Vasopressin 40 units/Dextrose 100 ml @ 1.5 mls/hr TITRATE PRN IV 07/29/17 14:30 07/30/17 19:00 Norepinephrine Bitartrate 8 mg/ Sodium Chloride 250 ml @ 3.75 mls/hr TITRATE PRN IV 07/29/17 23:15 07/31/17 02:12 Potassium Chloride 100 ml @ 50 mls/hr Q2H PRN IV 07/29/17 23:15 07/30/17 01:05 Potassium Chloride 100 ml @ 50 mls/hr Q2H PRN IV 07/29/17 23:15 (K-Lyte Cl Eff) 50 meq UNSCH PRN PO 07/29/17 23:15 Potassium Chloride 100 ml @ 25 mls/hr UNSCH PRN IV 07/29/17 23:15 Potassium Chloride 100 ml @ 50 mls/hr Q2H PRN IV 07/29/17 23:15 Magnesium Sulfate 4 gm/Sodium Chloride 100 ml @ 50 mls/hr UNSCH PRN IV 07/29/17 23:15 (Mag-Ox) 800 mg UNSCH PRN PO 07/29/17 23:15 Magnesium Sulfate 2 gm/Sodium Chloride 100 ml @ 50 mls/hr UNSCH PRN IV 07/29/17 23:15 (K-Phos) 2,000 mg Q4H PRN PO 07/29/17 23:15 Sodium Phosphate 30 mmol/Sodium Chloride 250 ml @ 42 mls/hr UNSCH PRN IV 07/29/17 23:15 (K-Phos) 2,000 mg UNSCH PRN PO/TUBE 07/29/17 23:15 Potassium Phosphate 30 mmol/ Sodium Chloride 260 ml @ 42 mls/hr UNSCH PRN IV 07/29/17 23:15 Sodium Bicarbonate 100 meq/Sterile Water 950 ml @ 75 mls/hr [id number] IV 07/30/17 11:00 07/30/17 23:56 Sodium Chloride 154 meq/Dextrose 1,038.5 ml @ 50 mls/hr [id number] IV 07/30/17 10:15 07/31/17 07:02 (Lasix Inj) 20 mg BID@09,18 IV PUSH 07/30/17 18:00 07/31/17 09:01 Cisatracurium Besylate 100 mg/ Sodium Chloride 260 ml @ 15.28 mls/ hr TITRATE PRN IV 07/30/17 11:00 07/31/17 06:13 (Brethine Inj) 1 mg UNSCH PRN SQ 07/30/17 20:30 Phenylephrine HCl 160 mg/Sodium Chloride 500 ml @ 7.5 mls/hr TITRATE PRN IV 07/30/17 20:45 07/30/17 21:00 . Family History Father of [place] age 50. Mother with hypertension and Type II DM. Brother . . Substance Use Tobacco:no tobacco currently, quit recently per family. Alcohol: drinks 6-8 beers daily Prescription med abuse: none known Illicits:smokes marijuana . Psychosocial History Born at [place]. for 8 years. Has 4 children. 2 adult children (Jacklyn and Ray) and 2 minor children, ages 11 and 13. 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 . 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 Patient is Caodaism tressa. . Living Will: Never completed Health Care Surrogate: Never completed Durable Power of Operational Assistant: Never completed Health Care Surrogate(s): Patient is not capacitated to make her own health care decisions, she will not regain capacity. No written advanced directives. According to [place] statutes, health care proxy decision making falls to her spouse. . Today's verbally stated goals: Patient is not capacitated to make her own health care decisions, she will not regain capacity. . Family/friends goals: Family has elected NO CODE, understands possible progression to brain . . Ethical and Legal Issues Patient is not capacitated to make her own health care decisions, she will not regain capacity. No written advanced directives. According to [place] statutes, health care proxy decision making falls to her spouse. . Physical Exam Vital Signs Date Time Temp Pulse Resp B/P (MAP) Pulse Ox O2 Delivery O2 Flow Rate FiO2 07/31/17 08:57 99 90 07/31/17 06:00 100 07/31/17 06:00 83 07/31/17 04:07 90 100 07/31/17 04:00 86 07/31/17 04:00 96.4 90 21 112/67 (82) 93 07/31/17 04:00 100 07/31/17 03:43 82 98/56 07/31/17 02:34 81 100/54 07/31/17 02:12 82 104/63 07/31/17 02:00 82 07/31/17 01:10 93 100 07/31/17 00:00 80 07/31/17 00:00 96.1 81 21 119/72 (88) 93 07/31/17 00:00 100 07/30/17 22:00 80 07/30/17 21:42 81 120/71 07/30/17 21:00 82 102/60 07/30/17 20:10 90 100 07/30/17 20:10 89 100 07/30/17 20:00 82 07/30/17 20:00 100 07/30/17 20:00 96.4 82 21 106/62 (77) 93 07/30/17 20:00 82 98/54 07/30/17 20:00 82 108/64 07/30/17 19:00 83 112/65 07/30/17 18:49 78 88/49 07/30/17 18:00 81 07/30/17 17:43 78 115/71 07/30/17 17:27 92 80 07/30/17 16:00 60 07/30/17 16:00 78 07/30/17 16:00 97.1 78 21 110/66 (81) 96 07/30/17 15:57 77 114/69 07/30/17 14:00 78 07/30/17 13:31 96 60 07/30/17 12:00 97.1 80 21 116/70 (85) 95 07/30/17 12:00 80 07/30/17 12:00 60 Exam CONSTITUTIONAL/GENERAL: This is an adequately nourished patient, unresponsive on [facility]. TUBES/LINES/DRAINS: Left bone flap, bilateral ventriculostomy, ETT, OG. right IJ central line, PIV left, right radial a line, Right femoral catheter, Foster, SCDs. SKIN: No jaundice, rashes, or lesions. Ecchymoses on upper extremities. No wounds seen anteriorly. Skin temperature appropriate. Not diaphoretic. HEAD: left bon eflap removed, tim intact, bilateral ventriculostomy. EYES: Pupils 8mm, fixed and dilated. + scleral edema. ENT: Unable to assess hearing. Nose without bleeding or purulent drainage. Throat difficult to visualize due to tubes. NECK: Trachea midline. CARDIOVASCULAR: Regular rate and rhythm without murmurs, gallops, or rubs. RESPIRATORY/CHEST: Symmetric, unlabored respirations on mech vent. Course breath sounds noted. GASTROINTESTINAL: Abdomen soft, mildly distended. Bowel sounds hypoactive. GENITOURINARY: Without palpable bladder distension. Foster catheter in place. MUSCULOSKELETAL: Extremities with edema, UE > LE. No mottling or clubbing. LYMPHATICS: No palpable cervical or supraclavicular adenopathy. NEUROLOGICAL: Unresponsive off sedation. PSYCHIATRIC: Unresponsive. . Diagnostic Tests Laboratory Laboratory Tests Test 07/28/17 12:50 07/28/17 17:35 07/28/17 21:00 07/29/17 02:55 Serum Osmolality 329 MOSM/KG (275-295) 324 MOSM/KG (275-295) 319 MOSM/KG (275-295) 321 MOSM/KG (275-295) Phosphorus Level 2.6 MG/DL (2.5-4.9) 3.3 MG/DL (2.5-4.9) Magnesium Level 1.8 MG/DL (1.5-2.5) 2.8 MG/DL (1.5-2.5) Sodium Level 160 MEQ/L (136-145) 161 MEQ/L (136-145) Potassium Level 2.9 MEQ/L (3.5-5.1) 3.3 MEQ/L (3.5-5.1) White Blood Count 4.5 TH/MM3 (4.0-11.0) Red Blood Count 3.49 MIL/MM3 (4.00-5.30) Hemoglobin 11.3 GM/DL (11.6-15.3) Hematocrit 33.3 % (35.0-46.0) Mean Corpuscular Volume 95.4 FL (80.0-100.0) Mean Corpuscular Hemoglobin 32.5 PG (27.0-34.0) Mean Corpuscular Hemoglobin Concent 34.1 % (32.0-36.0) Red Cell Distribution Width 13.8 % (11.6-17.2) Platelet Count 209 TH/MM3 (150-450) Mean Platelet Volume 8.4 FL (7.0-11.0) Neutrophils (%) (Auto) 76.7 % (16.0-70.0) Lymphocytes (%) (Auto) 8.2 % (9.0-44.0) Monocytes (%) (Auto) 6.5 % (0.0-8.0) Eosinophils (%) (Auto) 8.2 % (0.0-4.0) Basophils (%) (Auto) 0.4 % (0.0-2.0) Neutrophils # (Auto) 3.4 TH/MM3 (1.8-7.7) Lymphocytes # (Auto) 0.4 TH/MM3 (1.0-4.8) Monocytes # (Auto) 0.3 TH/MM3 (0-0.9) Eosinophils # (Auto) 0.4 TH/MM3 (0-0.4) Basophils # (Auto) 0.0 TH/MM3 (0-0.2) CBC Comment AUTO DIFF Differential Total Cells Counted 100 Neutrophils % (Manual) 27 % (16-70) Band Neutrophils % 33 % (0-6) Lymphocytes % 5 % (9-44) Monocytes % 5 % (0-8) Eosinophils % 8 % (0-4) Neutrophils # (Manual) 3.7 TH/MM3 (1.8-7.7) Metamyelocytes 22 % (0-1) Differential Comment FINAL DIFF MANUAL Atypical Lymphocytes % (0-0) Toxic Vacuolation PRESENT (NONE SEEN) Platelet Estimate NORMAL (NORMAL) Platelet Morphology Comment NORMAL (NORMAL) Red Cell Morphology Comment NORMAL (NORMAL) Blood Urea Nitrogen 15 MG/DL (7-18) Creatinine 0.56 MG/DL (0.50-1.00) Random Glucose 77 MG/DL (74-106) Total Protein 5.2 GM/DL (6.4-8.2) Albumin 2.0 GM/DL (3.4-5.0) Calcium Level 7.3 MG/DL (8.5-10.1) Alkaline Phosphatase 78 U/L (45-117) Aspartate Amino Transf (AST/SGOT) 31 U/L (15-37) Alanine Aminotransferase (ALT/SGPT) 14 U/L (10-53) Total Bilirubin 0.5 MG/DL (0.2-1.0) Chloride Level 133 MEQ/L (98-107) Carbon Dioxide Level 21.1 MEQ/L (21.0-32.0) Anion Gap 7 MEQ/L (5-15) Estimat Glomerular Filtration Rate 121 ML/MIN (>89) Protein Corrected Calcium 8.3 MG/DL (8.5-10.1) Total Creatine Kinase 49 U/L (26-192) Test 07/29/17 21:28 07/30/17 02:30 07/30/17 05:13 07/30/17 12:30 Potassium Level 2.5 MEQ/L (3.5-5.1) 3.6 MEQ/L (3.5-5.1) 3.5 MEQ/L (3.5-5.1) Serum Osmolality 323 MOSM/KG (275-295) 325 MOSM/KG (275-295) 321 MOSM/KG (275-295) Blood Gas Puncture Site LU Blood Gas Patient Temperature 98.6 Blood Gas HCO3 16 mmol/L (22-26) Blood Gas Base Excess -10.0 mmol/L (-2-2) Blood Gas Oxygen Saturation 96 % (90-100) Arterial Blood pH 7.23 (7.380-7.420) Arterial Blood Partial Pressure CO2 40 mmHg (38-42) Arterial Blood Partial Pressure O2 113 mmHg (61-120) Arterial Blood Oxygen Content 14.0 Vol % (12.0-20.0) Arterial Blood Carboxyhemoglobin 0.8 % (0-4) Arterial Blood Methemoglobin 1.2 % (0-2) Blood Gas Hemoglobin 10.3 G/DL (12.0-16.0) Oxygen Delivery Device VENTILATOR Blood Gas Ventilator Setting SEE COMMENT Blood Gas Inspired Oxygen 50 % White Blood Count 7.2 TH/MM3 (4.0-11.0) Red Blood Count 3.24 MIL/MM3 (4.00-5.30) Hemoglobin 10.7 GM/DL (11.6-15.3) Hematocrit 31.0 % (35.0-46.0) Mean Corpuscular Volume 95.5 FL (80.0-100.0) Mean Corpuscular Hemoglobin 33.1 PG (27.0-34.0) Mean Corpuscular Hemoglobin Concent 34.6 % (32.0-36.0) Red Cell Distribution Width 14.3 % (11.6-17.2) Platelet Count 173 TH/MM3 (150-450) Mean Platelet Volume 8.6 FL (7.0-11.0) Blood Urea Nitrogen 15 MG/DL (7-18) Creatinine 0.67 MG/DL (0.50-1.00) Random Glucose 75 MG/DL (74-106) Total Protein 4.8 GM/DL (6.4-8.2) Calcium Level 7.4 MG/DL (8.5-10.1) Sodium Level 161 MEQ/L (136-145) 162 MEQ/L (136-145) Chloride Level 134 MEQ/L (98-107) Carbon Dioxide Level 18.6 MEQ/L (21.0-32.0) Anion Gap 8 MEQ/L (5-15) Estimat Glomerular Filtration Rate 98 ML/MIN (>89) Protein Corrected Calcium 8.7 MG/DL (8.5-10.1) Test 07/30/17 19:56 07/31/17 05:24 Urine Random Sodium 149 MEQ/L Phosphorus Level 5.9 MG/DL (2.5-4.9) Magnesium Level 1.9 MG/DL (1.5-2.5) Blood Urea Nitrogen 20 MG/DL (7-18) Creatinine 0.78 MG/DL (0.50-1.00) Random Glucose 68 MG/DL (74-106) Calcium Level 7.5 MG/DL (8.5-10.1) Sodium Level 158 MEQ/L (136-145) Potassium Level 4.1 MEQ/L (3.5-5.1) Chloride Level 127 MEQ/L (98-107) Carbon Dioxide Level 20.2 MEQ/L (21.0-32.0) Anion Gap 11 MEQ/L (5-15) Estimat Glomerular Filtration Rate 82 ML/MIN (>89) Serum Osmolality 319 MOSM/KG (275-295) Result Diagram: 07/30/17 0513 07/31/17 0524 Imaging Last Impressions Chest X-Ray 07/30/17 0000 Signed Impressions: Service Date/Time: July 20:45 - CONCLUSION: No significant interval change Rohan Montenegro MD Abdomen X-Ray 07/29/17 0600 Signed Impressions: Service Date/Time: Saturday, July 29, 2017 02:13 - CONCLUSION: Distended stomach or possibly distended colon in the mid abdomen. Eduardo Casanova MD Head CT 07/25/17 0000 Signed Impressions: Service Date/Time: Tuesday, July 25, 2017 15:05 - CONCLUSION: Post surgical findings the left frontal region with decrease in size of left sided parenchymal hemorrhage. Surgical drain now in place. Intraventricular hemorrhage component again seen. Michel Phillips MD Procedures 07/24/17: intubation, right IJ central line placement. 07/24/17: left frontotemporal craniotomy with cerebral hematoma evacuation; ventriculostomy placement 07/26/17: intravascular temperature management right femoral vein catheter placement . Patient/Family Conference Present at Family Conference: Met with family including: , Zbigniew; daughter, Jacklyn; mother, Amina; son , Yifan; nephew, Roshan and his Enma; brother, Steven and his Victoria. Also present LAVERNE Delcid. . Family Conference Time (mins): 60 Family Conference Location: Consult Room Issues Discussed: * Palliative care role, purpose, approach * Additional medical, psychosocial, and spiritual history * Patients general health, functional status, and cognitive changes in the months leading up to the current hospitalization * Patient/family understanding of the current medical problems * Patient/family understanding of prognosis * Patients goals of care as best understood from advance directives and/or conversations and/or values * Current medical treatment options and benefits/burdens of those options * Likely scenarios comparing ongoing aggressive care with a transition to comfort measures only * Questions answered to the best of my ability * Palliative care contact information provided In summary, family has a good understanding of the extent of injury, critical illness, unlikely that patient will survive this hospitalization, possible progression to brain . Family is appropriately tearful. Family verbalizes that patient would not want to live like this, they elected NO CODE status. Introduced the possibility of transition to comfort focused care and withdrawal of life support, they are not yet ready to make this decision. Provided information regarding children's grief services as the patient has to minor children. Reviewed some information on how to speak to children regarding critical/ terminal illness of a parent. I suspect family will need some time to absorb this information. Offered support. . Assessment and Plan Disease Oriented Problem List: (1) Intracranial hemorrhage Comment: s/p crani and ventriculostomy placement . (2) Acute respiratory failure (3) Acute encephalopathy (4) Hypertensive emergency Symptom Scale: (1) Pain 0-10 Scale: Unable to quantify Comment: unresponsive off sedation. . (2) Dyspnea 0-10 Scale: Unable to quantify [facility] . Pertinent Non-Medical Issues Psychosocial: . 4 children. 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 Spiritual: Caodaism tressa. has visited per family request. Legal: Patient is not capacitated to make her own health care decisions, she will not regain capacity. No written advanced directives. According to [place] statutes, health care proxy decision making falls to her spouse. Ethical issues impacting care: No known concerns at this time. . Important Contacts * Zbigniew Pittman, spouse: [phone] * Jacklyn, daughter: [phone] * Amina, mother: . Prognosis Per co founder and president: "Overall impression: Patient remains critically ill s/p rescue decompression large left brain parenchymal hematoma and persistent cerebral edema. Hypothermia and maximum medical therapy to reduce edema is operative. Now with ongoing neurological deterioration and unstable" Code Status: No Code Plan * Patient is not capacitated to make her own health care decisions, she will not regain capacity. No written advanced directives. According to [place] statutes, health care proxy decision making falls to her spouse, Zbigniew. * NO CODE * Palliative care family meeting: In summary, family has a good understanding of the extent of injury, critical illness, unlikely that patient will survive this hospitalization, possible progression to brain . Family is appropriately tearful. Family verbalizes that patient would not want to live like this, they elected NO CODE status. Introduced the possibility of transition to comfort focused care and withdrawal of life support, they are not yet ready to make this decision. Provided information regarding children's grief services as the patient has to minor children. Reviewed some information on how to speak to children regarding critical/ terminal illness of a parent. I suspect family will need some time to absorb this information. Offered support. * SYMPTOMS: PAIN: patient does not appear painful, given extent of brain injury , possible progression to brain is uncertain if she can even feel pain at this time. Family is concerned about her suffering or feeling pain. I've advised them to ask the medical team if they see any signs of pain to request that she be medicated. DYSPNEA: remains on mechanical ventilation, not breathing over ventilator. Seizure: secondary to ICH, surgery, edema, brain damage. Remains on Keppra. PRN lorazepam available. No evidence of seizure at this time. No new medication recommendations at this time. * Palliative care number provided. * Palliative care will continue to follow to assist with clarification of goals and symptom management. . Thank you for the opportunity to participate in the care of Ms. Pittman. Attestation To help prompt me to consider important information that might be impacting today's encounter and assessment, information from prior notes written by myself or my colleagues may have been "brought forward" into today's note. My signature on this note, however, is an attestation that I personally performed the exam, history, and/or decision-making noted today, and, unless otherwise indicated, the interactions with patient, family, and staff as well as the review of records all occurred today. I also attest that the listed assessment and stated plan reflect my best clinical judgment today based on the combination of historical information, prior notes, and today's exam/ interactions. When time spent is documented, it refers only to time spent today by the signer, or if indicated, combined time spent today by collaborating physician/nurse practitioner. . Tiara Marino Jul 31, 2017 11:00
[2017-07-31] MEDS: SODIUM BICARBONATE 8.4% INJ 100 MEQ in WATER STERILE FOR INJ 850 ML IV SCH (11:16)
[2017-07-31] MEDS: VASOPRESSIN 40 U/D5W 100 ML Titrate IV PRN ×2 (14:14)
[2017-08-01] VITALS (12 sets, daily range): BP systolic 66–126; BP diastolic 30–103; PULSE 105–119; RESP 18–23; TEMP 98.4–101.7; O2SAT 80–96
[2017-08-01] MEDS: SODIUM BICARBONATE 8.4% INJ 100 MEQ in WATER STERILE FOR INJ 850 ML IV SCH ×2
[2017-08-01] MEDS: LACTULOSE SYRUP 20 GM/30 ML CUP NG SCH ×3 (00:07→16:11)
[2017-08-01] MEDS: ARTIFICIAL TEARS OPTH SOLN 15 ML BTL EACH EYE SCH ×2 (00:07→06:00)
[2017-08-01] MEDS: RESP: ALBUTEROL 2.5 MG/IPRATROPIUM 0.5 MG NEB (SCH) NEB ×2 (03:14→08:02)
[2017-08-01] MEDS: CHLORHEXIDINE GLUCONATE 2 % 1 PACK (2 CLOTHS) TOP SCH (04:00)
[2017-08-01] MEDS: SODIUM CHLORIDE 23.4% INJ 154 MEQ in DEXTROSE 10% INJ 1,000 ML IV SCH (04:26)
[2017-08-01] MEDS: METOCLOPRAMIDE HCL 10 MG/2 ML VIAL IV PUSH SCH ×2 (05:44→16:12)
[2017-08-01] MEDS: MANNITOL 12.5 GM/50 ML VIAL IV SCH ×2 (06:00→16:11)
[2017-08-01] MEDS: INSULIN NovoLIN REGULAR SUPPLEMENTAL SCALE SQ SCH ×3 (06:00→12:00)
[2017-08-01] MEDS: NOREPINEPHRINE INJ 8 MG in SODIUM CHLOR 0.9% 250 ML INJ 242 ML IV PRN ×2 (08:00→15:13)
[2017-08-01] MEDS: CHLORHEXIDINE 0.12% (ORAL KIT) 15 ML CUP MT SCH (08:00)
--- NOTE | 2017-08-01 08:34 | HHI.CCPN ---
Subjective Remarks/Hospital Course Patient is a 41-year-old female, with possible history of hypertension , alcohol abuse who was brought to the [place] emergency department as a stroke alert. Apparently EMS was called after patient was found severely altered by with weakness on the right side. Initial blood pressure was 250s over 150. Patient started to seize and 2 mg Ativan given. Attempted intubation failed due to clenched jaw intubation. EMS gave lidocaine preparation for intubation. GCS 3 at scene and in ED. 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 Her initial BP in ED was 284/170. Patient was intubated by Dr. Rangel and was placed on propofol infusion, Cardene was initiated for blood pressure control. A stat CT of the head showed more than 5 cm intraparenchymal hemorrhage overlying left parietal left thalamus and left mesencephalon, with 1.3 cm left- to-right midline shift. Her intracranial hemorrhage most likely secondary to hypertensive emergency and not trauma or assualt related I evaluated the patient immediately in the emergency department. On my exam patient is comatose on the vent as received propofol boluses and currently is on nicardipine 5 mg per hour for blood pressure control. Right pupil is 5 mm left is 6 both and nonreactive . Patient shows extensive posturing to painful stimuli. Patient has received 25 g of mannitol, additional 12.5 mg ordered by neurosurgeon. Current SBP 270, I instructed the RN immediately give 50 mg propofol bolus, 100 g fentanyl bolus, and increase nicardipine infusion to 20 mg per hour. I also ordered as needed hydralazine and also sodium nitroprusside infusion in case we cannot control her blood pressure adequately. Dr. Hill arrived at the ED and the case was extensively discussed with him. The patient has suffered a devastating intracranial hemorrhage with poor chance of survival, however due to relatively young age Dr. Hill has offered significant for evacuation of the bleed. Prognosis remained poor even with surgery 07/25: Ventriculostomy clotted off overnight. Will be replaced as AM. Currently on midazolam, propofol and fentanyl drips for sedation. Last ICP was 7-11 per RN. Initiate tube feeding and bowel regimen today. 07/26: Patient continues with bilateral ventriculostomies. Overnight received 1 dose of hypertonic saline and potassium. ICP is currently 25. Started on cisatracurium remain elevated. Discussed with Dr. Hill. We will place cooling catheter. 07/27: ICP is currently at 16. Ventilator adjusted. Remains on maximum sedation with propofol, fentanyl, midazolam and paralyzed with cisatracurium and intravascularly cooled to 34C. Remains on trickle feeds. No bowel movement. Subjective 07/28: ICP is currently at 13. Received 1 dose of metal overnight due to elevated ICP around 30. Ventilator adjusted for end tidal CO2. Not tolerating tube feeding. Increasing metoclopramide 10 mg IV every 8 hours. Remains paralyzed and involving a intravascular cooling device for targeted temperature management. 07/29: ICP 15 - 22 range. Na 161, osmolality > 330. EtCO2 at lower level normal range. Heavily sedated, large analgesia dose. Relaxant to prevent shivering while hypothermia continues. This is maximal therapy for all intents and purposes. 07/30: ICP control acceptable. Temp now 97. Stop relaxant, wean sedation. 07/31: Pupils dilated. Unable to control ICP. Unresponsive. 08/01: Pupils fixed at 6 mm. No cough, gag, or corneal reflexes. Will send for cerebral flow study - suspect brain . Objective Vital Signs Date Time Temp Pulse Resp B/P (MAP) Pulse Ox O2 Delivery O2 Flow Rate FiO2 08/01/17 08:03 91 100 08/01/17 06:00 116 08/01/17 04:00 98.4 23 126/103 (111) 07/30/17 07:00 Mechanical Ventilator Intake and Output 08/01/17 08/01/17 08/02/17 08:00 16:00 00:00 Intake Total 1000 ml Output Total 1560 ml Balance -560 ml Result Diagram: 07/30/17 0513 07/31/17 0524 Imaging Last Impressions Chest X-Ray 07/27/17 0600 Signed Impressions: Service Date/Time: Thursday, July 27, 2017 03:42 - CONCLUSION: Left basilar opacity is present may be due to a combination of consolidation and or pleural effusion and probable mild pulmonary edema. Eduardo Casanova MD Head CT 07/25/17 0000 Signed Impressions: Service Date/Time: Tuesday, July 25, 2017 15:05 - CONCLUSION: Post surgical findings the left frontal region with decrease in size of left sided parenchymal hemorrhage. Surgical drain now in place. Intraventricular hemorrhage component again seen. Michel Phillips MD Objective Remarks GENERAL: 41-year-old female unresponsive on the vent, orotracheal intubation. SKIN: Cool and dry. Evolving bruises on trunk and extremities including the left face HEAD: Status post left temporoparietal craniotomy with ventriculostomy placed bilaterally. Serosanguineous CSF, now clearing. EYES: Right pupil 6 mm and nonreactive left is 6 mm and nonreactive ENT: Orotracheally intubated, NECK: Trachea midline. Right IJ is clean dry and intact CARDIOVASCULAR: RRR. S1, S2. No JVD. RESPIRATORY: Few crackles both bases, good bilateral air movement. Symmetrical excursion. GASTROINTESTINAL: Abdomen soft, non-tender, nondistended. Few bowel sounds are appreciated MUSCULOSKELETAL: Old appearing bruises on anterior pretibial regions. 1+ bilateral upper and lower extremity edema. Quattro catheter right femoral is clean dry and intact, used for lines, hypothermia off. NEUROLOGICAL: GCS 3T. No gag. No cough. No corneals or Doll's Eyes. Pupils 6 mm , no reaction. Date of Insertion: Jul 24, 2017 Line: Central Venous Catheter Side: Right Location: Internal, Jugular A/P Assessment and Plan NEURO/PSYCH: Severe left basal ganglia and thalamic hemorrhage with intraventricular extension 1.3 cm [id number] midline shift Severe acute encephalopathy Alcohol abuse THC -Postop left frontal temporal craniotomy with ventriculostomy replacement with evacuation of hematoma Dr. Hill - Postop day #2 right frontal wesley hole/ventriculostomy placement -Currently on mannitol 25 g IV every 8. Hold if serum osm greater than 315. Currently 320 - Keep Na above 145 in less than 155 3% saline. Currently off as sodium is 161 -Levetiracetam 500 mg IV twice a day 7 days for seizure prophylaxis -Currently on propofol at 70 mcg/kg per minute, fentanyl drip at 350 grams an hour and midazolam @ 12 milligrams an hour for sedation/analgesia while intubated for sedation and vent synchrony Currently on cisatracurium drip at 4 mcg/kg per minute to maintain train-of- four 1 out of 4 - End tidal CO2 35-40 -adjust 30-35 for elevated ICPs - Right Ventriculostomy -0 Cm H2O 46 cc ss left ventriculostomy 0 cm H2O 43 cc with ss - Follow up CT head in 07/25 revealed interval craniotomy. Surgical drain is in place in the region of the left basal ganglia. There's been interval decrease in size of parenchymal hemorrhage in this area now measuring 4.1 x 2.5 cm compared to 5.2 x 4.8 cm. Decrease in [id number] midline shift, now measuring 5 mm compared to 14 mm on the prior study. Persistent extensive intraventricular component of hemorrhage involving the anterior and posterior horns of lateral ventricles as well as the third ventricle and fourth ventricle. - Supplement multivitamin thiamine and folic acid and multivitamin daily - Further recommendation per Dr. Hill - 07/26 - status post 9.3 Yi 45 cm Quattro intravascular temperature management catheter to maintain induce hypothermia 34C - 07/29 Temp 92-93. RESP: Acute respiratory failure - PRVC 20/550/1.05/ - vent bundle -Albuterol/ipratropium aerosols every 6 hours scheduled and when necessary albuterol aerosols every 2 hours as needed dyspnea No spontaneous breathing trials while on continuous paralytic - Chest x-ray 07/27 revealed worsening aeration left lower lobe and possible small pleural effusion. CV: Hypertensive emergency - resolved Currently on norepinephrine drip at 12 mics grams per minute to maintain cerebral perfusion pressure greater than 65 - As needed nicardipine infusion, hydralazine 20 mg IV every 4 hours when necessary to keep SBP less than 150 diastolic blood pressure less than 90 - 2-D echo if patient makes meaningful recovery GI: Hypoalbuminemia Ileus Start on vital 1.5 goal 45 cc an hour at currently 10 cc an hour High residuals start metoclopramide 10 mill grams IV every 8 hours Lansoprazole 30 mg daily for GI prophylaxis Docusate sodium 100 twice a day, senna 8.6 mg twice a day for bowel regimen. Add polyethylene glycol 17 g twice a day and lactulose 30 cc 4 times daily. Glycerin suppository 1 today. Methylnaltrexone 12 mg subcutaneous 1 today. Check abdominal x-ray. Ileus oersists with no meaningful gastric emptying - place NG to suction until rewarmed. : - Monitor renal function closely. Foster catheter. IV hydration as above ID: - Perioperative antibiotics per Dr. Hill - Monitor for infection Blood cultures 2, sputum 07/26 no growth to date HEME: Normocytic anemia Thrombocytopenia - Monitor CBC, CMP, coags ENDO: Sliding-scale insulin with Novulin R with Accu-Cheks every 6 hours to maintain euglycemia/moderate regimen FEN: Hypernatremia Hypo-potassium Hypophosphatemia Hypo-magnesium Replace electrolytes as clinically indicated per ICU electrolyte protocol PROPH: - Bilateral lower extremity SCDs. Pharmacological DVT prophylaxis is contraindicated due to intracranial hemorrhage. Lansoprazole for GI prophylaxis Overall impression: Patient remains critically ill s/p rescue decompression large left brain parenchymal hematoma and persistent cerebral edema. Hypothermia and maximum medical therapy to reduce edema attempted. Now with ongoing neurological deterioration and unresponsive. Appears to have herniated. Critical Care 44 mins Pj Marquez MD Aug 01, 2017 08:34
[2017-08-01] MEDS: SODIUM CHLORIDE 0.9% FLUSH 10 ML FLUSH IV FLUSH SCH (09:00)
[2017-08-01] MEDS: MULTIVITAMIN INJ 10 ML, THIAMINE INJ 100 MG, FOLIC ACID INJ 1 MG in SODIUM CHLORID 0.9%... IV SCH (09:00)
--- NOTE | 2017-08-01 10:01 | HHI.NSPN ---
(Carlos Eduardo Lockhartcharissa GALLOWAY) History Chief Complaint: Unable to obtain due to patient's clinical condition. (RichyValentin GALLOWAY) Interval History 41-year-old female who was found unresponsive with vomit and agonal respirations. EMS was summoned and brought the patient to the [facility] Emergency Room. EMS was unable to intubate her and she was intubated on arrival to the emergency room. Edy coma Score was 3 at the scene and after intubation resuscitation improved to 4 with dilated pupils, left larger than right. 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 That is when he called the EMS. She does have a history of hypertension but has not been taking any medications and does not check her blood pressure regularly. CT scan of the head obtained reveals a large left basal ganglia hemorrhage that extends into the thalamus as well as the lateral ventricle with about a centimeter [id number] midline shift. The hematoma measures about 5.8 cm in dimension. Her initial blood pressure was 270/136 and she has been placed on a Cardene drip along with Diprivan and has received mannitol also. 07/25/17: Pt sedated on Diprivan, Fentanyl, and Versed drips. Left pupil 3mm right 2mm NR bilaterally. No response to pain in upper chest. Ventriculostomy drain in place with blood, no waveform. 07/26/17: Pt heavily sedated on Diprivan, Fentanyl, and Versed drips. Left pupil 3mm right 2mm NR bilaterally. No response to pain. Ventriculostomy in place bilaterally. Right ventriculostomy drain with good ICP waveform. Pt requiring prn medications in addition to drips listed to keep ICP less than 20. 07/28/17: Pt heavily sedated on Diprivan, Fentanyl, Versed and Nimbex drips. ICPs currently controlled at 12. Left pupil 4mm NR, right 2mm NR. Bilateral ventriculotomy drains in place draining blood tinges CSF. 07/29/17: Pt remains heavily sedated on Diprivan, Fentanyl, Versed and Nimbex drips. ICPs 10-11 range. Bilateral ventriculostomy drains in place. 07/30/17: Pt sedated on Diprivan, Fentanyl, and Versed drips. Nimbex was weaned off. ICP 15. Pt on Norepinephrine and Vasopressin. Bilateral ventriculostomy drains in place. 07/31/17: Pt had a Neuro change early this morning with dilated pupils and ICPs in the 30s and 40s. Pt has been taken off all her sedative drips this morning since the neuro change. Pupils are 8mm bilaterally. NR bilaterally. 08/01: The patient continues to have a poor neuro exam that is consistent with brain . The [employer] has ordered a cerebral blood flow study. She is on multiple vasopressors for blood pressure support. Palliative Care was consulted and met with the family yesterday who made her a DNR no code. (Valentin Lockhart) System Review Comments Unable to obtain due to patient's clinical condition. (Valentin Lockhart) Exam Results 07/30/17 07/30/17 07/31/17 07/31/17 08/01/17 08/01/17 06:00 18:00 06:00 18:00 06:00 18:00 Intake Total 3522 ml 1810 ml 1895 ml 3660 ml 2000 ml Output Total 1085 ml 778 ml 2485 ml 2204 ml 1560 ml Balance 2437 ml 1032 ml -590 ml 1456 ml 440 ml Intake IV Total 3442 ml 1750 ml 1775 ml 3660 ml 2000 ml Other 80 ml 60 ml 120 ml Output Urine Total 650 ml 500 ml 2050 ml 1700 ml 1500 ml Gastric Drainage Total 350 ml 200 ml 350 ml 450 ml 50 ml Drainage Total 85 ml 78 ml 85 ml 54 ml 10 ml # Bowel Movements 0 0 0 0 0 Vital Signs Date Time Temp Pulse Resp B/P (MAP) Pulse Ox O2 Delivery O2 Flow Rate FiO2 08/01/17 08:03 91 100 08/01/17 06:00 116 08/01/17 04:04 95 90 08/01/17 04:00 98.4 114 23 126/103 (111) 90 08/01/17 04:00 112 08/01/17 04:00 80 08/01/17 02:00 114 08/01/17 01:02 94 80 08/01/17 00:00 99.0 105 23 117/69 (85) 96 08/01/17 00:00 80 08/01/17 00:00 105 07/31/17 22:00 120 07/31/17 20:27 96 80 07/31/17 20:00 120 07/31/17 20:00 80 07/31/17 20:00 99.1 116 23 148/115 (126) 95 07/31/17 18:57 117 170/108 07/31/17 18:45 112 184/124 07/31/17 18:45 112 184/124 07/31/17 18:25 105 164/111 07/31/17 18:00 105 07/31/17 16:45 96 158/109 07/31/17 16:45 96 158/109 07/31/17 16:34 100 80 07/31/17 16:00 99.0 96 23 143/100 (114) 96 Arterial Line 07/31/17 16:00 96 07/31/17 16:00 80 07/31/17 15:15 97 158/109 07/31/17 15:00 97 151/103 07/31/17 14:14 98 155/96 07/31/17 14:14 98 155/96 07/31/17 14:14 101 145/92 07/31/17 14:00 98 07/31/17 12:00 98.4 102 24 114/65 (81) 96 07/31/17 12:00 80 07/31/17 12:00 102 07/31/17 11:44 97 80 07/31/17 10:39 85 133/77 07/31/17 10:38 85 133/77 07/31/17 10:00 85 07/31/17 08:57 99 90 07/31/17 08:00 97.7 83 24 130/79 (96) 94 07/31/17 08:00 84 07/31/17 08:00 100 07/31/17 06:00 100 07/31/17 06:00 83 07/31/17 04:07 90 100 07/31/17 04:00 86 07/31/17 04:00 96.4 90 21 112/67 (82) 93 07/31/17 04:00 100 07/31/17 03:43 82 98/56 07/31/17 02:34 81 100/54 07/31/17 02:12 82 104/63 07/31/17 02:00 82 07/31/17 01:10 93 100 07/31/17 00:00 80 07/31/17 00:00 96.1 81 21 119/72 (88) 93 07/31/17 00:00 100 07/30/17 22:00 80 07/30/17 21:42 81 120/71 07/30/17 21:00 82 102/60 07/30/17 20:10 90 100 07/30/17 20:10 89 100 07/30/17 20:00 82 07/30/17 20:00 100 07/30/17 20:00 96.4 82 21 106/62 (77) 93 07/30/17 20:00 82 98/54 07/30/17 20:00 82 108/64 07/30/17 19:00 83 112/65 07/30/17 18:49 78 88/49 07/30/17 18:00 81 07/30/17 17:43 78 115/71 07/30/17 17:27 92 80 07/30/17 16:00 60 07/30/17 16:00 78 07/30/17 16:00 97.1 78 21 110/66 (81) 96 07/30/17 15:57 77 114/69 07/30/17 14:00 78 07/30/17 13:31 96 60 07/30/17 12:00 97.1 80 21 116/70 (85) 95 07/30/17 12:00 80 07/30/17 12:00 60 07/30/17 10:00 73 07/30/17 09:58 74 115/69 07/30/17 09:55 96 60 07/30/17 08:00 73 07/30/17 08:00 97.1 73 21 105/62 (76) 94 07/30/17 08:00 60 07/30/17 07:00 Mechanical Ventilator 60 07/30/17 06:04 76 117/64 07/30/17 06:00 73 07/30/17 05:20 81 100/63 07/30/17 04:55 77 106/64 07/30/17 04:00 97.1 79 21 118/69 (85) 95 07/30/17 04:00 76 07/30/17 04:00 60 07/30/17 03:20 97 50 07/30/17 02:00 75 07/30/17 01:33 76 111/69 07/30/17 00:00 96.6 78 20 118/71 (87) 96 07/30/17 00:00 50 07/30/17 00:00 78 07/29/17 23:22 100 50 07/29/17 23:22 96 50 07/29/17 23:00 78 118/70 07/29/17 22:08 97 50 07/29/17 22:00 81 07/29/17 20:45 74 126/71 07/29/17 20:00 95.7 73 20 132/71 (91) 97 07/29/17 20:00 50 07/29/17 20:00 73 07/29/17 19:20 97 50 07/29/17 19:20 97 50 07/29/17 19:00 97 Mechanical Ventilator 50 07/29/17 18:00 72 07/29/17 17:56 73 126/68 07/29/17 16:00 75 07/29/17 16:00 50 07/29/17 16:00 94.6 73 20 116/62 (80) 96 07/29/17 15:45 73 91/49 07/29/17 15:15 71 97/50 07/29/17 15:05 71 105/53 07/29/17 14:57 96 50 07/29/17 14:55 71 105/53 07/29/17 14:54 71 105/53 07/29/17 14:00 71 07/29/17 13:00 73 104/54 07/29/17 12:34 73 104/54 07/29/17 12:00 93.4 73 20 105/55 (72) 96 07/29/17 12:00 73 07/29/17 12:00 50 07/29/17 12:00 73 103/55 07/29/17 11:39 97 50 07/29/17 11:30 73 105/55 07/29/17 10:30 73 106/56 07/29/17 10:15 71 103/54 07/29/17 10:00 73 07/29/17 09:50 71 104/54 (Valentin Lockhart) Physical Examination GENERAL: Comatose, no sedation, on multiple vasopressors for blood pressure support. HEENT: Pupils fixed & dilated. Orally intubated. OGT. MUSCULOSKELETAL: No movement to extremities, no evident clubbing or deformity. NEUROLOGICAL: Comatose, no sedation. No eye opening to voice or noxious stimulation. Pupil fixed & dilated. No cough reflex. No corneal reflex. No muscle movement with any extremity to command or with local or central noxious stimulation. Bilateral ventriculostomy drains at 0 cm H2O pressure w/blood-tinged CSF. (Valentin Lockhart) Lab, Micro, Other Results Recent Impressions Chest X-Ray 07/30/17 0000 Signed Impressions: Service Date/Time: July 20:45 - CONCLUSION: No significant interval change Rohan Montenegro MD Laboratory Tests Test 07/29/17 21:28 07/30/17 02:30 07/30/17 05:13 07/30/17 12:30 Potassium Level 2.5 MEQ/L 3.6 MEQ/L 3.5 MEQ/L Serum Osmolality 323 MOSM/KG 325 MOSM/KG 321 MOSM/KG Blood Gas Puncture Site LU Blood Gas Patient Temperature 98.6 Blood Gas HCO3 16 mmol/L Blood Gas Base Excess -10.0 mmol/L Blood Gas Oxygen Saturation 96 % Arterial Blood pH 7.23 Arterial Blood Partial Pressure CO2 40 mmHg Arterial Blood Partial Pressure O2 113 mmHg Arterial Blood Oxygen Content 14.0 Vol % Arterial Blood Carboxyhemoglobin 0.8 % Arterial Blood Methemoglobin 1.2 % Blood Gas Hemoglobin 10.3 G/DL Oxygen Delivery Device VENTILATOR Blood Gas Ventilator Setting SEE COMMENT Blood Gas Inspired Oxygen 50 % White Blood Count 7.2 TH/MM3 Red Blood Count 3.24 MIL/MM3 Hemoglobin 10.7 GM/DL Hematocrit 31.0 % Mean Corpuscular Volume 95.5 FL Mean Corpuscular Hemoglobin 33.1 PG Mean Corpuscular Hemoglobin Concent 34.6 % Red Cell Distribution Width 14.3 % Platelet Count 173 TH/MM3 Mean Platelet Volume 8.6 FL Blood Urea Nitrogen 15 MG/DL Creatinine 0.67 MG/DL Random Glucose 75 MG/DL Total Protein 4.8 GM/DL Calcium Level 7.4 MG/DL Sodium Level 161 MEQ/L 162 MEQ/L Chloride Level 134 MEQ/L Carbon Dioxide Level 18.6 MEQ/L Anion Gap 8 MEQ/L Estimat Glomerular Filtration Rate 98 ML/MIN Protein Corrected Calcium 8.7 MG/DL Test 07/30/17 19:56 07/31/17 05:24 08/01/17 05:20 Urine Random Sodium 149 MEQ/L 72 MEQ/L Phosphorus Level 5.9 MG/DL Magnesium Level 1.9 MG/DL Blood Urea Nitrogen 20 MG/DL Creatinine 0.78 MG/DL Random Glucose 68 MG/DL Calcium Level 7.5 MG/DL Sodium Level 158 MEQ/L Potassium Level 4.1 MEQ/L Chloride Level 127 MEQ/L Carbon Dioxide Level 20.2 MEQ/L Anion Gap 11 MEQ/L Estimat Glomerular Filtration Rate 82 ML/MIN Serum Osmolality 319 MOSM/KG (Valentin Lockhart) Medical Decision Making Impression and Plan Impression: 1. 41 y/o FM with large left basal ganglia / thalamic hemorrhage with extension into the ventricle and associated mass effect and midline shift with very poor neurologic examination and consistent with a transtentorial herniation. s/p Left frontotemporal craniotomy with cerebral hematoma evacuation; ventriculostomy placement; microsurgical technique on 07/24/17 2. Unregulated hypertension, which is likely the source of the current bleed. 3. Alcohol abuse. Patient remains comatose, exam appears consistent with brain . Plan: Primary management per [employer]. Discussed patient with Nursing. Continue with supportive care at present. Cerebral blood flow study pending. Appreciate Palliative Care assistance with this unfortunate patient's family. (Valentin Lockhart) Attending Statement The exam, history, and the medical decision-making described in the above note were completed with the assistance of the mid-level provider. I reviewed and agree with the findings presented. I attest that I had a [id number] encounter with the patient on the same day, and personally performed and documented my assessment and findings in the medical record. The patient remains intubated. No intravenous sedation today Respirations are clear to auscultation Cardiac regular without murmur Moderate diffuse extremity edema Abdomen soft, nondistended External ventricular drain in place without any output returned to drain reservoir lowered beneath the head. Neurologic: No eye opening to voice, deep pain, or spontaneous Pupils are 6-7 mm nonreactive Absent corneal, oculocephalic, and oculovestibular responses No cough or gag with endotracheal tube manipulation or deep suctioning No spontaneous respirations No facial grimacing to deep pain No extremity movement to deep pain over the chest or extremities No response to voice or command Cerebral blood flow study reveals no cerebral perfusion, consistent with brain Discussed with electromechanic Discussed with patient's in the room today No sign of brain stem or cortical function on examination. No sign of blood flow to the brain and brainstem on several blood flow study. Patient remains on 3 pressors, with systolic blood pressure in the 60s. Due to the low blood pressure, unable to meet full criteria for brain . However the patient is in terminal condition with no reasonable chance of meaningful recovery. Discussed at length with the patient's and all questions answered. He appears understand the above. (James Grimaldo MD) Valentin Lockhart Aug 01, 2017 10:01 James Grimaldo MD Aug 01, 2017 14:26
[2017-08-01 10:26] LABS: PHOSPHORUS 7.5 MG/DL (2.5-4.9)
[2017-08-01 10:27] LABS: ALBUMIN 1.3 GM/DL (3.4-5.0); DIRECT BILIRUBIN ADULT 0.3 MG/DL (0.0-0.2); INDIRECT BILIRUBIN 0.2 MG/DL (0.0-0.8); TOTAL BILIRUBIN ADULT 0.5 MG/DL (0.2-1.0); TOTAL PROTEIN 4.7 GM/DL (6.4-8.2)
[2017-08-01] MEDS: DEXTROSE 50% IN WATER 50 ML VIAL(D50) IV PUSH PRN ×2 (10:35→11:14)
[2017-08-01] MEDS: PHENYLEPHRINE INJ 160 MG in SODIUM CHLORID 0.9% 500 ML INJ 484 ML IV PRN (10:43)
[2017-08-01] MEDS: VASOPRESSIN 40 U/D5W 100 ML Titrate IV PRN ×2 (10:44)
--- NOTE | 2017-08-01 12:59 | RADRPT ---
EXAM DATE/TIME: 08/01/2017 11:58 [facility] COMPARISON: CT BRAIN W/O CONTRAST, July 25, 2017, 15:05. CT BRAIN W/O CONTRAST, July 24, 2017, 18:11. INDICATIONS : Intraparenchymal hemorrhage. DOSE: 25.3 mCi Tc99m DTPA IV The diagnosis of brain is clinical and the results of this test should be taken in the content of clinical and electrocephalographic data. MEDICAL HISTORY : Seizures. Hypertension. SURGICAL HISTORY : Unable to obtain. ENCOUNTER: Initial ACUITY: 3 days PAIN SCALE: Non-responsive LOCATION: Head. TECHNIQUE: Anterior dynamic imaging as well as delayed static imaging. FINDINGS: No activity is seen to enter the brain on the flow images. No activity is seen on the static images. CONCLUSION: No brain blood flow or brain uptake is seen. Rohan Flores MD on August 01, 2017 at 12:56 Board Certified Radiologist. This report was verified electronically.
--- NOTE | 2017-08-01 13:05 | HHI.CCPN ---
Subjective Remarks/Hospital Course Patient is a 41-year-old female, with possible history of hypertension , alcohol abuse who was brought to the [facility] emergency department as a stroke alert. Apparently EMS was called after patient was found severely altered by with weakness on the right side. Initial blood pressure was 250s over 150. Patient started to seize and 2 mg Ativan given. Attempted intubation failed due to clenched jaw intubation. EMS gave lidocaine preparation for intubation. GCS 3 at scene and in ED. 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 Her initial BP in ED was 284/170. Patient was intubated by Dr. Rangel and was placed on propofol infusion, Cardene was initiated for blood pressure control. A stat CT of the head showed more than 5 cm intraparenchymal hemorrhage overlying left parietal left thalamus and left mesencephalon, with 1.3 cm left- to-right midline shift. Her intracranial hemorrhage most likely secondary to hypertensive emergency and not trauma or assualt related I evaluated the patient immediately in the emergency department. On my exam patient is comatose on the vent as received propofol boluses and currently is on nicardipine 5 mg per hour for blood pressure control. Right pupil is 5 mm left is 6 both and nonreactive . Patient shows extensive posturing to painful stimuli. Patient has received 25 g of mannitol, additional 12.5 mg ordered by neurosurgeon. Current SBP 270, I instructed the RN immediately give 50 mg propofol bolus, 100 g fentanyl bolus, and increase nicardipine infusion to 20 mg per hour. I also ordered as needed hydralazine and also sodium nitroprusside infusion in case we cannot control her blood pressure adequately. Dr. Hill arrived at the ED and the case was extensively discussed with him. The patient has suffered a devastating intracranial hemorrhage with poor chance of survival, however due to relatively young age Dr. Hill has offered significant for evacuation of the bleed. Prognosis remained poor even with surgery 07/25: Ventriculostomy clotted off overnight. Will be replaced as AM. Currently on midazolam, propofol and fentanyl drips for sedation. Last ICP was 7-11 per RN. Initiate tube feeding and bowel regimen today. 07/26: Patient continues with bilateral ventriculostomies. Overnight received 1 dose of hypertonic saline and potassium. ICP is currently 25. Started on cisatracurium remain elevated. Discussed with Dr. Hill. We will place cooling catheter. 07/27: ICP is currently at 16. Ventilator adjusted. Remains on maximum sedation with propofol, fentanyl, midazolam and paralyzed with cisatracurium and intravascularly cooled to 34C. Remains on trickle feeds. No bowel movement. Subjective 07/28: ICP is currently at 13. Received 1 dose of metal overnight due to elevated ICP around 30. Ventilator adjusted for end tidal CO2. Not tolerating tube feeding. Increasing metoclopramide 10 mg IV every 8 hours. Remains paralyzed and involving a intravascular cooling device for targeted temperature management. 07/29: ICP 15 - 22 range. Na 161, osmolality > 330. EtCO2 at lower level normal range. Heavily sedated, large analgesia dose. Relaxant to prevent shivering while hypothermia continues. This is maximal therapy for all intents and purposes. 07/30: ICP control acceptable. Temp now 97. Stop relaxant, wean sedation. 07/31: Pupils dilated. Unable to control ICP. Unresponsive. 08/01: Pupils fixed at 6 mm. No cough, gag, or corneal reflexes. Will send for cerebral flow study - suspect brain . No flow on brain scan -> brain . Objective Vital Signs Date Time Temp Pulse Resp B/P (MAP) Pulse Ox O2 Delivery O2 Flow Rate FiO2 08/01/17 11:27 85 100 08/01/17 10:44 108 52/36 08/01/17 08:00 100.8 18 07/30/17 07:00 Mechanical Ventilator Intake and Output 08/01/17 08/01/17 08/02/17 08:00 16:00 00:00 Intake Total 1250 ml 600 ml Output Total 1560 ml Balance -310 ml 600 ml Result Diagram: 07/30/17 0513 07/31/17 0524 Imaging Last Impressions Chest X-Ray 07/27/17 0600 Signed Impressions: Service Date/Time: Thursday, July 27, 2017 03:42 - CONCLUSION: Left basilar opacity is present may be due to a combination of consolidation and or pleural effusion and probable mild pulmonary edema. Eduardo Casanova MD Head CT 07/25/17 0000 Signed Impressions: Service Date/Time: Tuesday, July 25, 2017 15:05 - CONCLUSION: Post surgical findings the left frontal region with decrease in size of left sided parenchymal hemorrhage. Surgical drain now in place. Intraventricular hemorrhage component again seen. Michel Phillips MD Objective Remarks GENERAL: 41-year-old female unresponsive on the vent, orotracheal intubation. SKIN: Cool and dry. Evolving bruises on trunk and extremities including the left face HEAD: Status post left temporoparietal craniotomy with ventriculostomy placed bilaterally. Serosanguineous CSF, now clearing. EYES: Right pupil 6 mm and nonreactive left is 6 mm and nonreactive ENT: Orotracheally intubated, NECK: Trachea midline. Right IJ is clean dry and intact CARDIOVASCULAR: RRR. S1, S2. No JVD. RESPIRATORY: Few crackles both bases, good bilateral air movement. Symmetrical excursion. GASTROINTESTINAL: Abdomen soft, non-tender, nondistended. Few bowel sounds are appreciated MUSCULOSKELETAL: Old appearing bruises on anterior pretibial regions. 1+ bilateral upper and lower extremity edema. Quattro catheter right femoral is clean dry and intact, used for lines, hypothermia off. NEUROLOGICAL: GCS 3T. No gag. No cough. No corneals or Doll's Eyes. Pupils 6 mm , no reaction. Date of Insertion: Jul 24, 2017 Line: Central Venous Catheter Side: Right Location: Internal, Jugular A/P Assessment and Plan NEURO/PSYCH: Severe left basal ganglia and thalamic hemorrhage with intraventricular extension 1.3 cm [id number] midline shift Severe acute encephalopathy Alcohol abuse THC -Postop left frontal temporal craniotomy with ventriculostomy replacement with evacuation of hematoma Dr. Hill - Postop day #2 right frontal wesley hole/ventriculostomy placement -Currently on mannitol 25 g IV every 8. Hold if serum osm greater than 315. Currently 320 - Keep Na above 145 in less than 155 3% saline. Currently off as sodium is 161 -Levetiracetam 500 mg IV twice a day 7 days for seizure prophylaxis -Currently on propofol at 70 mcg/kg per minute, fentanyl drip at 350 grams an hour and midazolam @ 12 milligrams an hour for sedation/analgesia while intubated for sedation and vent synchrony Currently on cisatracurium drip at 4 mcg/kg per minute to maintain train-of- four 1 out of 4 - End tidal CO2 35-40 -adjust 30-35 for elevated ICPs - Right Ventriculostomy -0 Cm H2O 46 cc ss left ventriculostomy 0 cm H2O 43 cc with ss - Follow up CT head in 07/25 revealed interval craniotomy. Surgical drain is in place in the region of the left basal ganglia. There's been interval decrease in size of parenchymal hemorrhage in this area now measuring 4.1 x 2.5 cm compared to 5.2 x 4.8 cm. Decrease in [id number] midline shift, now measuring 5 mm compared to 14 mm on the prior study. Persistent extensive intraventricular component of hemorrhage involving the anterior and posterior horns of lateral ventricles as well as the third ventricle and fourth ventricle. - Supplement multivitamin thiamine and folic acid and multivitamin daily - Further recommendation per Dr. Hill - 07/26 - status post 9.3 Kiswahili 45 cm Quattro intravascular temperature management catheter to maintain induce hypothermia 34C - 07/29 Temp 92-93. RESP: Acute respiratory failure - PRVC 20/550/1.05/ - vent bundle -Albuterol/ipratropium aerosols every 6 hours scheduled and when necessary albuterol aerosols every 2 hours as needed dyspnea No spontaneous breathing trials while on continuous paralytic - Chest x-ray 07/27 revealed worsening aeration left lower lobe and possible small pleural effusion. CV: Hypertensive emergency - resolved Currently on norepinephrine drip at 12 mics grams per minute to maintain cerebral perfusion pressure greater than 65 - As needed nicardipine infusion, hydralazine 20 mg IV every 4 hours when necessary to keep SBP less than 150 diastolic blood pressure less than 90 - 2-D echo if patient makes meaningful recovery GI: Hypoalbuminemia Ileus Start on vital 1.5 goal 45 cc an hour at currently 10 cc an hour High residuals start metoclopramide 10 mill grams IV every 8 hours Lansoprazole 30 mg daily for GI prophylaxis Docusate sodium 100 twice a day, senna 8.6 mg twice a day for bowel regimen. Add polyethylene glycol 17 g twice a day and lactulose 30 cc 4 times daily. Glycerin suppository 1 today. Methylnaltrexone 12 mg subcutaneous 1 today. Check abdominal x-ray. Ileus oersists with no meaningful gastric emptying - place NG to suction until rewarmed. : - Monitor renal function closely. Foster catheter. IV hydration as above ID: - Perioperative antibiotics per Dr. Hill - Monitor for infection Blood cultures 2, sputum 12/24 no growth to date HEME: Normocytic anemia Thrombocytopenia - Monitor CBC, CMP, coags ENDO: Sliding-scale insulin with Novulin R with Accu-Cheks every 6 hours to maintain euglycemia/moderate regimen FEN: Hypernatremia Hypo-potassium Hypophosphatemia Hypo-magnesium Replace electrolytes as clinically indicated per ICU electrolyte protocol PROPH: - Bilateral lower extremity SCDs. Pharmacological DVT prophylaxis is contraindicated due to intracranial hemorrhage. Lansoprazole for GI prophylaxis Overall impression: Patient remains critically ill s/p rescue decompression large left brain parenchymal hematoma and persistent cerebral edema. Hypothermia and maximum medical therapy to reduce edema attempted. Now with ongoing neurological deterioration and unresponsive. Appears to have herniated. Critical Care 44 mins Pj Marquez MD Aug 01, 2017 13:05
[2017-08-01] MEDS ORDERED: SODIUM CHLOR 0.9% 1000 ML INJ 1,000 ML IV ONE (13:15)
[2017-08-01] MEDS: FOLIC ACID 1 MG TAB PO SCH (16:11)
[2017-08-01] MEDS: SENNOSIDES SYRUP 8.8 MG/5 ML CUP NG SCH (16:11)
[2017-08-01] MEDS: THIAMINE HCL 100 MG TAB PO SCH (16:11)
[2017-08-01] MEDS: POLYETHYLENE GLYCOL 17 GM PKG PO SCH (16:11)
[2017-08-01] MEDS: LANSOPRAZOLE SOLUTAB 30 MG TAB NG SCH (16:12)
[2017-08-01] MEDS: FUROSEMIDE 20 MG/2 ML VIAL IV PUSH SCH (16:12)
[2017-08-01] MEDS: levETIRAcetam INJ 500 MG in SODIUM CHLORIDE 0.9% INJ 100 ML IV SCH (16:12)
--- NOTE | 2017-08-01 18:14 | DEATH SUM ---
Summary Demographics Date Pronounced : Aug 01, 2017 Time Of : 1650 Pronounced By: Gloria Mercer Rn Preliminary Cause of : Other (Hemorrhagic stroke) Pj Marquez MD Aug 01, 2017 18:14
--- NOTE | 2017-08-01 18:16 | HHI.DS ---
Discharge Summary Admission Date Jul 24, 2017 at 18:42 Discharge Date: Aug 01, 2017 Admitting Diagnosis ICH (1) Intracranial hemorrhage ICD Code: I62.9 - Nontraumatic intracranial hemorrhage, unspecified Diagnosis: Principal (2) Hypertensive emergency ICD Code: I16.1 - Hypertensive emergency Diagnosis: Principal (3) Acute encephalopathy ICD Code: G93.40 - Encephalopathy, unspecified Diagnosis: Principal (4) Acuter respiratory failure Diagnosis: Principal Procedures Left craniotomy and evacuation of hematoma Brief History Patient is a 41-year-old female, with possible history of hypertension , alcohol abuse who was brought to the [facility] emergency department as a stroke alert. Apparently EMS was called after patient was found severely altered by with weakness on the right side. Initial blood pressure was 250s over 150. Patient started to seize and 2 mg Ativan given. Attempted intubation failed due to clenched jaw intubation. EMS gave lidocaine preparation for intubation. GCS 3 at scene and in ED. 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 Her initial BP in ED was 284/170. Patient was intubated by Dr. Rangel and was placed on propofol infusion, Cardene was initiated for blood pressure control. A stat CT of the head showed more than 5 cm intraparenchymal hemorrhage overlying left parietal left thalamus and left mesencephalon, with 1.3 cm left- to-right midline shift. Her intracranial hemorrhage most likely secondary to hypertensive emergency and not trauma or assualt related I evaluated the patient immediately in the emergency department. On my exam patient is comatose on the vent as received propofol boluses and currently is on nicardipine 5 mg per hour for blood pressure control. Right pupil is 5 mm left is 6 both and nonreactive . Patient shows extensive posturing to painful stimuli. Patient has received 25 g of mannitol, additional 12.5 mg ordered by neurosurgeon. Current SBP 270, I instructed the RN immediately give 50 mg propofol bolus, 100 g fentanyl bolus, and increase nicardipine infusion to 20 mg per hour. I also ordered as needed hydralazine and also sodium nitroprusside infusion in case we cannot control her blood pressure adequately. Dr. Hill arrived at the ED and the case was extensively discussed with him. The patient has suffered a devastating intracranial hemorrhage with poor chance of survival, however due to relatively young age Dr. Hill has offered significant for evacuation of the bleed. Prognosis remained poor even with surgery CBC/BMP: 07/30/17 0513 07/31/17 0524 Significant Findings Laboratory Tests Test 07/29/17 21:28 07/30/17 02:30 07/30/17 05:13 07/30/17 12:30 Potassium Level 2.5 MEQ/L (3.5-5.1) Serum Osmolality 323 MOSM/KG (275-295) 325 MOSM/KG (275-295) 321 MOSM/KG (275-295) Blood Gas HCO3 16 mmol/L (22-26) Blood Gas Base Excess -10.0 mmol/L (-2-2) Arterial Blood pH 7.23 (7.380-7.420) Blood Gas Hemoglobin 10.3 G/DL (12.0-16.0) Red Blood Count 3.24 MIL/MM3 (4.00-5.30) Hemoglobin 10.7 GM/DL (11.6-15.3) Hematocrit 31.0 % (35.0-46.0) Total Protein 4.8 GM/DL (6.4-8.2) Calcium Level 7.4 MG/DL (8.5-10.1) Sodium Level 161 MEQ/L (136-145) 162 MEQ/L (136-145) Chloride Level 134 MEQ/L (98-107) Carbon Dioxide Level 18.6 MEQ/L (21.0-32.0) Test 07/30/17 19:56 07/31/17 05:24 08/01/17 05:20 08/01/17 09:34 Phosphorus Level 5.9 MG/DL (2.5-4.9) 7.5 MG/DL (2.5-4.9) Blood Urea Nitrogen 20 MG/DL (7-18) Random Glucose 68 MG/DL (74-106) Calcium Level 7.5 MG/DL (8.5-10.1) Sodium Level 158 MEQ/L (136-145) Chloride Level 127 MEQ/L (98-107) Carbon Dioxide Level 20.2 MEQ/L (21.0-32.0) Estimat Glomerular Filtration Rate 82 ML/MIN (>89) Serum Osmolality 319 MOSM/KG (275-295) Direct Bilirubin 0.3 MG/DL (0.0-0.2) Aspartate Amino Transf (AST/SGOT) 66 U/L (15-37) Alkaline Phosphatase 147 U/L (45-117) Total Protein 4.7 GM/DL (6.4-8.2) Albumin 1.3 GM/DL (3.4-5.0) Imaging CT head - massive left ICH PE at Discharge . Transfer Summary Brain blood flow study revealed no flow - brain . Family elected to withdraw artificial support. Patient at 1650. Family at bedside. Hospital Course Patient is a 41-year-old female, with possible history of hypertension , alcohol abuse who was brought to the [place] [place] emergency department as a stroke alert. Apparently EMS was called after patient was found severely altered by with weakness on the right side. Initial blood pressure was 250s over 150. Patient started to seize and 2 mg Ativan given. Attempted intubation failed due to clenched jaw intubation. EMS gave lidocaine preparation for intubation. GCS 3 at scene and in ED. 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 Her initial BP in ED was 284/170. Patient was intubated by Dr. Rangel and was placed on propofol infusion, Cardene was initiated for blood pressure control. A stat CT of the head showed more than 5 cm intraparenchymal hemorrhage overlying left parietal left thalamus and left mesencephalon, with 1.3 cm left- to-right midline shift. Her intracranial hemorrhage most likely secondary to hypertensive emergency and not trauma or assualt related I evaluated the patient immediately in the emergency department. On my exam patient is comatose on the vent as received propofol boluses and currently is on nicardipine 5 mg per hour for blood pressure control. Right pupil is 5 mm left is 6 both and nonreactive . Patient shows extensive posturing to painful stimuli. Patient has received 25 g of mannitol, additional 12.5 mg ordered by neurosurgeon. Current SBP 270, I instructed the RN immediately give 50 mg propofol bolus, 100 g fentanyl bolus, and increase nicardipine infusion to 20 mg per hour. I also ordered as needed hydralazine and also sodium nitroprusside infusion in case we cannot control her blood pressure adequately. Dr. Hill arrived at the ED and the case was extensively discussed with him. The patient has suffered a devastating intracranial hemorrhage with poor chance of survival, however due to relatively young age Dr. Hill has offered significant for evacuation of the bleed. Prognosis remained poor even with surgery 07/25: Ventriculostomy clotted off overnight. Will be replaced as AM. Currently on midazolam, propofol and fentanyl drips for sedation. Last ICP was 7-11 per RN. Initiate tube feeding and bowel regimen today. 07/26: Patient continues with bilateral ventriculostomies. Overnight received 1 dose of hypertonic saline and potassium. ICP is currently 25. Started on cisatracurium remain elevated. Discussed with Dr. Hill. We will place cooling catheter. 07/27: ICP is currently at 16. Ventilator adjusted. Remains on maximum sedation with propofol, fentanyl, midazolam and paralyzed with cisatracurium and intravascularly cooled to 34C. Remains on trickle feeds. No bowel movement. Subjective 07/28: ICP is currently at 13. Received 1 dose of metal overnight due to elevated ICP around 30. Ventilator adjusted for end tidal CO2. Not tolerating tube feeding. Increasing metoclopramide 10 mg IV every 8 hours. Remains paralyzed and involving a intravascular cooling device for targeted temperature management. 07/29: ICP 15 - 22 range. Na 161, osmolality > 330. EtCO2 at lower level normal range. Heavily sedated, large analgesia dose. Relaxant to prevent shivering while hypothermia continues. This is maximal therapy for all intents and purposes. 07/30: ICP control acceptable. Temp now 97. Stop relaxant, wean sedation. 07/31: Pupils dilated. Unable to control ICP. Unresponsive. 08/01: Pupils fixed at 6 mm. No cough, gag, or corneal reflexes. Will send for cerebral flow study - suspect brain . No flow on brain scan -> brain . Pt Condition on Discharge: Deteriorating Pj Marquez MD Aug 01, 2017 18:16
== END 2017-08-01 18:36 | disposition expired | DRG 23 ==
LOC: NEPE 17:57 → NEDA 18:42 → N03A 21:08
PROVIDERS: ADMIT Internal Medicine; ATTEND Internal Medicine
PROC: 5A1955Z Respiratory Ventilation, Greater than 96 Consecutive Hours (ICD-10-PCS; 2017-07-24)
PROC: 009600Z Drainage of Cerebral Ventricle with Drainage Device, Open Approach (ICD-10-PCS; 2017-07-24)
PROC: 0T9B70Z Drainage of Bladder with Drainage Device, Via Natural or Artificial Opening (ICD-10-PCS; 2017-07-24)
PROC: 0BH17EZ Insertion of Endotracheal Airway into Trachea, Via Natural or Artificial Opening (ICD-10-PCS; 2017-07-24)
PROC: 05HM33Z Insertion of Infusion Device into Right Internal Jugular Vein, Percutaneous Approach (ICD-10-PCS; 2017-07-24)
PROC: 00C00ZZ Extirpation of Matter from Brain, Open Approach (ICD-10-PCS; principal; 2017-07-24 19:16)
PROC: 009630Z Drainage of Cerebral Ventricle with Drainage Device, Percutaneous Approach (ICD-10-PCS; 2017-07-25)
PROC: 06HM33Z Insertion of Infusion Device into Right Femoral Vein, Percutaneous Approach (ICD-10-PCS; 2017-07-26)
DX: I61.0 Nontraumatic intracerebral hemorrhage in hemisphere, subcortical (principal); G93.40 Encephalopathy, unspecified; G93.5 Compression of brain; J96.00 Acute respiratory failure, unspecified whether with hypoxia or hypercapnia; G93.6 Cerebral edema; K56.7 Ileus, unspecified; I16.1 Hypertensive emergency; E87.0 Hyperosmolality and hypernatremia; R56.9 Unspecified convulsions; Z78.1 Physical restraint status; F10.10 Alcohol abuse, uncomplicated; Z86.73 Personal history of transient ischemic attack (TIA), and cerebral infarction without residual deficits; F12.90 Cannabis use, unspecified, uncomplicated; I61.8 Other nontraumatic intracerebral hemorrhage; E83.42 Hypomagnesemia; E83.39 Other disorders of phosphorus metabolism; E88.09 Other disorders of plasma-protein metabolism, not elsewhere classified; R47.81 Slurred speech; I10 Essential (primary) hypertension; Z82.3 Family history of stroke; Z51.5 Encounter for palliative care; H57.04 Mydriasis; Z83.3 Family history of diabetes mellitus; Z82.49 Family history of ischemic heart disease and other diseases of the circulatory system; Z66 Do not resuscitate; D69.6 Thrombocytopenia, unspecified; D64.9 Anemia, unspecified
CPT/HCPCS: 31500; 36556; 36600; 61210; 70450; 71010; 74000; 76937; 78606; 80048; 80053; 80076; 80307; 81001; 82550; 82552; 82805; 82948; 83735; 83930; 84100; 84132; 84155; 84295; 84300; 84484; 84702; 85007; 85025; 85027; 85384; 85610; 85730; 87641; 93005; 94002; 94003; 94640; 94664; 94770; 95819; 96374; 96375; A9539; C1713; C9113; J0330; J0360; J0610; J0690; J1580; J1940; J1953; J2150; J2212; J2250; J2370; J2765; J2997; J3010; J3370; J3411; J3475; J3480; J7030; J7040; J7042; J7050